=== PATIENT | female | born 1975 | race Caucasian/White ===

== ENCOUNTER 2016-04-26 09:48 | Emergency (ER) | payer BC, MEDICAID ==
[2016-04-26 11:24] VITALS: BP 120/79
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
== END 2016-04-26 12:15 | disposition home or self-care (01) ==
LOC: UCEAST 09:48
DX: J40 Bronchitis, not specified as acute or chronic (principal); R09.81 Nasal congestion; Z88.5 Allergy status to narcotic agent; Z88.6 Allergy status to analgesic agent; Z88.2 Allergy status to sulfonamides; Z96.652 Presence of left artificial knee joint; Z90.49 Acquired absence of other specified parts of digestive tract; Z72.0 Tobacco use
CPT/HCPCS: 99211; G0463

== ENCOUNTER 2017-04-05 17:10 | Emergency (ER) | payer BC, MEDICAID ==
--- OUTSIDE RECORDS SUMMARY | 2017-04-05 17:33 | XMS REPORT ---
:1975 External Reference #:[id number] Author Organization [facility] Address [address] [address] Phone [phone] Care Team Providers Name Role Phone Bessie Garrett MD Primary Care Physician Unavailable Payers Type Date Identification Numbers Payment Provider Subscriber Commercial Policy Number: [id number] JULIO Justin Del Rosario PayID: [id number] [address] [address] A[place]UR[place] Allen [address] Medigap Part B Effective: 2015 Policy Number: [id number] Medicaid Brenna Del Rosario Group Name: 1 1 [address] PayID: [id number] [place] [address] Medigap Part B Expires: 2016 Policy Number: Willem Del Rosario [id number] PayID: [id number] [address] [address] AMAURY Molina [address] Medigap Part B Effective: 2013 Policy Number: JULIO Justin Del Rosario [id number] Expires: 2016 PayID: [id number] [address] [address] A[place]UR[place] Allen [address] Medigap Part B Effective: Policy Number: Willem Del Rosario 2005 [id number] JR Expires: 2012 Group Name: Expires [address] [address] PayID: [id number] AMAURY Molina [id number] Problems Date Description Provider Status Onset: 11/11/2010 Anxiety state Cori Kaur N.PDottie Active Onset: 11/11/2010 Depressive disorder Cori Kaur N.Rizwan Active Onset: 11/11/2010 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 Active Onset: 02/25/2016 Knee pain Guille Jimenez M.D. Active Onset: 02/25/2016 Arthroplasty of knee Guille Jimenez M.D. Active Onset: 02/25/2016 Arthralgia of the pelvic region and Guille Jimenez M.D. Active thigh Family History Date Family Member(s) Problem(s) Comments General Heart Disease General Cancer Father due to brain hemorrhage () - age 49 Mother Hypertension Breast Cancer age 72 First Brother Alive And Well age 52 Second Brother Hypertension age 45 First Sister Hypertension Leiden Factor V, Degenerative Disc Disease age 49 Social History Type Date Description Comments Marital Status Occupation Stylist ETOH Use Rarely consumes alcohol Smoking Patient is a former smoker As a teen smoked casually Exercise Type/Frequency Exercises sporadically Currently unable to due to chronic knee pain Allergies, Adverse Reactions, Alerts Date Description Reaction Status Severity Comments 11/27/2009 Latex Urticaria, TOUCH ONLY active Moderate 11/27/2009 Compazine LOCK JAW active Moderate 11/27/2009 Codeine Nausea and Vomiting active Severe 11/27/2009 Sulfa SWELLING active Severe 11/27/2009 Darvocet Urticaria active Severe 11/27/2009 Demerol SEIZURE active Severe 11/28/2009 Reglan ANXIOUS active Moderate 01/30/2016 Ibuprofen active bleeding ulcers. Medications Medication Date Status Form Strength Qnty SIG Indications Ordering Provider Tramadol HCL 03/08 Active Tablets 50mg 60tab 1 - 2 R10.12 Bessie /2017 s tablets Cotton, every 6 M.D. hours as needed T.E.D. 03/08 Active Misc 1Pair for daily Bessie Anti-Embolism use Cotton, Stockings Thigh M.D. High Cyclobenzaprine 03/04 Active Tablets 10mg 30tab 1 tablet 3 M79.605 Bessie HCL s times Cotton, daily as M.D. needed Warfarin Sodium 03/04 Active Tablets 5mg 60tab take 2 I82.492 Bessie s tablets Cotton, tonight M.D. and and Tuesday, then 1 tablet daily Oxycodone HCL 03/04 Active Tablets 5mg 40tab 1 tabs by I82.492 Bessie /2017 s mouth Cotton, every 4 M.D. hours as needed Trazodone HCL 04/02 Active Tablets 100mg 60tab Take 2 s Tablets By Varn, N.P. Mouth At Bedtime Omeprazole 03/[address] 20mg 180ta 1 by mouth Z23 bs twice a Varn, N.P. day Topamax 03/25 Active Tablets 25mg 120ta 2 by mouth bs twice a Varn, N.P. day Gabapentin 01/29 Active Capsules 300mg 60cap 2 by mouth M25.562 s at bedtime Varn, N.P. Tylenol Active Capsules 325mg once a day Unknown / Zofran Active Tablets 4mg 1 tab by Unknown /0000 mouth every 6 hours as needed nausea Compression 03/08 Hx Misc 1Pair knee high [facility] - wear Cotton, - daily, M.D. 03/08 remove at night dx z86.718 Propranolol HCL 05/19 Hx Tablets 60mg 30tab 1 by mouth G43.909 s every day Varn, N.P. Trazodone HCL 03/19 Hx Tablets 50mg 30tab 1 tablet s at bedtime Varn, N.P. - as needed 04/02 Gabapentin 03/05 Hx Tablets 600mg 60tab Take 1 by s mouth Barbara, - twice a M.D. Neurontin 02/24 Hx Capsules 100mg 60cap additional s one by Barbara, - mouth M.D. 03/29 night at bedtime, may take second during the day No Active 01/29 Hx Unknown Medications - 01/29 Celebrex 07/03 Hx Capsules 200mg 60cap 1 by mouth G89.4 s up to Varn, N.P. - twice 01/29 daily /2015 Tramadol HCL 01/09 Hx Tablets 50mg 40tab 1 - 2 R10.12 s tablets Varn, N.P. - every 6 04/03 hours needed Alprazolam 12/30 Hx Tablets 0.25mg 30tab one by s mouth up Varn, N.P. - to twice 04/03 daily, needed for anxiety Promethazine HCL 09/30 Hx Tablets 25mg 30tab One po q 6 577.0 s hrs pn Varn, N.P. - nausea 04/03 Tramadol HCL 09/30 Hx Tablets 50mg 40tab 1 - 2 577.0 s tablets Varn, N.P. - every 6 08/12 hours needed Hydrocodone-Acet 09/18 Hx Tablets 5-325mg 30tab 1-2 tabs 789.06 Marcellus aminophen s by mouth David TRAVELING SALES REPRESENTATIVE - q4 hours 09/19 as needed pain limit 6 tabs per day Wellbutrin SR 08/14 Hx 150mg 30uni one daily ts by mouth Isamar [employer]VELING SALES REPRESENTATIVE - 08/14 Wellbutrin XL 08/14 Hx Tablets ER 150mg 30tab 1 by mouth 24HR s every day Varn, N.P. - 10/31 Concerta 07/22 Hx Tablets ER 54mg 30tab 1 by mouth s every day Varn, N.P. - 10/31 Tramadol HCL 07/14 Hx Tablets 50mg 40tab 2 tablets Arnol E. s every 6 Irene, - hours as M.D. 08/14 needed Famciclovir 07/14 Hx Tablets 500mg 1 by mouth three a - day 08/29 Alprazolam 06/28 Hx Tablets 0.5mg 30tab one by Cori s mouth up Varn, N.P. - to twice a 12/30 day needed anxiety Methylphenidate 06/28 Hx Tablets 10mg 30tab one by Cori HCL s mouth Varn, N.P. - every 11/01 Ultracet 06/11 Hx Tablets 37.5-325m 30tab one by g s mouth Barbara, - every 6 M.D. 08/14 hours needed for pain Triamcinolone 06/10 Hx Cream 0.1% 30gm apply 782.1 Cori Acetonide twice a Varn, N.P. - day until 09/18 Diflucan 03/15 Hx Tablets 150mg 3tabs take 1 616.10 Basil tablet PRISCA Penn - every 72 06/10 hrs for doses Nortriptyline 02/26 Hx Capsules 75mg 60cap 2 tabs by Cori s mouth Varn, N.P. - every 06/26 night at bedtime Percocet 02/26 Hx Tablets 5-325mg 48tab 1 by mouth s daily as Barbara, - needed M.D. 06/15 pain Nortriptyline 02/08 Hx Capsules 25mg 40cap two tabs s po qhs, Barbara, - increase M.D. 02/26 to 3 tabs /2013 on 02/18, then 4 tabs on 02/22. Cyclobenzaprine 02/06 Hx Tablets 10mg 30tab one by s mouth Barbara, - every 8 M.D. 07/16 hours needed Percocet 01/31 Hx Tablets 10-325mg 21tab 1 by mouth s bid Barbara, - prn,take M.D. 02/26 with additiona esl tylenol tab if inadequate pain relief. After 7 days, decrease to one qd Percocet 01/30 Hx Tablets 10-650mg 112ta one tab po bs q6H prn Barbara, - M.D. 01/31 Morphine Sulfate 01/25 Hx Tablets ER 30mg 21tab 1 tab by Guille ER s mouth Barbara, - twice a M.D. 02/08 day for pain x 7 days, then one tab po daily x 7 days Oxycodone HCL 01/21 Hx Capsules 5mg 16cap 1-2 tabs s [id number] as Barbara, - needed for M.D. 01/30 break through pain Coumadin 01/15 Hx Tablets 2.5mg 60tab take as s directed Barbara, - at 5pm M.D. 02/08 Colace 01/15 Hx Capsules 100mg 60cap one s capsule Barbara, - two times M.D. 03/14 a day needed constipati on Cipro 01/12 Hx Tablets 500mg 10tab 1 table by Kostas s mouth Maurer, - twice a M.D. Mupirocin 01/08 Hx Ointment 2% 22gm apply once 719.46 daily to Vincent, N.P. - rash 06/10 Seasonique 11/22 Hx Tablets 0.15-0.03 91tab take 1 &0.01 s tablet by Vincent N.P. - mg mouth once 08/29 a Oxycodone HCL 09/06 Hx Capsules 5mg 24cap 1-2 tab by s mouth Barbara, - every 6 M.D. 09/12 hours needed pain Oxycodone HCL 08/29 Hx Capsules 5mg 98cap one to two s tabs by Barbara, - mouth four M.D. 12/18 times day as needed severe pain Percocet 08/23 Hx Tablets 5-325mg 46tab 1-2 tabs s by mouth Barbara, - q4-6 hours M.D. 01/30 as needed for pain. Augmentin 07/23 Hx Tablets 500-125mg 14tab take 1 786.2 s tablet by Livier, - mouth M.D. 08/28 every hours Cleocin 07/20 Hx Cream 2% 1unit 1 616.10 s applicator Jerica, - intravagin M.D., [facility] 07/30 ally at bedtime for 7 nights Azithromycin 07/18 Hx Tablets 250mg 6tabs two tabs 786.2 day one, Jerica, - one daily M.D., FACP 07/23 till Flovent HFA 07/16 Hx Aerosol 44mcg/Act 1unit 2 puffs 786.2 s twice Jerica, - daily for M.D., FACP 08/15 Benzonatate 07/16 Hx Capsules 200mg 40cap take 1 786.2 s capsule by Jerica, - mouth M.D., FACP 07/30 times a day Cleocin 06/15 Hx Cream 2% 1unit 1 616.10 s applicator Varn, N.P. - intravagin 07/16 ally at bedtime for 7 nights Metronidazole 05/23 Hx Gel 0.75% QS insert 1 Vaginal applicator Livier, - ful M.D. 07/16 vaginally daily for 5 days at bedtime for vaginosis caused by bacteria Diflucan 05/22 Hx Tablets 150mg 3tabs take 1 616.10 tablet Livier, - every 72 M.D. 07/16 hrs for doses Cyclobenzaprine 04/08 Hx Tablets 10mg 90tab Take One s Tablet By Livier, - Mouth M.D. 05/22 Times Daily as Needed Tramadol HCL 03/09 Hx Tablets 50mg 10tab Take 03/22 338.4 s tablet Varn, N.P. - every 8hrs 04/09 prn pain Tramadol HCL 03/06 Hx Tablets 50mg 8tabs Take 03/22 525.9 tablet Livier, - every 8hrs M.D. 03/09 prn pain Morphine Sulfate 02/07 Hx Tablets 15mg 60tab Take 1 s tablet Livier, - twice M.D. 05/22 daily Trazodone HCL 01/15 Hx Tablets 100mg 60tab one to two s by mouth Varn, N.P. - at bedtime 06/26 as needed sleep Clonidine HCL 01/15 Hx Tablets 0.1mg 60tab Take 1 292.0 s tablet Livier, - twice M.D. 03/02 Citalopram 01/15 Hx Tablets 10mg 60tab take 1 300.02 Nancy Hydrobromide s tablet Livier, - daily for M.D. 05/22 7 days then increase to 2 tablets daily Morphine Sulfate 12/28 Hx Caps ER 30mg 21cap Take 1 Guille ER 24HR s capsule by Barbara, - mouth two M.D. 01/25 times a day for 7 days. Then take 1 capsule by mouth daily for 7 days. Morphine Sulfate 12/27 Hx Caps ER 10mg 22cap Take 1 24HR s tablet Livier, - daily with M.D. 12/28 tablet for total of 30mg per day Morphine Sulfate 12/25 Hx Tablets 30mg 30tab 1 po daily s Livier, - M.D. 12/26 Flovent HFA 12/18 Hx Aerosol 44mcg/Act 10.60 inhale 1 0gm puff by Livier, - mouth M.D. 03/06 daily for asthma Azithromycin 12/14 Hx Tablets 250mg 6tabs two tabs day one, Varn, N.P. - one daily 12/18 till Proair HFA 12/14 Hx Aerosol 108(90Bas 3unit 1 to 2 e) s inhalation Varn, N.P. - mcg/Act s every 4 12/28 hours needed Benzonatate 12/14 Hx Capsules 100mg 30cap one by s mouth Varn, N.P. - three 12/28 times daily as needed for cough Tramadol HCL 12/08 Hx Tablets 50mg 90tab Take 1 s tablet Livier, - every 8hrs M.D. 01/15 prn Flexeril 12/04 Hx Tablets 10mg 90tab 1 po tid 719.46 s prn Livier, - M.D. 05/22 Morphine Sulfate 11/17 Hx Caps ER 20mg 30cap Take 1 24HR s tablet Livier, - once daily M.D. 01/15 Butrans 11/13 Hx Patches 10mcg/HR 4unit Apply 1 338.4 Weekly s patch Livier, - every 7 M.D. Baclofen 11/13 Hx Tablets 10mg 30tab take 03/22 719.46 s to 1 Livier, - tablet up M.D. 12/04 to times daily for muscle spasm Percocet 10/25 Hx Tablets 5-325mg 6tabs take 1 719.46 tablet Livier, - every M.D. 11/17 6-8hrs with 7.5mg tablet for pain Percocet 10/25 Hx Tablets 7.5-325mg 20tab take 1 s tablet bid Livier, - prn pain M.D. 12/08 Percocet 09/04 Hx Tablets 7.5-325mg 56tab Take 1 719.46 s tablet Varn, N.P. - every 6hrs 10/25 for pain Percocet 09/04 Hx Tablets 5-325mg 14tab Take 1 719.46 s tablet Livier, - once daily M.D. 09/18 with 7.5mg tablet for pain Percocet 08/23 Hx Tablets 10-650mg 14tab take 1 s tablet Livier, - once daily M.D. 10/02 as needed for pain relief Percocet 07/31 Hx Tablets 5-325mg 42tab Take 1 s tablet tid Livier, - with 7.5mg M.D. 08/23 tablet for pain Meloxicam 07/21 Hx Tablets 7.5mg 60tab Take One s Tablet By Livier, - Mouth M.D. 01/15 Twice Daily For 5 Days Then Twice Daily Asneeded Keflex 07/03 Hx Capsules 500mg 28cap 1 po qid x s 7 days Julio Cesar Jimenez M.D. 09/04 Percocet 06/14 Hx Tablets 7.5-325mg 42tab Take 1 s tablet Livier, - three time M.D. 08/23 daily with 5mg tablet for pain Percocet 06/12 Hx Tablets 5-325mg 40tab 1-2 po Guille s q4-6h prn Julio Cesar Jimenez pain M.D. 06/14 Ciprofloxacin 06/02 Hx Tablets 250mg 20tab one po bid Rebecca HCL Julio Cesar Hinojosa.DDottie 09/04 Phenazopyridine 06/02 Hx Tablets 100mg 6tabs 1 po bid Rebecca HCL Julio Cesar Peterson M.D. 01/15 Nitrofurantoin 04/26 Hx Capsules 100mg 14cap one po bid 599.0 Cori Monohydrate s for 7 days Varn, N.P. - 05/03 Phenazopyridine 04/26 Hx Tablets 100mg 9tabs 1 tablet 599.0 HCL po tid prn Varn, N.P. - 06/02 Flexeril 03/17 Hx Tablets 10mg 90tab 1 po tid 719.46 s prn Livier - M.DDottie 11/13 Flexeril 03/02 Hx Tablets 5mg 90tab 1 tablet 719.46 s three Varn, N.P. - times a 03/17 day needed Tramadol HCL 01/26 Hx Tablets 50mg 240ta 2 tablets bs May take q Livier, - 6h prn M.D. 11/13 pain Percocet 01/20 Hx Tablets 5-325mg 120ta take 1-2 bs tabs po Varn, N.P. - tid prn 06/02 pain Oxycodone HCL 01/10 Hx Tablets 10mg 40tab 1 po q 5pm 719.46 s & [facility] Barbara, - tue-tue, 1 M.D. 02/02 po q 6h sat-sun Vicodin HP 12/22 Hx Tablets 10-660mg 40tab 1 tabs po s qhs as Barbara, - needed for M.D. 02/02 pain Tue to Tue, may take po q6 Sat/Sun, start one week before surgery instead of the Percocet Azithromycin 12/16 Hx Tablets 250mg 6tabs two tabs day one, Varn, N.P. - one daily 12/26 till Benzonatate 12/16 Hx Capsules 200mg 30cap one by s mouth Varn, N.P. - three 12/26 times daily as needed for cough Lidoderm 12/08 Hx Patches 5% 30uni apply to ts affected Varn, N.P. - area for 09/04 12 hrs, remove for 12 hrs and repeat prn Aldara 12/06 Hx Cream 5% 12pac apply thin kets film to Varn, N.P. - affected 01/05 area times weekly for 4 weeks Voltaren Gel 5 10/31 Hx Gel 1% 5Tube apply 4 Obinna Pack (5 X 100 /2011 s grams Young, Gram Tubes Per - directly M.D. Month) 03/06 to area 4 times daily Promethazine HCL 10/31 Hx Tablets 25mg 60tab one po s every 12 Varn, N.P. - hours 05/22 Aldara 10/24 Hx Cream 5% 12pac apply thin 078.11 kets film to Varn, N.P. - affected 11/23 area times weekly for 4 weeks Percocet 10/24 Hx Tablets 10-650mg 40tab 1 po at 5 719.46 s pm and Barbara, - repeat at M.D. 01/10 bedtime Tuesday - Tuesday 1 po q 6 hours prn on tuesday and tuesday Percocet 08/22 Hx Tablets 5-325mg 120ta 2 po at 5 715.16 Obinna bs pm and july Usman, - repeat at M.D. 10/24 bed prn pain Tramadol HCL 07/19 Hx Tablets 50mg 120ta 2 Tablets bs three Varn, N.P. - times 05/24 Xanax 07/12 Hx Tablets 0.25mg 4tabs one by mouth Jerica, - prior to M.D., [facility] 08/22 travel Azithromycin 07/01 Hx Tablets 500mg 2tabs Tgake 2 tablets po Jerica, - M.D., [facility] 08/05 Cleocin 06/30 Hx Cream 2% 1unit 1 616.10 Bessie /2012 s applicator Cotton, - intravagin M.D. 07/07 all for 7 nights Oxycodone/Acetam 06/21 Hx Tablets 10-325mg 30tab take 1 Nancy inophen s tablet q Livier, - as needed M.D. 08/22 for pain control Oxycodone/Acetam 05/23 Hx Tablets 5-325mg 90tab 1-2 tab by Obinna inophen s mouth Usman, - every 4-6 M.D. 06/21 hours needed for pain Gabapentin 05/23 Hx Tablets 600mg 90tab 1 po tid s Varn, N.P. - 09/04 Percocet 05/11 Hx Tablets 5-325mg 20tab 1 po q4-6h s prn pain Usman, - M.D. 06/21 Promethazine HCL 05/04 Hx Tablets 12.5mg 30tab 1-2 tabs s by mouth Varn, N.P. - every 6 10/31 hours needed for nausea Celebrex 05/04 Hx Capsules 200mg 60cap 1 capsule s twice a Varn, N.P. - day as 01/15 needed Hydrocodone/Acet 04/26 Hx Tablets 5-325mg 45tab 1-2 po qid amino s prn Usman, - M.D. 06/21 Ciprofloxacin 04/08 Hx Tablets 250mg 6tabs one po bid Genesis HCL for 3 days Julio Cesar Pizano M.D., FACP 04/11 Clindamycin 04/06 Hx Cream 2% 1tube one 616.10 Bessie Phosphate applicator Cotton, - intravagin M.D. 04/13 ally hs for 7 nights Metronidazole 03/05 Hx Gel 0.75% 70gm Apply bid Bessie Vaginal intravagin Cotton, - ally x 5 M.D. Azithromycin 12/17 Hx Tablets 250mg 6tabs two tabs 461.9 Genesis day one, Jerica, - one daily M.D., FACP 12/27 till Fluticasone 12/17 Hx Suspension 50mcg/Act 1Mont 1 spray 461.9 Genesis Propionate h each Jerica, - nostril M.D., FACP 12/31 daily as needed Fluconazole 12/17 Hx Tablets 150mg 2tabs one by 461.9 mouth july Jerica, - repeat in M.D., [facility] 06/21 3 days needed Xanax 12/17 Hx Tablets 0.25mg 20tab one by 300.00 s mouth up Jerica, - to three M.D., FACP 06/21 daily as needed for anxiety Buspirone HCL 12/01 Hx Tablets 10mg 60tab 1 po bid 300.00 s Julio Cesar Pizano M.D., [facility] 12/17 Ranitidine HCL 12/01 Hx Tablets 150mg 60tab take one 787.02 s tablet by Jerica, - mouth M.D., [facility] 06/21 twice a day Xanax 10/29 Hx Tablets 0.25mg 15tab one by s mouth up Jerica, - to three M.D., [facility] 06/21 daily as needed for anxiety Metronidazole 10/21 Hx Gel 0.75% 180gm apply at 706.1 bedtime to Gerry, - affected M.D. 04/23 Macrobid 09/15 Hx Capsules 100mg 14cap 1 po bid s for 7 days Julio Cesar Pizano M.D., [facility] 09/22 Neurontin 07/28 Hx Tablets 600mg 7tabs 1 po qd Julio Cesar Pizano M.D., [facility] 10/24 Metadate CD 07/23 Hx Capsules ER 10mg 150ca 3 tablets ps at 8:00 Gerry, - am, 2 M.D. 11/17 tablets 2 pm Doxepin HCL 03/11 Hx Capsules 50mg 1 capsule at bedtime Gerry - M.DDottie 03/25 Tramadol HCL 03/11 Hx Tablets 50mg 90tab 1 to 2 Bessie /2010 s tablets [place], - every 4 - M.D. 06/21 6 hours needed for pain Wellbutrin XL 03/11 Hx Tablets ER 150mg 90tab 1 tablet 24HR s every [place], - morning M.D. 10/24 Lotrisone 02/24 Hx Cream 1-0.05% 15gm apply externally [place], - bid-tid M.D. 03/10 Zovia 1/35E 02/24 Hx Tablets 1-35mg-mc 1Mo 1 Tablet g Daily Gerry, - M.DDottie 11/17 Ortho Tri-Cyclen 01/05 Hx Tablets 0.18/0.21 1Mo 1 po qd 5/0.25 [place], - mg-2 M.D. 02/24 Benzaclin With 01/05 Hx Gel 1-5% 50gm Apply Twice Gerry, - Daily M.D. 04/15 Methylin ER 11/19 Hx Tablets ER 10mg 150ta 3 tablets bs at 8 am Gerry, - M.DDottie 07/23 tablets at 2 pm Lybrel Hx Patch 90-20mcg 1 pill daily Gerry - M.DDottie 01/05 Celebrex Hx Capsules 200mg 90cap 1 capsule s twice a Gerry, - day as M.D. 12/[address] Hx C[address]ules [address] 40mg 1 capsule daily Gerry - M.DDottie 11/28 Doxepin HCL Hx Capsules 100mg 2 tablets at bedtime Gerry - M.DDottie 01/05 Wellbutrin XL Hx TB24 300mg 30uni Take One ts Tablet By Gerry, - Mouth One M.D. 03/11 Time Trazodone HCL Hx Tablets 50mg 60tab 1 or 2 Cori /0000 s tablets at Varn, N.P. - bedtime as 01/15 Lybrel Hx Tablets 90-20mcg 1 tablet daily Gerry - M.DDottie 01/05 Remeron Hx Tablets 15mg 90tab 1 po hs Unknown / s - 08/05 Seroquel Hx Tablets 25mg 90tab 1 tablet Unknown /0000 s in morning - and at 08/05 bedtime /2011 Lamictal 00 Hx Tablets 100mg 180ta Take 200mg Nancy /0000 bs once daily Livier - M.DDottie 03/12 Gabapentin Hx Tablets 600mg 60tab Take 2 Nancy /0000 s tablets Livier, - QHS M.D. 05/22 Gabapentin Hx Capsules 300mg 120ca Take Unknown /0000 ps 1200mg at night Adderall Hx Tablets 10mg 60tab 2 po qam Unknown /0000 s and 3 po - qpm 11/22 Citalopram Hx Tablets 20mg 1 po qd 300.02 Unknown Hydrobromide /0000 - 01/08 Vyvanse Hx Capsules 70mg 1 capsule Unknown /0000 by mouth - daily 03/12 Xanax Hx Tablets 1 po bid Varn, /0000 prn Cori - TRAVELING SALES REPRESENTATIVE 08/29 Gabapentin Hx Tablets 600mg 120ta take 1 Guille / bs tablet by Barbara, - mouth in M.D. 06/26 morning, take 2 tabs by mouth at bedtime Oxycontin 00/ Hx Tab ER 12H 10mg by mouth Unknown /0000 Abuse-Det every 12 - hours 10/10 Oxycodone HCL Hx Capsules 5mg 20cap 1 tablet Cori / s every 6 Varn, N.P. - hours as 10/02 pain Oxycodone 00 Hx 5/325 mg 1-2 q 8 Unknown /Acetaminophen /0000 hours prn - 01/29 Ferrous Sulfate Hx Tablets 325(65Fe) 1 by mouth Unknown /0000 mg every day - 01/29 Famotidine Hx Tablets 40mg 1 by mouth Unknown /0000 twice a - day 01/29 Celebrex Hx Capsules 200mg 1 by mouth Unknown /0000 every day - 01/10 Neurontin Hx Tablets 600mg take one Unknown /0000 tablet by - mouth in 04/02 morning and afternoon. Medications Administered in Office Medication Date Status Form Strength Qnty SIG Indications Ordering Provider PPD Administered Injection Cori Owens Varn, N.P. PPD Administered Injection Cori 017 Vincent N.Rizwan PPD Administered Injection Nurse Visit 015 A Depomedrol Administered Injection Obinna 80MG 012 Swathi Mary Immunizations CPT Code Status Date Vaccine Reaction Lot # [id number] Given 01/10/2017 Influenza Virus Vaccine, No immediate [id number] Quadrivalent, Split, reaction...jh Preservative Free Q2039 Given 01/20/2016 Flu Vaccine NOS [id number] Given 01/10/2014 Flu Vaccine Split Virus [id number] Preservative Free For Indiv 3Yr Older 15705 Given 11/22/2013 Pneumococcal Conjugate [id number] Vaccine 13 Valent For Intramuscular Use 09474 Given 01/30/2013 Flu Vaccine Split Virus [id number] Preservative Free For Indiv 3Yr Older Q2038 Given 01/03/2012 Fluzone Vaccine [id number] Given 08/23/2011 Tdap - [id number] Tetanus/Diptheria/Acellula r Pertussis 12041 Given 01/13/2011 Influenza Virus 3Yrs & [id number] Over 71450 Given 11/26/2008 Influenza Virus 3Yrs & Over Vital Signs Date Vital Result Comment 03/04/2017 Weight 129.25 lb Heart Rate 80 /min BP Systolic 110 mmHg BP Diastolic 70 mmHg Body Temperature 98.8 F O2 % BldC Oximetry 99 % 02/15/2017 Weight 127.00 lb Heart Rate 72 /min BP Systolic 120 mmHg BP Diastolic 80 mmHg Respiratory Rate 16 /min Body Temperature 99.1 F 01/25/2017 Weight 127.50 lb Heart Rate 68 /min BP Systolic 104 mmHg BP Diastolic 60 mmHg Body Temperature 98.5 F O2 % BldC Oximetry 98 % 01/10/2017 Weight 129.75 lb Heart Rate 77 /min BP Systolic 104 mmHg BP Diastolic 66 mmHg Body Temperature 98.8 F O2 % BldC Oximetry 98 % 05/19/2016 Height 64 inches 5'4" Weight 158.00 lb Heart Rate 74 /min BP Systolic 100 mmHg BP Diastolic 60 mmHg O2 % BldC Oximetry 98 % BMI (Body Mass Index) 27.1 kg/m2 03/29/2016 Height 64 inches 5'4" Weight 158.00 lb Heart Rate 81 /min BP Systolic 110 mmHg BP Diastolic 90 mmHg Body Temperature 98.6 F O2 % BldC Oximetry 99 % BMI (Body Mass Index) 27.1 kg/m2 02/25/2016 Height 64 inches 5'4" Weight 148.00 lb Heart Rate 76 /min Respiratory Rate 17 /min Pain Level 5 BMI (Body Mass Index) 25.4 kg/m2 01/30/2016 Weight 148.25 lb Heart Rate 69 /min BP Systolic Sitting 127 mmHg BP Diastolic Sitting 89 mmHg O2 % BldC Oximetry 100 % 07/04/2015 Weight 136.25 lb Heart Rate 99 /min BP Systolic Sitting 117 mmHg BP Diastolic Sitting 75 mmHg Body Temperature 99.4 F O2 % BldC Oximetry 98 % 06/27/2015 Weight 135.00 lb Heart Rate 110 /min BP Systolic Sitting 123 mmHg BP Diastolic Sitting 69 mmHg 04/03/2015 Weight 136.00 lb Heart Rate 107 /min BP Systolic Sitting 128 mmHg BP Diastolic Sitting 72 mmHg Body Temperature 97.4 F O2 % BldC Oximetry 99 % 01/09/2015 Weight 141.00 lb Heart Rate 97 /min BP Systolic Sitting 130 mmHg BP Diastolic Sitting 88 mmHg Body Temperature 98.6 F Pain Level 6 O2 % BldC Oximetry 99 % 10/04/2014 Weight 139.00 lb Heart Rate 96 /min BP Systolic Sitting 103 mmHg BP Diastolic Sitting 70 mmHg Body Temperature 99.3 F 09/30/2014 Weight 132.00 lb Heart Rate 90 /min BP Systolic Sitting 121 mmHg BP Diastolic Sitting 75 mmHg Body Temperature 98.5 F Pain Level 6 09/18/2014 Height 64 inches 5'4" Weight 134.75 lb Heart Rate 117 /min BP Systolic Sitting 128 mmHg BP Diastolic Sitting 84 mmHg Body Temperature 98.3 F Pain Level 7 O2 % BldC Oximetry 98 % BMI (Body Mass Index) 23.1 kg/m2 08/29/2014 Height 64 inches 5'4" Weight 141.00 lb Heart Rate 96 /min BP Systolic 118 mmHg BP Diastolic 86 mmHg Body Temperature 97.5 F BMI (Body Mass Index) 24.2 kg/m2 08/14/2014 Weight 136.00 lb Heart Rate 87 /min BP Systolic Sitting 124 mmHg BP Diastolic Sitting 75 mmHg Body Temperature 98.2 F 07/16/2014 Weight 139.75 lb Heart Rate 87 /min BP Systolic Sitting 122 mmHg BP Diastolic Sitting 76 mmHg Body Temperature 98.3 F O2 % BldC Oximetry 98 % 06/11/2014 Height 64 inches 5'4" Heart Rate 98 /min BP Systolic 112 mmHg BP Diastolic 72 mmHg 06/10/2014 Weight 135.00 lb Heart Rate 95 /min BP Systolic Sitting 124 mmHg BP Diastolic Sitting 78 mmHg Body Temperature 97.4 F 04/02/2014 Height 64 inches 5'4" Heart Rate 104 /min BP Systolic 124 mmHg BP Diastolic 83 mmHg 03/22/2014 Height 64 inches 5'4" Weight 128.00 lb Pain Level 7 BMI (Body Mass Index) 22.0 kg/m2 03/15/2014 Height 64 inches 5'4" Weight 132.75 lb Heart Rate 103 /min BP Systolic Sitting 102 mmHg BP Diastolic Sitting 70 mmHg Body Temperature 98.9 F BMI (Body Mass Index) 22.8 kg/m2 03/12/2014 Height 64 inches 5'4" Weight 125.00 lb Pain Level 7 BMI (Body Mass Index) 21.5 kg/m2 02/26/2014 Height 64 inches 5'4" Weight 125.00 lb Body Temperature 98.2 F BMI (Body Mass Index) 21.5 kg/m2 02/13/2014 Height 64 inches 5'4" Heart Rate 109 /min BP Systolic 106 mmHg BP Diastolic 65 mmHg 02/01/2014 Height 64 inches 5'4" Heart Rate 100 /min BP Systolic 98 mmHg BP Diastolic 70 mmHg 01/30/2014 Height 64 inches 5'4" Heart Rate 103 /min BP Systolic 98 mmHg BP Diastolic 64 mmHg 01/08/2014 Height 64 inches 5'4" Weight 131.25 lb Heart Rate 88 /min BP Systolic Sitting 110 mmHg BP Diastolic Sitting 68 mmHg Body Temperature 98.9 F BMI (Body Mass Index) 22.5 kg/m2 01/02/2014 Height 64 inches 5'4" Heart Rate 83 /min BP Systolic 126 mmHg BP Diastolic 87 mmHg 11/28/2013 Height 64 inches 5'4" Heart Rate 100 /min BP Systolic 131 mmHg BP Diastolic 79 mmHg 11/22/2013 Height 64 inches 5'4" Weight 136.00 lb Heart Rate 68 /min BP Systolic Sitting 110 mmHg BP Diastolic Sitting 70 mmHg Body Temperature 97.8 F BMI (Body Mass Index) 23.3 kg/m2 11/14/2013 Height 64 inches 5'4" Heart Rate 91 /min BP Systolic 121 mmHg BP Diastolic 89 mmHg 10/24/2013 Height 64 inches 5'4" Weight 140.00 lb Pain Level 6 BMI (Body Mass Index) 24.0 kg/m2 10/10/2013 Height 64 inches 5'4" Weight 140.00 lb Pain Level 6 BMI (Body Mass Index) 24.0 kg/m2 09/26/2013 Height 64 inches 5'4" Heart Rate 89 /min BP Systolic 122 mmHg BP Diastolic 88 mmHg 09/12/2013 Height 64 inches 5'4" Weight 140.00 lb Heart Rate 102 /min BP Systolic 124 mmHg BP Diastolic 81 mmHg BMI (Body Mass Index) 24.0 kg/m2 09/06/2013 Height 64 inches 5'4" Weight 140.00 lb Body Temperature 98.4 F BMI (Body Mass Index) 24.0 kg/m2 08/29/2013 Height 64 inches 5'4" Heart Rate 98 /min BP Systolic 115 mmHg BP Diastolic 79 mmHg 08/01/2013 Height 64 inches 5'4" Heart Rate 85 /min BP Systolic 115 mmHg BP Diastolic 72 mmHg 07/23/2013 Height 64 inches 5'4" Weight 143.00 lb Heart Rate 102 /min BP Systolic Sitting 112 mmHg BP Diastolic Sitting 78 mmHg Body Temperature 99.1 F O2 % BldC Oximetry 99 % BMI (Body Mass Index) 24.5 kg/m2 07/16/2013 Height 64 inches 5'4" Weight 144.00 lb Heart Rate 94 /min BP Systolic Sitting 118 mmHg BP Diastolic Sitting 86 mmHg Respiratory Rate 15 /min Body Temperature 100.2 F O2 % BldC Oximetry 99 % BMI (Body Mass Index) 24.7 kg/m2 07/13/2013 Height 64 inches 5'4" Heart Rate 77 /min BP Systolic 123 mmHg BP Diastolic 76 mmHg 06/15/2013 Weight 146.50 lb Heart Rate 92 /min BP Systolic 112 mmHg BP Diastolic 72 mmHg Respiratory Rate 16 /min Body Temperature 98.4 F 05/22/2013 Weight 142.00 lb Heart Rate 78 /min BP Systolic Sitting 122 mmHg BP Diastolic Sitting 70 mmHg Respiratory Rate 15 /min Body Temperature 98.4 F 04/09/2013 Weight 148.50 lb Heart Rate 80 /min BP Systolic 122 mmHg BP Diastolic 86 mmHg Body Temperature 99.1 F 03/09/2013 Weight 155.25 lb Heart Rate 80 /min BP Systolic 126 mmHg BP Diastolic 86 mmHg Body Temperature 98.7 F 03/06/2013 Weight 160.00 lb Heart Rate 68 /min BP Systolic 128 mmHg BP Diastolic 88 mmHg 01/30/2013 Weight 150.25 lb Heart Rate 80 /min BP Systolic Sitting 120 mmHg BP Diastolic Sitting 64 mmHg 01/15/2013 Weight 153.50 lb Heart Rate 78 /min BP Systolic 104 mmHg BP Diastolic 78 mmHg 12/18/2012 Weight 151.00 lb Heart Rate 96 /min BP Systolic Sitting 124 mmHg BP Diastolic Sitting 80 mmHg 12/14/2012 Weight 153.00 lb Heart Rate 100 /min BP Systolic Sitting 118 mmHg BP Diastolic Sitting 74 mmHg Body Temperature 96.2 F O2 % BldC Oximetry 99 % 12/04/2012 Weight 151.75 lb Heart Rate 86 /min BP Systolic Sitting 108 mmHg BP Diastolic Sitting 72 mmHg 11/17/2012 Weight 151.00 lb Heart Rate 78 /min BP Systolic Sitting 124 mmHg BP Diastolic Sitting 80 mmHg 11/16/2012 Weight 152.50 lb Heart Rate 80 /min BP Systolic Sitting 132 mmHg BP Diastolic Sitting 90 mmHg 11/13/2012 Weight 152.00 lb Heart Rate 70 /min BP Systolic Sitting 120 mmHg BP Diastolic Sitting 80 mmHg Body Temperature 97.6 F 11/06/2012 Weight 154.00 lb Heart Rate 72 /min BP Systolic Sitting 124 mmHg BP Diastolic Sitting 76 mmHg 10/02/2012 Weight 159.00 lb Heart Rate 70 /min BP Systolic Sitting 118 mmHg BP Diastolic Sitting 70 mmHg 09/04/2012 Weight 158.00 lb Heart Rate 72 /min BP Systolic Sitting 120 mmHg BP Diastolic Sitting 84 mmHg 08/11/2012 Weight 165.00 lb Heart Rate 70 /min BP Systolic Sitting 106 mmHg BP Diastolic Sitting 80 mmHg 06/02/2012 Height 64 inches 5'4" Weight 162.00 lb Heart Rate 76 /min BP Systolic Sitting 110 mmHg BP Diastolic Sitting 70 mmHg Body Temperature 97.6 F BMI (Body Mass Index) 27.8 kg/m2 04/26/2012 Height 64 inches 5'4" Weight 151.00 lb Heart Rate 97.5 /min BP Systolic Sitting 122 mmHg BP Diastolic Sitting 70 mmHg BMI (Body Mass Index) 25.9 kg/m2 03/02/2012 Height 64 inches 5'4" Weight 152.50 lb Heart Rate 76 /min BP Systolic Sitting 100 mmHg BP Diastolic Sitting 62 mmHg BMI (Body Mass Index) 26.2 kg/m2 02/03/2012 Height 64 inches 5'4" Weight 147.00 lb Heart Rate 72 /min BP Systolic Sitting 112 mmHg BP Diastolic Sitting 66 mmHg BMI (Body Mass Index) 25.2 kg/m2 01/03/2012 Height 64 inches 5'4" Weight 141.00 lb Heart Rate 86 /min BP Systolic Sitting 104 mmHg BP Diastolic Sitting 70 mmHg BMI (Body Mass Index) 24.2 kg/m2 12/17/2011 Height 64 inches 5'4" Heart Rate 92 /min BP Systolic Sitting 104 mmHg BP Diastolic Sitting 60 mmHg Body Temperature 98.7 F 11/18/2011 Height 64 inches 5'4" Weight 131.50 lb Heart Rate 68 /min BP Systolic Sitting 104 mmHg BP Diastolic Sitting 70 mmHg BMI (Body Mass Index) 22.6 kg/m2 10/25/2011 Height 64 inches 5'4" Weight 126.00 lb Heart Rate 78 /min BP Systolic Sitting 126 mmHg BP Diastolic Sitting 74 mmHg BMI (Body Mass Index) 21.6 kg/m2 08/23/2011 Height 64 inches 5'4" Weight 127.00 lb Heart Rate 80 /min BP Systolic Sitting 102 mmHg BP Diastolic Sitting 56 mmHg BMI (Body Mass Index) 21.8 kg/m2 08/06/2011 Height 64 inches 5'4" Weight 126.00 lb Heart Rate 76 /min BP Systolic Sitting 128 mmHg BP Diastolic Sitting 74 mmHg BMI (Body Mass Index) 21.6 kg/m2 07/01/2011 Height 64 inches 5'4" Weight 132.00 lb Heart Rate 68 /min BP Systolic Sitting 108 mmHg BP Diastolic Sitting 70 mmHg Body Temperature 98.7 F BMI (Body Mass Index) 22.7 kg/m2 06/22/2011 Height 64 inches 5'4" Weight 127.00 lb Heart Rate 88 /min BP Systolic Sitting 110 mmHg BP Diastolic Sitting 72 mmHg BMI (Body Mass Index) 21.8 kg/m2 04/06/2011 Height 64 inches 5'4" Weight 123.00 lb Heart Rate 88 /min BP Systolic Sitting 118 mmHg BP Diastolic Sitting 74 mmHg Body Temperature 98.6 F BMI (Body Mass Index) 21.1 kg/m2 03/04/2011 Height 64 inches 5'4" Weight 121.00 lb Heart Rate 76 /min BP Systolic Sitting 108 mmHg BP Diastolic Sitting 76 mmHg Body Temperature 99.2 F BMI (Body Mass Index) 20.8 kg/m2 02/09/2011 Height 64 inches 5'4" Weight 125.00 lb Heart Rate 70 /min BP Systolic Sitting 112 mmHg BP Diastolic Sitting 68 mmHg BMI (Body Mass Index) 21.5 kg/m2 01/13/2011 Height 64 inches 5'4" Weight 118.00 lb Heart Rate 74 /min BP Systolic Sitting 112 mmHg BP Diastolic Sitting 68 mmHg BMI (Body Mass Index) 20.3 kg/m2 12/17/2010 Height 64 inches 5'4" Weight 119.00 lb Heart Rate 64 /min BP Systolic Sitting 118 mmHg L BP Diastolic Sitting 68 mmHg L BMI (Body Mass Index) 20.4 kg/m2 12/17/2010 Height 64 inches 5'4" 12/01/2010 Height 64 inches 5'4" Weight 123.00 lb Heart Rate 72 /min BP Systolic Sitting 110 mmHg l BP Diastolic Sitting 74 mmHg l BMI (Body Mass Index) 21.1 kg/m2 11/11/2010 Height 64 inches 5'4" Weight 121.00 lb Heart Rate 70 /min BP Systolic Sitting 98 mmHg BP Diastolic Sitting 62 mmHg BMI (Body Mass Index) 20.8 kg/m2 10/21/2010 Height 64 inches 5'4" Weight 128.00 lb Heart Rate 60 /min BP Systolic Sitting 100 mmHg BP Diastolic Sitting 62 mmHg BMI (Body Mass Index) 22.0 kg/m2 07/28/2010 Height 64 inches 5'4" Weight 131.00 lb Heart Rate 70 /min BP Systolic Sitting 108 mmHg BP Diastolic Sitting 70 mmHg BMI (Body Mass Index) 22.5 kg/m2 05/13/2010 Height 64 inches 5'4" Weight 142.00 lb Heart Rate 60 /min BP Systolic 110 mmHg BP Diastolic 70 mmHg BMI (Body Mass Index) 24.4 kg/m2 04/15/2010 Weight 144.00 lb Heart Rate 68 /min BP Systolic 118 mmHg BP Diastolic 60 mmHg 03/11/2010 Weight 144.00 lb Heart Rate 98 /min BP Systolic 120 mmHg BP Diastolic 84 mmHg 02/24/2010 Weight 145.25 lb Heart Rate 80 /min BP Systolic 112 mmHg BP Diastolic 78 mmHg 01/05/2010 Weight 143.00 lb Heart Rate 82 /min BP Systolic 120 mmHg BP Diastolic 88 mmHg 11/28/2009 Weight 116.00 lb Heart Rate 68 /min Results Test Date Test Result H/L Range Note Protime W/ Inr 03/24/2017 Prothrombin Time 29.4 Inr 2.4 Protime W/ Inr 03/22/2017 Prothrombin Time 96.0 Inr 8.0 Protime W/ Inr 03/11/2017 Prothrombin Time 41.2 Inr 3.4 Protime W/ Inr 03/08/2017 Inr 2.7 Laboratory test finding 03/05/2017 Protein S Activity 96 % 50 - 160 1 Lupus Anticoagulant AB 03/05/2017 Lac DRVVT Mix Ratio 1.1 ratio 0.0 - 1.1 2 Lup Hexthrombin Time (Bovine) 23 sec 15 - 23 3 Dil Vignesh Viper Kahlil Confirm 0.9 ratio 0.0 - 1.1 4 Special Coagulation Interp Performed 5 Prothrombin Time(Lac) 12.7 sec 6 Lac Inr 1.2 Lac Aptt 33 sec 26 - 36 Lac DRVVT Screen Ratio 1.2 ratio 0.0 - 1.1 Lupus Anticoagulant Interpreta See Comment 7 Lupus Anticoagulant Review By Daryl Barrientos M.D. 8 Laboratory test 03/05/2017 Protein C Activity 54 % 70 - 150 9 finding Xray 03/04/2017 VL Lower Ext Veins <pending> Left Laboratory test 03/04/2017 Partial Thrombo Time 26.3 seconds 26.0-36.3 finding PTT Inr/Protime 03/04/2017 Inr 0.91 0.77-1.02 10 Comp Metabolic Panel 03/04/2017 Sodium 140 mmol/L 133-145 Potassium 3.5 mmol/L 3.5-5.0 Co2 Carbon Dioxide 23 mmol/L 22-32 Glucose 102 mg/dL High 70-100 Blood Urea Nitrogen 11 mg/dL 6-24 Creatinine 0.71 mg/dL 0.51-0.95 BUN/Creatinine Ratio 15.5 8-20 Calcium 8.7 mg/dL 8.6-10.3 Total Protein 6.6 g/dL 6.4-8.9 Albumin 4.0 g/dL 3.2-5.2 Globulin 2.6 g/dL 2-4 Albumin/Globulin Ratio 1.5 1-3 Total Bilirubin 0.30 mg/dL 0.2-1.0 Alkaline Phosphatase 72 U/L 34-104 Alt 8 U/L 7-52 Ast 16 U/L 13-39 Egfr Non- 91.2 >60 Egfr 117.3 >60 11 Chloride 112 mmol/L High 101-111 Anion Gap 5 mmol/L 2-11 Factor 5 Leiden Mutation 03/04/2017 Factor V Leiden Mutation Negative Negative Factor V Leiden Interpretation See Comment 12 Factor V Leiden Reviewed By Ena Barrientos M.D. 13 CBC Auto Diff 03/04/2017 White Blood Count 12.5 10^3/uL High 3.5-10.8 Red Blood Count 4.56 10^6/uL 4.0-5.4 Hemoglobin 13.6 g/dL 12.0-16.0 Hematocrit 41 % 35-47 Mean Corpuscular Volume 91 fL 80-97 Mean Corpuscular Hemoglobin 30 pg 27-31 Mean Corpuscular HGB Conc 33 g/dL 31-36 Red Cell Distribution Width 15 % 10.5-15 Platelet Count 252 10^3/uL 150-450 Mean Platelet Volume 8 um3 7.4-10.4 Abs Neutrophils 8.1 10^3/uL High 1.5-7.7 Abs Lymphocytes 3.4 10^3/uL 1.0-4.8 Abs Monocytes 0.6 10^3/uL 0-0.8 Abs Eosinophils 0.3 10^3/uL 0-0.6 Abs Basophils 0.1 10^3/uL 0-0.2 Abs Nucleated RBC 0 10^3/uL Granulocyte % 64.8 % 38-83 Lymphocyte % 26.8 % 25-47 Monocyte % 5.0 % 1-9 Eosinophil % 2.2 % 0-6 Basophil % 1.2 % 0-2 Nucleated Red Blood Cells % 0 Laboratory test finding 02/17/2017 Surgical Pathology SEE RESULT BELOW 14, 15 Lipid Profile 01/24/2017 Triglycerides 49 mg/dL 16 (Trig/Chol/HDL) Cholesterol 186 mg/dL 17 HDL Cholesterol 85.7 mg/dL 18 LDL Cholesterol 91 mg/dL 19 Comp Metabolic Panel 01/24/2017 Sodium 138 mmol/L 133-145 Potassium 4.4 mmol/L 3.5-5.0 Chloride 109 mmol/L 101-111 Co2 Carbon Dioxide 23 mmol/L 22-32 Anion Gap 6 mmol/L 2-11 Glucose 84 mg/dL 70-100 Blood Urea Nitrogen 12 mg/dL 6-24 Creatinine 0.79 mg/dL 0.51-0.95 BUN/Creatinine Ratio 15.2 8-20 Calcium 9.2 mg/dL 8.6-10.3 Total Protein 6.9 g/dL 6.4-8.9 Albumin 4.1 g/dL 3.2-5.2 Globulin 2.8 g/dL 2-4 Albumin/Globulin Ratio 1.5 1-3 Total Bilirubin 0.50 mg/dL 0.2-1.0 Alkaline Phosphatase 73 U/L 34-104 Alt 7 U/L 7-52 Ast 15 U/L 13-39 Egfr Non- 80.6 >60 Egfr 103.7 >60 20 CBC Auto Diff 01/24/2017 White Blood Count 7.5 10^3/uL 3.5-10.8 Red Blood Count 4.92 10^6/uL 4.0-5.4 Hemoglobin 14.1 g/dL 12.0-16.0 Hematocrit 43 % 35-47 Mean Corpuscular Volume 87 fL 80-97 Mean Corpuscular Hemoglobin 29 pg 27-31 Mean Corpuscular HGB Conc 33 g/dL 31-36 Red Cell Distribution Width 18 % High 10.5-15 Platelet Count 342 10^3/uL 150-450 Mean Platelet Volume 8 um3 7.4-10.4 Abs Neutrophils 4.3 10^3/uL 1.5-7.7 Abs Lymphocytes 2.3 10^3/uL 1.0-4.8 Abs Monocytes 0.4 10^3/uL 0-0.8 Abs Eosinophils 0.4 10^3/uL 0-0.6 Abs Basophils 0.1 10^3/uL 0-0.2 Abs Nucleated RBC 0 10^3/uL Granulocyte % 57.6 % 38-83 Lymphocyte % 30.4 % 25-47 Monocyte % 5.5 % 1-9 Eosinophil % 4.8 % 0-6 Basophil % 1.7 % 0-2 Nucleated Red Blood Cells % 0.1 Laboratory test finding 01/24/2017 TSH (Thyroid Stim Horm) 0.77 mcIU/mL 0.34-5.60 Ferritin 20.4 ng/mL 11-307 Laboratory test finding 07/14/2016 Clotest SEE RESULT BELOW 21 Laboratory test finding 01/30/2016 Amylase 21 U/L Low 29-103 Lipase 10 U/L Low 11.0-82.0 Comp Metabolic Panel 01/30/2016 Sodium 137 mmol/L 133-145 Potassium 4.4 mmol/L 3.5-5.0 Chloride 107 mmol/L 101-111 Co2 Carbon Dioxide 24 mmol/L 22-32 Anion Gap 6 mmol/L 2-11 Glucose 92 mg/dL 70-100 Blood Urea Nitrogen 11 mg/dL 6-24 Creatinine 0.61 mg/dL 0.51-0.95 BUN/Creatinine Ratio 18.0 8-20 Calcium 9.6 mg/dL 8.6-10.3 Total Protein 6.7 g/dL 6.4-8.9 Albumin 4.1 g/dL 3.2-5.2 Globulin 2.6 g/dL 2-4 Albumin/Globulin Ratio 1.6 1-3 Total Bilirubin 0.30 mg/dL 0.2-1.0 Alkaline Phosphatase 87 U/L 34-104 Alt 8 U/L 7-52 Ast 13 U/L 13-39 Egfr Non- 109.2 >60 Egfr 140.4 >60 22 Comp Metabolic Panel 10/21/2015 Sodium 134 mmol/L 133-145 Potassium 3.9 mmol/L 3.5-5.0 Chloride 105 mmol/L 101-111 Co2 Carbon Dioxide 20 mmol/L Low 22-32 Anion Gap 9 mmol/L 2-11 Glucose 95 mg/dL 70-100 Blood Urea Nitrogen 9 mg/dL 6-24 Creatinine 0.56 mg/dL 0.51-0.95 BUN/Creatinine Ratio 16.1 8-20 Calcium 8.6 mg/dL 8.6-10.3 Total Protein 6.1 g/dL Low 6.4-8.9 Albumin 3.1 g/dL Low 3.2-5.2 Globulin 3.0 g/dL 2-4 Albumin/Globulin Ratio 1.0 1-3 Total Bilirubin 0.30 mg/dL 0.2-1.0 Alkaline Phosphatase 104 U/L 34-104 Alt 15 U/L 7-52 Ast 16 U/L 13-39 Egfr Non- 121.2 >60 Egfr 155.8 >60 23 Laboratory test finding 10/21/2015 Amylase 31 U/L 29-103 Lipase 19 U/L 11.0-82.0 CBC Auto Diff 10/21/2015 White Blood Count 15.9 10^3/uL High 3.5-10.8 Red Blood Count 3.48 10^6/uL Low 4.0-5.4 Hemoglobin 10.8 g/dL Low 12.0-16.0 Hematocrit 32 % Low 35-47 Mean Corpuscular Volume 92 fL 80-97 Mean Corpuscular Hemoglobin 31 pg 27-31 Mean Corpuscular HGB Conc 34 g/dL 31-36 Red Cell Distribution Width 14 % 10.5-15 Platelet Count 280 10^3/uL 150-450 Mean Platelet Volume 10 um3 7.4-10.4 Abs Neutrophils 12.5 10^3/uL High 1.5-7.7 Abs Lymphocytes 2.4 10^3/uL 1.0-4.8 Abs Monocytes 0.8 10^3/uL 0-0.8 Abs Eosinophils 0.1 10^3/uL 0-0.6 Abs Basophils 0.1 10^3/uL 0-0.2 Abs Nucleated RBC 0.01 10^3/uL Granulocyte % 78.3 % 38-83 Lymphocyte % 15.2 % Low 25-47 Monocyte % 5.2 % 1-9 Eosinophil % 0.8 % 0-6 Basophil % 0.5 % 0-2 Nucleated Red Blood Cells % 0 Urinalysis Profile 10/21/2015 Urine Color Yellow Urine Appearance Clear Urine Specific [place] 1.013 1.010-1.030 Urine pH 6.0 5-9 Urine Urobilinogen Negative Negative Urine Ketones Negative Negative Urine Protein Negative Negative Urine Leukocytes Negative Negative Urine Blood Negative Negative Urine Nitrite Negative Negative Urine Bilirubin Negative Negative Urine Glucose Negative Negative Urinalysis Profile 10/13/2015 Urine Color Yellow Urine Appearance Clear Urine Specific [place] 1.011 1.010-1.030 Urine pH 6.0 5-9 Urine Urobilinogen Negative Negative Urine Ketones Negative Negative Urine Protein Negative Negative Urine Leukocytes Negative Negative Urine Blood Negative Negative Urine Nitrite Negative Negative Urine Bilirubin Negative Negative Urine Glucose Negative Negative Urinalysis Profile 09/24/2015 Urine Color Yellow Urine Appearance Cloudy Urine Specific [place] 1.016 1.010-1.030 Urine pH 6.0 5-9 Urine Urobilinogen Negative Negative Urine Ketones Negative Negative Urine Protein Negative Negative Urine Leukocytes Negative Negative Urine Blood Negative Negative Urine Nitrite Negative Negative Urine Bilirubin Negative Negative Urine Glucose Negative Negative Urine Drug SCR ED 09/24/2015 Amphetamine Ur Screen None Detected None Detect & [facility] Barbiturates Urine Screen None Detected None Detect Benzodiazepine Urine Screen None Detected None Detect Urine Cannabinoids Screen None Detected None Detect Urine Cocaine Screen None Detected None Detect Urine Opiates Screen None Detected None Detect Urine Phencyclidine Screen None Detected None Detect 24 CBC Auto Diff 09/24/2015 White Blood Count 14.5 10^3/uL High 3.5-10.8 Red Blood Count 3.47 10^6/uL Low 4.0-5.4 Hemoglobin 10.4 g/dL Low 12.0-16.0 Hematocrit 32 % Low 35-47 Mean Corpuscular Volume 91 fL 80-97 Mean Corpuscular Hemoglobin 30 pg 27-31 Mean Corpuscular HGB Conc 33 g/dL 31-36 Red Cell Distribution Width 14 % 10.5-15 Platelet Count 274 10^3/uL 150-450 Mean Platelet Volume 10 um3 7.4-10.4 Abs Neutrophils 11.8 10^3/uL High 1.5-7.7 Abs Lymphocytes 1.9 10^3/uL 1.0-4.8 Abs Monocytes 0.5 10^3/uL 0-0.8 Abs Eosinophils 0.1 10^3/uL 0-0.6 Abs Basophils 0.1 10^3/uL 0-0.2 Abs Nucleated RBC 0.01 10^3/uL Granulocyte % 81.4 % 38-83 Lymphocyte % 13.5 % Low 25-47 Monocyte % 3.7 % 1-9 Eosinophil % 0.5 % 0-6 Basophil % 0.9 % 0-2 Nucleated Red Blood Cells % 0.1 Laboratory test finding 04/21/2015 Lipase 18 U/L 11.0-82.0 Comp Metabolic Panel 04/21/2015 Sodium 134 mmol/L 133-145 Potassium 3.8 mmol/L 3.5-5.0 Chloride 102 mmol/L 101-111 Co2 Carbon Dioxide 24 mmol/L 22-32 Anion Gap 8 mmol/L 2-11 Glucose 101 mg/dL High 70-100 Blood Urea Nitrogen 9 mg/dL 6-24 Creatinine 0.55 mg/dL 0.51-0.95 BUN/Creatinine Ratio 16.4 8-20 Calcium 9.0 mg/dL 8.6-10.3 Total Protein 6.4 g/dL 6.4-8.9 Albumin 4.0 g/dL 3.2-5.2 Globulin 2.4 g/dL 2-4 Albumin/Globulin Ratio 1.7 1-3 Total Bilirubin 0.30 mg/dL 0.2-1.0 Alkaline Phosphatase 55 U/L 34-104 Alt 7 U/L 7-52 Ast 12 U/L Low 13-39 Egfr Non- 123.7 >60 Egfr 159.1 >60 25 CBC Auto Diff 04/21/2015 White Blood Count 14.3 10^3/uL High 3.5-10.8 Red Blood Count 4.23 10^6/uL 4.0-5.4 Hemoglobin 12.5 g/dL 12.0-16.0 Hematocrit 39 % 35-47 Mean Corpuscular Volume 93 fL 80-97 Mean Corpuscular Hemoglobin 30 pg 27-31 Mean Corpuscular HGB Conc 32 g/dL 31-36 Red Cell Distribution Width 15 % 10.5-15 Platelet Count 348 10^3/uL 150-450 Mean Platelet Volume 8 um3 7.4-10.4 Abs Neutrophils 11.3 10^3/uL High 1.5-7.7 Abs Lymphocytes 1.7 10^3/uL 1.0-4.8 Abs Monocytes 1.1 10^3/uL High 0-0.8 Abs Eosinophils 0.1 10^3/uL 0-0.6 Abs Basophils 0.1 10^3/uL 0-0.2 Abs Nucleated RBC 0.01 10^3/uL Granulocyte % 79.1 % 38-83 Lymphocyte % 12.0 % Low 25-47 Monocyte % 7.6 % 1-9 Eosinophil % 0.7 % 0-6 Basophil % 0.6 % 0-2 Nucleated Red Blood Cells % 0 Laboratory test finding 04/18/2015 HCG 568496.00 mIU/mL 26 Type & Screen 04/18/2015 Patient Blood Type A Positive Antibody Screen NEGATIVE Comp Metabolic Panel 04/18/2015 Sodium 133 mmol/L 133-145 Potassium 3.4 mmol/L Low 3.5-5.0 Chloride 103 mmol/L 101-111 Co2 Carbon Dioxide 22 mmol/L 22-32 Anion Gap 8 mmol/L 2-11 Glucose 108 mg/dL High 70-100 Blood Urea Nitrogen 6 mg/dL 6-24 Creatinine 0.56 mg/dL 0.51-0.95 BUN/Creatinine Ratio 10.7 8-20 Calcium 8.3 mg/dL Low 8.6-10.3 Total Protein 6.5 g/dL 6.4-8.9 Albumin 4.2 g/dL 3.2-5.2 Globulin 2.3 g/dL 2-4 Albumin/Globulin Ratio 1.8 1-3 Total Bilirubin 0.30 mg/dL 0.2-1.0 Alkaline Phosphatase 63 U/L 34-104 Alt 8 U/L 7-52 Ast 14 U/L 13-39 Egfr Non- 121.2 >60 Egfr 155.8 >60 27 CBC Auto Diff 04/18/2015 White Blood Count 16.9 10^3/uL High 3.5-10.8 Red Blood Count 3.86 10^6/uL Low 4.0-5.4 Hemoglobin 11.7 g/dL Low 12.0-16.0 Hematocrit 36 % 35-47 Mean Corpuscular Volume 92 fL 80-97 Mean Corpuscular Hemoglobin 30 pg 27-31 Mean Corpuscular HGB Conc 33 g/dL 31-36 Red Cell Distribution Width 15 % 10.5-15 Platelet Count 341 10^3/uL 150-450 Mean Platelet Volume 8 um3 7.4-10.4 Abs Neutrophils 13.1 10^3/uL High 1.5-7.7 Abs Lymphocytes 2.7 10^3/uL 1.0-4.8 Abs Monocytes 1.0 10^3/uL High 0-0.8 Abs Eosinophils 0 10^3/uL 0-0.6 Abs Basophils 0.1 10^3/uL 0-0.2 Abs Nucleated RBC 0.01 10^3/uL Granulocyte % 77.5 % 38-83 Lymphocyte % 15.9 % Low 25-47 Monocyte % 5.8 % 1-9 Eosinophil % 0.3 % 0-6 Basophil % 0.5 % 0-2 Nucleated Red Blood Cells % 0 Laboratory test finding 04/03/2015 Test Urine positive Drug Abuse 20 Urine 01/09/2015 Urine Amphetamine Negative ng/mL 28 Urine Barbiturates Negative ng/mL 29 Urine Benzodiazepines Presumptive Posi <SEE NOTE> ng/mL 30 Urine Cocaine Negative ng/mL 31 Urine Methadone Negative ng/mL 32 Urine Opiates Negative ng/mL 33 Urine Phencyclidine Negative ng/mL Cutoff: 25 Urine Tetrahydrocannabinol Presumptive Posi <SEE NOTE> ng/mL Cutoff: 20 34 Urine Oxycodone Negative ng/mL 35 Benzodiazepine Confirm Urine 01/09/2015 Urine Lorazepam GC/MS Negative ng/ mL 36 Urine Nordiazepam GC/MS Negative ng/mL 37 Urine Oxazepam GC/MS Negative ng/mL 38 Urine Temazepam GC/MS Negative ng/mL 39 Ur Oh Ethyl Flurazepam GC/MS Negative ng/mL 40 Ur 7 NH Clonazepam GC/MS Negative ng/mL 41 Ur 7 NH Flunitrazepam GC/MS Negative ng/mL Cutoff: 50 Ur Alpha Oh Alprazolam GC/MS 360 ng/mL 42 Ur Alpha Oh Triazolam GC/MS Negative ng/mL 43 Ur Benzodiazepine Interp Positive. 44 THC Confirmation Urine 01/09/2015 Urine Carboxy THC Confirm 43 ng/mL 45 Urine THC Interpretation Positive. 46 Comp Metabolic Panel 01/09/2015 Sodium 140 mmol/L 133-145 Potassium 3.8 mmol/L 3.5-5.0 Chloride 105 mmol/L 101-111 Co2 Carbon Dioxide 29 mmol/L 22-32 Anion Gap 6 mmol/L 2-11 Glucose 91 mg/dL 70-100 Blood Urea Nitrogen 7 mg/dL 6-24 Creatinine 0.65 mg/dL 0.51-0.95 BUN/Creatinine Ratio 10.8 8-20 Calcium 9.2 mg/dL 8.6-10.3 Total Protein 6.5 g/dL 6.4-8.9 Albumin 4.0 g/dL 3.2-5.2 Globulin 2.5 g/dL 2-4 Albumin/Globulin Ratio 1.6 1-3 Total Bilirubin 0.30 mg/dL 0.2-1.0 Alkaline Phosphatase 88 U/L 34-104 Alt 9 U/L 7-52 Ast 14 U/L 13-39 Egfr Non- 102.0 >60 Egfr 131.2 >60 47 Laboratory test finding 01/09/2015 Amylase 35 U/L 29-103 Lipase 28 U/L 11.0-82.0 Drug Abuse 20 Urine 10/23/2014 Urine Amphetamine Negative ng/mL 48 Urine Barbiturates Negative ng/mL 49 Urine Benzodiazepines Negative ng/mL 50 Urine Cocaine Negative ng/mL 51 Urine Methadone Negative ng/mL 52 Urine Opiates Negative ng/mL 53 Urine Phencyclidine Negative ng/mL Cutoff: 25 Urine Tetrahydrocannabinol Negative ng/mL Cutoff: 20 54 Urine Oxycodone Negative ng/mL 55 CBC Auto Diff 10/23/2014 White Blood Count 6.4 10^3/uL 4.8-10.8 Red Blood Count 4.67 10^6/uL 4.0-5.4 Hemoglobin 13.6 g/dL 12.0-16.0 Hematocrit 43 % 35-47 Mean Corpuscular Volume 92 fL 80-97 Mean Corpuscular Hemoglobin 29 pg 27-31 Mean Corpuscular HGB Conc 32 g/dL 31-36 Red Cell Distribution Width 14 % 10.5-15 Platelet Count 275 10^3/uL 150-450 Mean Platelet Volume 8 um3 7.4-10.4 Abs Neutrophils 3.9 10^3/uL 1.5-7.7 Abs Lymphocytes 1.9 10^3/uL 1.0-4.8 Abs Monocytes 0.4 10^3/uL 0-0.8 Abs Eosinophils 0.1 10^3/uL 0-0.6 Abs Basophils 0.1 10^3/uL 0-0.2 Abs Nucleated RBC 0.01 10^3/uL Granulocyte % 60.8 % 38-83 Lymphocyte % 29.8 % 25-47 Monocyte % 6.3 % 1-9 Eosinophil % 2.0 % 0-6 Basophil % 1.1 % 0-2 Nucleated Red Blood Cells % 0.1 Liver Function Panel 10/23/2014 Total Protein 6.1 g/dL Low 6.4-8.9 Albumin 3.9 g/dL 3.2-5.2 Globulin 2.2 g/dL 2-4 Albumin/Globulin Ratio 1.8 1-3 Total Bilirubin 0.30 mg/dL 0.2-1.0 Direct Bilirubin 0.10 mg/dL 0.03-0.18 Indirect Bilirubin 0.2 mg/dL Low 0.3-1.0 Alkaline Phosphatase 115 U/L High 34-104 Alt 15 U/L 7-52 Ast 24 U/L 13-39 Laboratory test finding 10/23/2014 Amylase 22 U/L Low 29-103 Lipase 30 U/L 11.0-82.0 C Reactive Protein < 1.00 mg/L < 5.00 56 Laboratory test finding 10/04/2014 Lipase 127 U/L High 11.0-82.0 Pathologist Review (SEE NOTE) 57 Comp Metabolic Panel 10/04/2014 Sodium 137 mmol/L 133-145 Potassium 4.6 mmol/L 3.5-5.0 Chloride 103 mmol/L 101-111 Co2 Carbon Dioxide 29 mmol/L 22-32 Anion Gap 5 mmol/L 2-11 Glucose 85 mg/dL 70-100 Blood Urea Nitrogen 6 mg/dL 6-24 Creatinine 0.74 mg/dL 0.51-0.95 BUN/Creatinine Ratio 8.1 8-20 Calcium 9.1 mg/dL 8.6-10.3 Total Protein 5.5 g/dL Low 6.4-8.9 Albumin 3.3 g/dL 3.2-5.2 Globulin 2.2 g/dL 2-4 Albumin/Globulin Ratio 1.5 1-3 Total Bilirubin 0.20 mg/dL 0.2-1.0 Alkaline Phosphatase 124 U/L High 34-104 Alt 18 U/L 7-52 Ast 37 U/L 13-39 Egfr Non- 88.3 >60 Egfr 113.6 >60 58 CBC Auto Diff 10/04/2014 White Blood Count 11.8 10^3/uL High 4.8-10.8 Red Blood Count 3.57 10^6/uL Low 4.0-5.4 Hemoglobin 10.6 g/dL Low 12.0-16.0 Hematocrit 33 % Low 35-47 Mean Corpuscular Volume 93 fL 80-97 Mean Corpuscular Hemoglobin 30 pg 27-31 Mean Corpuscular HGB Conc 32 g/dL 31-36 Red Cell Distribution Width 13 % 10.5-15 Platelet Count 1021 10^3/uL High 150-450 Mean Platelet Volume 7 um3 Low 7.4-10.4 Abs Neutrophils 7.1 10^3/uL 1.5-7.7 Abs Lymphocytes 3.1 10^3/uL 1.0-4.8 Abs Monocytes 0.9 10^3/uL High 0-0.8 Abs Eosinophils 0.6 10^3/uL 0-0.6 Abs Basophils 0.2 10^3/uL 0-0.2 Abs Nucleated RBC 0 10^3/uL Granulocyte % 59.6 % 38-83 Lymphocyte % 26.6 % 25-47 Monocyte % 7.5 % 1-9 Eosinophil % 4.8 % 0-6 Basophil % 1.5 % 0-2 Nucleated Red Blood Cells % 0 Comp Metabolic Panel 09/30/2014 Sodium 134 mmol/L 133-145 Potassium 4.5 mmol/L 3.5-5.0 Chloride 98 mmol/L Low 101-111 Co2 Carbon Dioxide 26 mmol/L 22-32 Anion Gap 10 mmol/L 2-11 Glucose 97 mg/dL 70-100 Blood Urea Nitrogen 8 mg/dL 6-24 Creatinine 0.61 mg/dL 0.51-0.95 BUN/Creatinine Ratio 13.1 8-20 Calcium 9.7 mg/dL 8.6-10.3 Total Protein 7.5 g/dL 6.4-8.9 Albumin 4.2 g/dL 3.2-5.2 Globulin 3.3 g/dL 2-4 Albumin/Globulin Ratio 1.3 1-3 Total Bilirubin 0.40 mg/dL 0.2-1.0 Alkaline Phosphatase 150 U/L High 34-104 Alt 16 U/L 7-52 Ast 23 U/L 13-39 Egfr Non- 110.4 >60 Egfr 141.9 >60 59 Laboratory test finding 09/30/2014 Lipase 158 U/L High 11.0-82.0 CBC Auto Diff 09/30/2014 White Blood Count 16.5 10^3/uL High 4.8-10.8 Red Blood Count 3.93 10^6/uL Low 4.0-5.4 Hemoglobin 11.6 g/dL Low 12.0-16.0 Hematocrit 36 % 35-47 Mean Corpuscular Volume 91 fL 80-97 Mean Corpuscular Hemoglobin 30 pg 27-31 Mean Corpuscular HGB Conc 32 g/dL 31-36 Red Cell Distribution Width 13 % 10.5-15 Platelet Count 840 10^3/uL High 150-450 Mean Platelet Volume 8 um3 7.4-10.4 Abs Neutrophils 14.5 10^3/uL High 1.5-7.7 Abs Lymphocytes 1.5 10^3/uL 1.0-4.8 Abs Monocytes 0.5 10^3/uL 0-0.8 Abs Eosinophils 0 10^3/uL 0-0.6 Abs Basophils 0.1 10^3/uL 0-0.2 Abs Nucleated RBC 0.01 10^3/uL Granulocyte % 87.7 % High 38-83 Lymphocyte % 8.8 % Low 25-47 Monocyte % 2.8 % 1-9 Eosinophil % 0.1 % 0-6 Basophil % 0.6 % 0-2 Nucleated Red Blood Cells % 0.1 Arterial Blood Gas 09/19/2014 PH Arterial 7.29 Low 7.35-7.45 Pco2 Arterial 45 mmHg 35-45 Po2 Arterial 77 mmHg Low 80-100 O2 Saturation Arterial 95.3 % 95-98 Base Excess Arterial -5.1 Low -2.0-2.0 60 Hco3 Arterial 20.8 mmol/L 19-31 Laboratory test finding 09/19/2014 Serum Negative Negative Hepatitis Acute Panel 09/19/2014 Hepatitis B Surface Nonreactive Nonreactive Antigen Hepatitis B Core IgM Nonreactive Nonreactive Hepatitis A AB IgM Nonreactive Nonreactive Hepatitis C Antibody Nonreactive Nonreactive Urinalysis Profile 09/18/2014 Urine Color [place] Urine Appearance Cloudy Urine Specific [place] 1.045 High 1.010-1.030 Urine pH 5.0 5-9 Urine Urobilinogen Negative Negative Urine Ketones Negative Negative Urine Protein 2+(100 mg/dL) Negative Urine Leukocytes Negative Negative Urine Blood 1+ Negative * * Negative 61 Urine Nitrite Positive Negative Urine Bilirubin 1+ Negative Urine Glucose Negative Negative Urine White Blood Cell 1+(6-10/hpf) Absent Urine Red Blood Cell 2+(6-10/hpf) Absent Urine Bacteria 3+ Absent Urine Squamous Epithelial Cell Present Absent Urine Hyaline Casts Present Absent Urine Calcium Oxalate Cryst Present Absent CBC Auto Diff 09/18/2014 White Blood Count 18.2 10^3/uL High 4.8-10.8 Red Blood Count 5.12 10^6/uL 4.0-5.4 Hemoglobin 15.5 g/dL 12.0-16.0 Hematocrit 47 % 35-47 Mean Corpuscular Volume 91 fL 80-97 Mean Corpuscular Hemoglobin 30 pg 27-31 Mean Corpuscular HGB Conc 33 g/dL 31-36 Red Cell Distribution Width 13 % 10.5-15 Platelet Count 275 10^3/uL 150-450 Mean Platelet Volume 8 um3 7.4-10.4 Abs Neutrophils 15.3 10^3/uL High 1.5-7.7 Abs Lymphocytes 1.8 10^3/uL 1.0-4.8 Abs Monocytes 0.9 10^3/uL High 0-0.8 Abs Eosinophils 0 10^3/uL 0-0.6 Abs Basophils 0.1 10^3/uL 0-0.2 Abs Nucleated RBC 0.01 10^3/uL Granulocyte % 84.3 % High 38-83 Lymphocyte % 10.0 % Low 25-47 Monocyte % 5.1 % 1-9 Eosinophil % 0.1 % 0-6 Basophil % 0.5 % 0-2 Nucleated Red Blood Cells % 0 Laboratory test finding 09/18/2014 Lactic Acid 1.3 mmol/L 0.5-2.2 Comp Metabolic Panel 09/18/2014 Sodium 134 mmol/L 133-145 Potassium 4.0 mmol/L 3.5-5.0 Chloride 103 mmol/L 101-111 Co2 Carbon Dioxide 22 mmol/L 22-32 Anion Gap 9 mmol/L 2-11 Glucose 130 mg/dL High 70-100 Blood Urea Nitrogen 9 mg/dL 6-24 Creatinine 0.71 mg/dL 0.51-0.95 BUN/Creatinine Ratio 12.7 8-20 Calcium 9.8 mg/dL 8.6-10.3 Total Protein 6.3 g/dL Low 6.4-8.9 Albumin 3.8 g/dL 3.2-5.2 Globulin 2.5 g/dL 2-4 Albumin/Globulin Ratio 1.5 1-3 Total Bilirubin 0.70 mg/dL 0.2-1.0 Alkaline Phosphatase 253 U/L High 34-104 Alt 75 U/L High 7-52 Ast 96 U/L High 13-39 Egfr Non- 92.6 >60 Egfr 119.1 >60 62 Laboratory test finding 09/18/2014 C Reactive Protein 13.82 mg/L High &lt ; 5.00 63 Lipase 1169 U/L High 11.0-82.0 Urine Culture And Sensitivities SEE RESULT BELOW 64 Laboratory test finding 09/18/2014 Lipase 446 U/L High 11.0-82.0 Amylase 108 U/L High 29-103 Liver Function Panel 09/18/2014 Total Protein 7.3 g/dL 6.4-8.9 Albumin 4.9 g/dL 3.2-5.2 Globulin 2.4 g/dL 2-4 Albumin/Globulin Ratio 2.0 1-3 Total Bilirubin 0.50 mg/dL 0.2-1.0 Direct Bilirubin 0.10 mg/dL 0.03-0.18 Indirect Bilirubin 0.4 mg/dL 0.3-1.0 Alkaline Phosphatase 315 U/L High 34-104 Alt 124 U/L High 7-52 Ast 323 U/L High 13-39 Laboratory test finding 09/18/2014 Alcohol 48 mg/dL High <10 Acetaminophen 18 g/mL 65 Erythrocyte Sed Rate 7 mm/Hr 0-14 Urine Culture And Sensitivities 07/16/2014 Urine Culture (SEE NOTE) 66 Ua Routine 07/16/2014 Ua Specific [place] 1.005 Ua PH 5 Ua Color yellow Ua Appera clear Ua WBC trace Ua Protein neg Ua Glucose neg Ua Ketones neg Ua Bilirubin neg Ua Urobilinogen normal Ua Nitrite neg Ua Occult Blood trace Laboratory test finding 04/20/2014 Amylase 43 U/L 29-103 Lipase 49 U/L 11.0-82.0 Alcohol 175 mg/dL High <10 C Reactive Protein 7.26 mg/L High < 5.00 67 Comp Metabolic Panel 04/20/2014 Sodium 134 mmol/L 133-145 Potassium TNP mmol/L 3.5-5.0 Chloride 101 mmol/L 101-111 Co2 Carbon Dioxide 23 mmol/L 22-32 Anion Gap TNP mmol/L 2-11 Glucose 78 mg/dL 70-100 Blood Urea Nitrogen 13 mg/dL 6-24 Creatinine 0.77 mg/dL 0.51-0.95 BUN/Creatinine Ratio 16.9 8-20 Calcium 9.6 mg/dL 8.6-10.3 Total Protein 7.8 g/dL 6.4-8.9 Albumin 4.7 g/dL 3.2-5.2 Globulin 3.1 g/dL 2-4 Albumin/Globulin Ratio 1.5 1-3 Total Bilirubin 0.30 mg/dL 0.2-1.0 Alkaline Phosphatase 79 U/L 34-104 Alt 27 U/L 7-52 Ast TNP U/L 13-39 Egfr Non- 84.4 >60 Egfr 108.5 >60 68 CBC Auto Diff 04/20/2014 White Blood Count 11.2 10^3/uL High 4.8-10.8 Red Blood Count 4.63 10^6/uL 4.0-5.4 Hemoglobin 13.7 g/dL 12.0-16.0 Hematocrit 41 % 35-47 Mean Corpuscular Volume 88 fL 80-97 Mean Corpuscular Hemoglobin 30 pg 27-31 Mean Corpuscular HGB Conc 34 g/dL 31-36 Red Cell Distribution Width 14 % 10.5-15 Platelet Count 430 10^3/uL 150-450 Mean Platelet Volume 7 um3 Low 7.4-10.4 Abs Neutrophils 6.7 10^3/uL 1.5-7.7 Abs Lymphocytes 3.7 10^3/uL 1.0-4.8 Abs Monocytes 0.6 10^3/uL 0-0.8 Abs Eosinophils 0.1 10^3/uL 0-0.6 Abs Basophils 0.1 10^3/uL 0-0.2 Abs Nucleated RBC 0 10^3/uL Granulocyte % 59.9 % 38-83 Lymphocyte % 33.1 % 25-47 Monocyte % 4.9 % 1-9 Eosinophil % 1.3 % 0-6 Basophil % 0.8 % 0-2 Nucleated Red Blood Cells % 0 Urine Culture And Sensitivities 04/20/2014 Urine Culture (SEE NOTE) 69 Laboratory test finding 04/20/2014 Urine Negative Negative 70 Urinalysis Profile 04/20/2014 Urine Color Yellow Urine Appearance Cloudy Urine Specific [place] 1.009 Low 1.010-1.030 Urine pH 5.0 5-9 Urine Urobilinogen Negative Negative Urine Ketones Negative Negative Urine Protein Negative Negative Urine Leukocytes Trace Negative Urine Blood 1+ Negative Urine Nitrite Positive Negative Urine Bilirubin Negative Negative Urine Glucose Negative Negative Urine White Blood Cell 1+(6-10/hpf) Absent Urine Red Blood Cell Trace(0-2/hpf) Absent Urine Bacteria Absent Absent Urine Squamous Epithelial Cell Present Absent Urine Drug SCR ED 04/20/2014 Amphetamine Ur Screen None Detected None Detect & Pain [facility] Barbiturates Urine Screen None Detected None Detect Benzodiazepine Urine Screen None Detected None Detect Urine Cannabinoids Screen None Detected None Detect Urine Cocaine Screen None Detected None Detect Urine Opiates Screen None Detected None Detect Urine Phencyclidine Screen None Detected None Detect 71 GC/Chlamydia Amplified Rna 03/15/2014 Chlamydia trachomatis Rna Negative Negative Neisseria gonorrhoeae (GC) Rna Negative Negative 72 Laboratory test finding 03/15/2014 Trichomonas vaginalis Rna Negative Negative 73 Gardnerella/Yeast: Vaginal Dna (SEE NOTE) 74 Laboratory test finding 02/01/2014 Inr 1.55 High 0.85-1.06 Urine Culture And 01/10/2014 Urine Culture (SEE NOTE) 75, 76 Sensitivities Laboratory test finding 01/10/2014 Urine Negative Negative 75 , 77 Urinalysis Profile 01/10/2014 Urine Color Yellow 75 Urine Appearance Cloudy 75 Urine Specific [place] 1.020 1.010-1.030 75 Urine pH 5.0 5-9 75 Urine Urobilinogen Negative Negative 75 Urine Ketones Negative Negative 75 Urine Protein Negative Negative 75 Urine Leukocytes Negative Negative 75 Urine Blood Negative Negative 75 * * Negative 75, 78 Urine Nitrite Positive Negative 75 Urine Bilirubin Negative Negative 75 Urine Glucose Negative Negative 75 Urine White Blood Cell Trace Absent 75 Urine Red Blood Cell Trace Absent 75 Urine Bacteria 1+ Absent 75 Urine Squamous Epithelial Cell Present Absent 75 Type & Screen 01/10/2014 Patient Blood Type A Positive 75 Antibody Screen NEGATIVE 75 Basic Metabolic Panel 01/10/2014 Sodium 134 mmol/L 133-145 75 Potassium 3.9 mmol/L 3.7-5.6 75 Chloride 104 mmol/L 101-111 75 Co2 Carbon Dioxide 22 mmol/L 22-32 75 Anion Gap 8 mmol/L 2-11 75 Glucose 84 mg/dL 70-100 75 Blood Urea Nitrogen 10 mg/dL 6-24 75 Creatinine 0.69 mg/dL 0.51-0.95 75 BUN/Creatinine Ratio 14.5 8-20 75 Calcium 9.0 mg/dL 8.6-10.3 75 Egfr Non- 95.7 >60 75 Egfr 123.1 >60 75, 79 Laboratory test 01/10/2014 Inr 0.97 0.85-1.06 75, 80 finding CBC Auto Diff 01/10/2014 White Blood Count 11.3 10^3/uL High 4.8-10.8 Red Blood Count 4.02 10^6/uL 4.0-5.4 Hemoglobin 12.6 g/dL 12.0-16.0 Hematocrit 38 % 35-47 Mean Corpuscular Volume 94 fL 80-97 Mean Corpuscular Hemoglobin 31 pg 27-31 Mean Corpuscular HGB Conc 33 g/dL 31-36 Red Cell Distribution Width 12 % 10.5-15 Platelet Count 368 10^3/uL 150-450 Mean Platelet Volume 8 um3 7.4-10.4 Abs Neutrophils 8.6 10^3/uL High 1.5-7.7 Abs Lymphocytes 2.2 10^3/uL 1.0-4.8 Abs Monocytes 0.3 10^3/uL 0-0.8 Abs Eosinophils 0 10^3/uL 0-0.6 Abs Basophils 0.1 10^3/uL 0-0.2 Abs Nucleated RBC 0 10^3/uL Granulocyte % 76.1 % 38-83 Lymphocyte % 19.8 % Low 25-47 Monocyte % 3.1 % 1-9 Eosinophil % 0.2 % 0-6 Basophil % 0.8 % 0-2 Nucleated Red Blood Cells % 0 Laboratory test finding 01/08/2014 Activated Partial 27.2 seconds 24.0- 36.1 Thrombo Time CBC Auto Diff 01/08/2014 White Blood Count 11.5 10^3/uL High 4.8-10.8 Red Blood Count 4.09 10^6/uL 4.0-5.4 Hemoglobin 12.9 g/dL 12.0-16.0 Hematocrit 39 % 35-47 Mean Corpuscular Volume 94 fL 80-97 Mean Corpuscular Hemoglobin 32 pg High 27-31 Mean Corpuscular HGB Conc 34 g/dL 31-36 Red Cell Distribution Width 13 % 10.5-15 Platelet Count 383 10^3/uL 150-450 Mean Platelet Volume 8 um3 7.4-10.4 Abs Neutrophils 9.4 10^3/uL High 1.5-7.7 Abs Lymphocytes 1.5 10^3/uL 1.0-4.8 Abs Monocytes 0.4 10^3/uL 0-0.8 Abs Eosinophils 0.1 10^3/uL 0-0.6 Abs Basophils 0.1 10^3/uL 0-0.2 Abs Nucleated RBC 0 10^3/uL Granulocyte % 82.1 % 38-83 Lymphocyte % 13.3 % Low 25-47 Monocyte % 3.4 % 1-9 Eosinophil % 0.7 % 0-6 Basophil % 0.5 % 0-2 Nucleated Red Blood Cells % 0 Comp Metabolic Panel 01/08/2014 Sodium 136 mmol/L 133-145 Potassium 3.9 mmol/L 3.7-5.6 Chloride 105 mmol/L 101-111 Co2 Carbon Dioxide 24 mmol/L 22-32 Anion Gap 7 mmol/L 2-11 Glucose 112 mg/dL High 70-100 Blood Urea Nitrogen 8 mg/dL 6-24 Creatinine 0.58 mg/dL 0.51-0.95 BUN/Creatinine Ratio 13.8 8-20 Calcium 9.3 mg/dL 8.6-10.3 Total Protein 6.7 g/dL 6.4-8.9 Albumin 4.5 g/dL 3.2-5.2 Globulin 2.2 g/dL 2-4 Albumin/Globulin Ratio 2.0 1-3 Total Bilirubin 0.40 mg/dL 0.2-1.0 Alkaline Phosphatase 46 U/L 34-104 Alt 13 U/L 7-52 Ast 19 U/L 13-39 Egfr Non- 117.0 >60 Egfr 150.4 >60 81 Inr/Protime 01/08/2014 Inr 0.91 0.85-1.06 HPV High Risk 11/22/2013 Human Papillomavirus Source See Comment 82 HPV High Risk Type 16, PCR Negative Negative HPV High Risk Type 18, PCR Negative Negative HPV Other Risk types Negative Negative 83 Laboratory test 11/22/2013 Cytology RUN DATE: finding <SEE NOTE> Laboratory test 11/21/2013 TSH (Thyroid 0.95 IU/mL 0.34-5.60 85, 86 finding Stimulating Horm) Comp Metabolic 11/21/2013 Sodium 135 mmol/L 133-145 85 Panel Potassium 4.0 mmol/L 3.7-5.6 85 Chloride 103 mmol/L 101-111 85 Co2 Carbon Dioxide 27 mmol/L 22-32 85 Anion Gap 5 mmol/L 2-11 85 Glucose 91 mg/dL 70-100 85 Blood Urea Nitrogen 8 mg/dL 6-24 85 Creatinine 0.62 mg/dL 0.51-0.95 85 BUN/Creatinine Ratio 12.9 8-20 85 Calcium 8.9 mg/dL 8.6-10.3 85 Total Protein 6.3 g/dL Low 6.4-8.9 85 Albumin 4.1 g/dL 3.2-5.2 85 Globulin 2.2 g/dL 2-4 85 Albumin/Globulin Ratio 1.9 1-3 85 Total Bilirubin 0.30 mg/dL 0.2-1.0 85 Alkaline Phosphatase 84 U/L 34-104 85 Alt 16 U/L 7-52 85 Ast 18 U/L 13-39 85 Egfr Non- 108.3 >60 85 Egfr 139.3 >60 85, 87 Lipid Profile (Trig/Chol/HDL) 11/21/2013 Triglycerides 55 mg/dL 85, 88 Cholesterol 196 mg/dL 85, 89 HDL Cholesterol 116.0 mg/dL 85, 90 LDL Cholesterol 69 mg/dL 85, 91 Laboratory test finding 08/16/2013 Urine Negative Negative 92 Ua Routine 07/16/2013 Ua Specific [place] 1.005 Ua PH 7.5 Ua Color yellow Ua Appera cloudy Ua WBC negative Ua Protein negative Ua Glucose negative Ua Ketones negative Ua Bilirubin negative Ua Urobilinogen normal Ua Nitrite negative Ua Occult Blood trace Laboratory test finding 07/16/2013 Genital Culture (SEE NOTE) 93 Ua Routine 06/15/2013 Ua Specific [place] 1.010 Ua PH 5 Ua Color yellow Ua Appera cloudy Ua WBC sm Ua Protein neg Ua Glucose neg Ua Ketones neg Ua Bilirubin sm Ua Urobilinogen neg Ua Nitrite neg Ua Occult Blood nht Urine Culture And 06/15/2013 Urine Culture (SEE NOTE) 94 Sensitivities Laboratory test finding 05/22/2013 Affirm Vaginal Dna Probe (SEE NOTE) 95 Ua Routine 05/22/2013 Ua Specific [place] 1.005 Ua PH 8.5 Ua Color yellow Ua Appera cloudy Ua WBC neg Ua Protein neg Ua Glucose neg Ua Ketones neg Ua Bilirubin neg Ua Urobilinogen neg Ua Nitrite neg Ua Occult Blood non hemo trace Ua Routine 04/09/2013 Ua Specific [place] 1.010 Ua PH 6.5 Ua Color yellow Ua Appera cloudy Ua WBC negative Ua Protein 30 Ua Glucose negative Ua Ketones large 80 Ua Bilirubin large Ua Urobilinogen negative Ua Nitrite negative Ua Occult Blood nht Laboratory test finding 01/30/2013 Test Urine neg Laboratory test finding 11/10/2012 CSF Glucose 59 mg/dL 50-75 96 CSF Total Protein 21.0 mg/dL 15-45 97 CSF Culture & 11/10/2012 CSF Culture Gram (SEE NOTE) 98 Sensitivity Stain Body Fluid Cell Count 11/10/2012 Body Fluid Source Cerebral Spinal Body Fluid Appearance Clear Body Fluid Color Colorless Body Fluid Volume 1 mL Body Fluid WBC 0 Body Fluid RBC 0 Body Fluid Polys 0 Body Fluid Total Cells Counted 0 Fluid Reviewed By (SEE NOTE) 99 CBC Auto Diff 11/10/2012 White Blood Count 7.2 10^3/uL 4.8-10.8 Red Blood Count 4.57 10^6/uL 4.0-5.4 Hemoglobin 13.5 g/dL 12.0-16.0 Hematocrit 42 % 35-47 Mean Corpuscular Volume 91 fL 80-97 Mean Corpuscular Hemoglobin 30 pg 27-31 Mean Corpuscular HGB Conc 32 g/dL 31-36 Red Cell Distribution Width 14 % 10.5-15 Platelet Count 399 10^3/uL 150-450 Mean Platelet Volume 8 um3 7.4-10.4 Abs Neutrophils 4.4 10^3/uL 1.5-7.7 Abs Lymphocytes 2.3 10^3/uL 1.0-4.8 Abs Monocytes 0.3 10^3/uL 0-0.8 Abs Eosinophils 0 10^3/uL 0-0.6 Abs Basophils 0.1 10^3/uL 0-0.2 Abs Nucleated RBC 0 10^3/uL Granulocyte % 61.5 % 38-83 Lymphocyte % 32.3 % 25-47 Monocyte % 4.6 % 1-9 Eosinophil % 0.5 % 0-6 Basophil % 1.1 % 0-2 Nucleated Red Blood Cells % 0 Laboratory test finding 06/05/2012 Urine Negative Negative 100 Urine Culture And 06/02/2012 Urine Culture (SEE NOTE) 101 Sensitivities Ua Routine 06/02/2012 Ua Specific [place] 1.000 Ua PH 5 Ua Color yellow Ua Appera clear Ua WBC trace Ua Protein negative Ua Glucose negative Ua Ketones negative Ua Bilirubin negative Ua Urobilinogen negative Ua Nitrite positive Ua Occult Blood negative Urine Culture And Sensitivities 04/26/2012 Urine Culture (SEE NOTE) 102 Ua Routine 04/26/2012 Ua Specific [place] 1.025 Ua PH 8 Ua Color yellow Ua Appera cloudy Ua WBC neg Ua Protein neg Ua Glucose neg Ua Ketones neg Ua Bilirubin neg Ua Urobilinogen neg Ua Nitrite neg Ua Occult Blood non hemo trace Vad 12/17/2011 Vad Final Nonreactive Nonreactive 103 Laboratory test 08/24/2011 Cytology 104 finding <SEE NOTE> GC/Chlamydia 08/24/2011 M 105 Aptima <SEE NOTE> Laboratory test 08/07/2011 Stool For Blood POSITIVE Negative finding CBC No Diff 08/06/2011 White Blood 13.0 CUMM High 4.8-10.8 Count Red Cell Count 4.79 CUMM 4.2-5.4 Hemoglobin 14.7 g/dL 12.0-16.0 Hematocrit 44 % 35-47 Mean Corpuscular Volume 92 um3 79-97 Mean Corpuscular Hemoglob 31 pg 27-31 Mean Corpuscular HGB Cone 33 g/dL 32-36 Redcell Distribution WDTH 12 % 10.5-15 Platelet Count 324 CUMM 150-450 Mean Platelet Volume 8.7 um3 7.4-10.4 Comp Metabolic Panel 08/06/2011 Sodium 137 mmol/L 135-145 Potassium 4.4 mmol/L 3.5-5.0 Chloride 101 mmol/L 101-111 Co2 (Carbon Dioxide) 27.0 mmol/L 22-32 Anion Gap 9.0 mmol/L 2-11 106 Glucose 83 mg/dL 70-100 BUN 11 mg/dL 6-24 Creatinine 0.7 mg/dL 0.50-1.40 One Over Creatinine 1.42 BUN/Creatinine Ratio 15.7 8-20 Calcium 8.7 mg/dL 8.1-9.9 Total Protein 6.8 GM/DL 6.2-8.1 Albumin 3.8 GM/DL 3.6-5.4 Globulin 3.0 GM/DL 2-4 Albumin/Globulin Ratio 1.3 1-3 Bilirubin Total 0.5 mg/dL 0.4-1.5 107 Alkaline Phosphatase 105 U/L 30-110 Alt (SGPT) 53 U/L 14-54 Ast (Sgot) 107 U/L High 12-42 eGFR Non- 95.8 > 60 eGFR 123.2 > 60 108 Laboratory test finding 08/06/2011 Amylase 188 U/L High 20-120 109 Lipase 129 U/L High 22-51 C Reactive Protein 3.1 mg/dL High Less Than 0.5 Manual Differential 08/06/2011 Polysegmented Neutrophil 86 % High 38-83 Band Neutrophil 5 % 0-8 Lymphocyte 7 % Low 25-47 Monocyte 1 % 0-13 Eosinophil 1 % 0-6 RBC Morphology NORMAL Urinalysis W/Microscopic 08/06/2011 Ua Color YELLOW Yellow Appearance-Urine CLEAR Clear Specific [place]-Ur 1.017 1.010-1.030 Esterase-Urine NEGATIVE Negative Nitrite NEGATIVE Negative [id number] NEGATIVE Negative Protein-Urine NEGATIVE Negative PH-Urine 7.0 5-9 Blood-Urine TRACE Negative Ketones-Urine 2+ Negative Bilirubin-Ur NEGATIVE Negative Glucose-Urine NEGATIVE Negative WBC-Urine 0-2 0-5 RBC-Urine 5-10 0-2 Epith Cells-Ur MODERATE None Bacteria-Urine 2+ None GC/Chlamydia Aptima 07/01/2011 M <SEE 110 NOTE> (HCG) 05/05/2011 Specific [place] 1.020 1.010-1. Urine 030 Urine NEGATIVE Negative 111 Urine Culture & 04/06/2011 M <SEE 112 Sensitivi NOTE> GC/Chlamydia Aptima 04/06/2011 M <SEE 113 NOTE> Drug Abuse 20 Urine 04/06/2011 Urine Ampetamines SEE BELOW ng/mL () 114 Urine Alcohol Negative mg/dL Cutoff: 30 Urine Barbiturates Negative ng/mL () 115 Urine Opiates Negative ng/mL () 116 Urine Phencyclidine Negative ng/mL Cutoff: 25 117 GC/Chlamydia Aptima 03/04/2011 M 118 <SEE NOTE> Laboratory test 03/04/2011 Wet Prep 119 finding <SEE NOTE> Benzodiazepine 02/09/2011 Benzodiazepine Screen Presumptive Posi () 120 Confirm,Urine <SEE NOTE> Lorazepam By GC/MS Negative ng/mL () 121 Nordiazepam By GC/MS Negative ng/mL () 122 Oxazepam By GC/MS Negative ng/mL () 123 Temazepam By GC/MS Negative ng/mL () 124 Mq-Efgjn-Yhzsqhavqk By GC/MS Negative ng/mL () 125 5-OM-Ddodkqarkh By GC/MS Negative ng/mL () 126 4-JK-Nxvaxilpsnerl By GC/MS Negative ng/mL Cutoff: 50 Alpha Oh-Alprazolam By GC/MS 532 ng/mL () 127 Alpha Oh-Triazolam By GC/MS Negative ng/mL () 128 Benzodiazepines Interpretation Positive. () 129 Drug Abuse 20 Urine 02/09/2011 Urine Ampetamines Negative ng/mL () 130 Urine Barbiturates Negative ng/mL () 131 Urine Benzodiazepines Presumptive Posi <SEE NOTE> ng/mL () 132 Urine Cocaine Negative ng/mL () 133 Urine Methadone Negative ng/mL () 134 Urine Opiates Negative ng/mL () 135 Urine Phencyclidine Negative ng/mL Cutoff: 25 Urine Propoxyphene Negative ng/mL () 136 Urine Tetrahydrocannabinol Negative ng/mL Cutoff: 20 137 Laboratory test finding 12/17/2010 TSH 0.95 MIU/ML 0.34-5.60 Comp Metabolic Panel 12/17/2010 Sodium 139 mmol/L 135-145 Potassium 4.0 mmol/L 3.5-5.0 Chloride 104 mmol/L 101-111 Co2 (Carbon Dioxide) 23.0 mmol/L 22-32 Anion Gap 12.0 mmol/L High 2-11 138 Glucose 74 mg/dL 70-100 BUN 7 mg/dL 6-24 Creatinine 0.8 mg/dL 0.50-1.40 One Over Creatinine 1.25 BUN/Creatinine Ratio 8.8 8-20 Calcium 9.7 mg/dL 8.1-9.9 Total Protein 6.6 GM/DL 6.2-8.1 Albumin 4.4 GM/DL 3.6-5.4 Globulin 2.2 GM/DL 2-4 Albumin/Globulin Ratio 2.0 1-3 Bilirubin Total 0.7 mg/dL 0.4-1.5 139 Alkaline Phosphatase 53 U/L 30-110 Alt (SGPT) 27 U/L 14-54 Ast (Sgot) 26 U/L 12-42 eGFR Non- 82.1 > 60 eGFR 105.6 > 60 140 CBC With Manual Diff 12/17/2010 White Blood Count 10.5 CUMM 4.8-10.8 Red Cell Count 4.59 CUMM 4.2-5.4 Hemoglobin 13.9 g/dL 12.0-16.0 Hematocrit 41 % 35-47 Mean Corpuscular Volume 89 um3 79-97 Mean Corpuscular Hemoglob 30 pg 27-31 Mean Corpuscular HGB Cone 34 g/dL 32-36 Redcell Distribution WDTH 13 % 10.5-15 Platelet Count 277 CUMM 150-450 Mean Platelet Volume 9.4 um3 7.4-10.4 Polysegmented Neutrophil 64 % 38-83 Lymphocyte 31 % 25-47 Monocyte 2 % 0-13 Eosinophil 1 % 0-6 Basophil 2 % 0-2 Absolute Neutrophil Count 6.7 Anisocytosis SLIGHT Poikilocytosis SLIGHT Laboratory test finding 10/21/2010 TSH 0.66 MIU/ML 0.34-5.60 CBC W/Manual Diff 10/21/2010 White Blood Count 9.1 CUMM 4.8-10.8 Red Cell Count 4.03 CUMM Low 4.2-5.4 Hemoglobin 12.2 g/dL 12.0-16.0 Hematocrit 36 % 35-47 Mean Corpuscular Volume 88 um3 79-97 Mean Corpuscular Hemoglob 30 pg 27-31 Mean Corpuscular HGB Cone 34 g/dL 32-36 Redcell Distribution WDTH 14 % 10.5-15 Platelet Count 268 CUMM 150-450 Mean Platelet Volume 9.9 um3 7.4-10.4 Polysegmented Neutrophil 70 % 38-83 Lymphocyte 24 % Low 25-47 Monocyte 4 % 0-13 Eosinophil 2 % 0-6 Absolute Neutrophil Count 6.3 RBC Morphology NORMAL Urine Culture & Sensitivi 09/15/2010 Urine Culture Sensitivi NG 141 1 Anticoagulants (for example oral direct thrombin inhibitors like dabigatran, anti-Xa inhibitors like rivaroxaban, apixaban or edoxaban), heparin levels greater than 1 U/mL, inhibitors of the APTT test system (for example lupus anticoagulant), inhibitors of bovine factor V (for example antibodies that may arise in patients treated with certain bovine topical thrombin preparations) may produce a falsely normal or elevated protein S activity result. Suggest clinical correlation and if indicated consider repeat assay of protein S activity and/or antigen in the absence of anticoagulation therapy. ADDITIONAL INFORMATION This test has been modified from the refrigeration operator's instructions. Its performance characteristics were determined by [facility] in a manner consistent with CLIA requirements. This test has not been cleared or approved by the [place] Food and Drug Administration. Test Performed by: [facility] - [address] [id number] Test Performed by: [facility] - [address] [id number] 3 ADDITIONAL INFORMATION This test has been modified from the refrigeration operator's instructions. Its performance characteristics were determined by [facility] in a manner consistent with CLIA requirements. This test has not been cleared or approved by the [place] Food and Drug Administration. Test Performed by: [facility] - [address] [id number] 4 Test Performed by: [facility] [address] 5 Test Performed by: [facility] [address] 6 REFERENCE VALUE 10.3 - 12.8 7 IMPRESSION: 1) No evidence of a lupus anticoagulant. 2) Borderline prolonged dilute Vignesh viper venom time (DRVVT) screen ratio of doubtful significance. 3) If clinically indicated, for additional antiphospholipid antibody evaluation, consider serologic testing for anticardiolipin and/or anti-beta 2 glycoprotein I antibodies, IgG and IgM isotypes. COMMENTS: Mixing study of the borderline prolonged dilute Vignesh viper venom time (DRVVT screen and mix ratios) demonstrates no evidence of inhibition, and along with the normal DRVVT confirm ratio, provides no evidence of a lupus anticoagulant. The mildly abnormal DRVVT screen ratio is of doubtful significance. Normal activated partial thromboplastin time provides no evidence of a lupus anticoagulant. 8 Test Performed by: [facility] - [address] [address] 9 Note: Decreased protein C activity could reflect acquired conditions (e.g., liver disease, vitamin K deficiency, oral anticoagulation, excess heparin in specimen, etc.) or a congenital deficiency state. Suggest clinical correlation. ADDITIONAL INFORMATION This test has been modified from the refrigeration operator's instructions. Its performance characteristics were determined by [facility] in a manner consistent with CLIA requirements. This test has not been cleared or approved by the U.S. Food and Drug Administration. Test Performed by: [facility] - [facility] [address] [place] [address] 10 Please note the change in INR reference range effective 17. 11 Because ethnic data is not always readily available, this report includes an eGFR for both -Americans and non- Americans. The National Kidney Disease Education Program (NKDEP) does not endorse the use of the MDRD equation for patients that are not between the ages of 18 and 70, are , have extremes of body size, muscle mass, or nutritional status, or are non- or non-. According to the National Kidney Foundation, irrespective of diagnosis, the stage of the disease is based on the level of kidney function: Stage Description GFR(mL/min/1.73 m(2)) 1 Kidney damage with normal or decreased GFR 90 2 Kidney damage with mild decrease in GFR 60-89 3 Moderate decrease in GFR 30-59 4 Severe decrease in GFR 15-29 5 Kidney failure <15 (or dialysis) 12 This individual DOES NOT have the factor V Leiden (R506Q) mutation. Although the factor V Leiden mutation is absent, the individual may have other genetic and environmental risk factors for thrombosis. Consider genetic consultation and counseling of potentially affected family members regarding laboratory testing. ADDITIONAL INFORMATION This test is a direct mutation analysis using PCR amplification, signal generation and release by cleavage of sequence specific alleles ([employer], [employer], [place], [place]). This test has been modified from the refrigeration operator's instructions. Its performance characteristics were determined by [facility] in a manner consistent with CLIA requirements. This test has not been cleared or approved by the U.S. Food and Drug Administration. 13 Test Performed by: [facility] [address] [place] [address] 14 [id number] SEE RESULT BELOW Name: BRENNA DEL ROSARIO : [address]: Araceli De León MD Acct: [id number] Unit: [id number] AGE: 41 Location: [facility] Re02/17/17 SEX: F Status: REG REF SPEC: [id number] YAZMIN: 02/17/17-[address] [facility] [address]: Jun Duckworth MD REQ: [id number] RECD: 02/17/17-9 STATUS: JULIO MONTE DR: Araceli De León MD _ ORDERED: LEVEL 4 COMMENTS: [id number] FINAL DIAGNOSIS Breast, right, 4:00, 6 cm from nipple, core biopsy: -- Fibroadenoma. -- No evidence of invasive or in situ carcinoma. COMMENT: Clinical and radiologic correlation is recommended. CLINICAL HISTORY Probable fibroadenoma; rule out carcinoma PRE-OPERATIVE DIAGNOSIS Right breast mass at 4:00, 6 cm from nipple, 0.9 x 0.6 x 1.1 cm GROSS DESCRIPTION The specimen is received in formalin labeled, Right Breast Core Biopsies, and consists of a 2.0 x 0.6 x 0.2 cm aggregate of muniz-pink to yellow irregular to cylindrical fibrofatty soft tissue fragments which is submitted entirely in one cassette. Signed (signature on file) Shara Zhang MD 04/06 1033 END OF REPORT * ML=Testing performed at Main Lab DEPARTMENT OF PATHOLOGY, [address] [place] [address] Jac Goodwin M.D. Director [facility] # [id number] 16 Desirable: <150 Borderline High: 150-199 High: 200-499 Very High: >500 17 Desirable: <200 Borderline High: 200-239 High: >239 18 Low: <40 Desirable: 40-60 High: >60 19 Desirable: <100 Near Optimal: 100-129 Borderline High: 130-159 High: 160-189 Very High: >189 20 Because ethnic data is not always readily available, this report includes an eGFR for both -Americans and non- Americans. The National Kidney Disease Education Program (NKDEP) does not endorse the use of the MDRD equation for patients that are not between the ages of 18 and 70, are , have extremes of body size, muscle mass, or nutritional status, or are non- or non-. According to the National Kidney Foundation, irrespective of diagnosis, the stage of the disease is based on the level of kidney function: Stage Description GFR(mL/min/1.73 m(2)) 1 Kidney damage with normal or decreased GFR 90 2 Kidney damage with mild decrease in GFR 60-89 3 Moderate decrease in GFR 30-59 4 Severe decrease in GFR 15-29 5 Kidney failure <15 (or dialysis) 21 SEE RESULT BELOW Name: BRENNA DEL ROSARIO : [address]: Jerome Harris MD Acct: [id number] Unit: [id number] AGE: 40 Location: ENDO Re07/14/16 SEX: F Status: DEP REF SPEC: [id number] YAZMIN: 07/14/16-[address]: Jerome Harris MD REQ: [id number] RECD: 07/14/16 STATUS: COMP DIANEHR DR: Cori Kaur TRAVELING SALES REPRESENTATIVE _ SOURCE: GAS ANTRUM SPDESC: ORDERED: Clotest Procedure Result Reported Site Clotest Final 07/15/16- 814 ML Clotest Negative * ML - MAIN LAB ([facility]) . END OF REPORT * ML=Testing performed at Main Lab DEPARTMENT OF PATHOLOGY, [address] [place] [address] Jac Goodwin M.D. Director [facility] # [id number] 22 Because ethnic data is not always readily available, this report includes an eGFR for both -Americans and non- Americans. The National Kidney Disease Education Program (NKDEP) does not endorse the use of the MDRD equation for patients that are not between the ages of 18 and 70, are , have extremes of body size, muscle mass, or nutritional status, or are non- or non-. According to the National Kidney Foundation, irrespective of diagnosis, the stage of the disease is based on the level of kidney function: Stage Description GFR(mL/min/1.73 m(2)) 1 Kidney damage with normal or decreased GFR 90 2 Kidney damage with mild decrease in GFR 60-89 3 Moderate decrease in GFR 30-59 4 Severe decrease in GFR 15-29 5 Kidney failure <15 (or dialysis) 23 Because ethnic data is not always readily available, this report includes an eGFR for both -Americans and non- Americans. The National Kidney Disease Education Program (NKDEP) does not endorse the use of the MDRD equation for patients that are not between the ages of 18 and 70, are , have extremes of body size, muscle mass, or nutritional status, or are non- or non-. According to the National Kidney Foundation, irrespective of diagnosis, the stage of the disease is based on the level of kidney function: Stage Description GFR(mL/min/1.73 m(2)) 1 Kidney damage with normal or decreased GFR 90 2 Kidney damage with mild decrease in GFR 60-89 3 Moderate decrease in GFR 30-59 4 Severe decrease in GFR 15-29 5 Kidney failure <15 (or dialysis) 24 The urine specimen was tested at the listed cutoffs: Drug class test level (ng/mL) Amphetamines 500 Barbiturates 200 Benzodiazepine metabolites 200 Cocaine metabolites 150 Cannabinoids 50 Opiates 300 Pcp 25 Specimen was received without chain of custody. Results should be used for medical purposes only. 25 Because ethnic data is not always readily available, this report includes an eGFR for both -Americans and non- Americans. The National Kidney Disease Education Program (NKDEP) does not endorse the use of the MDRD equation for patients that are not between the ages of 18 and 70, are , have extremes of body size, muscle mass, or nutritional status, or are non- or non-. According to the National Kidney Foundation, irrespective of diagnosis, the stage of the disease is based on the level of kidney function: Stage Description GFR(mL/min/1.73 m(2)) 1 Kidney damage with normal or decreased GFR 90 2 Kidney damage with mild decrease in GFR 60-89 3 Moderate decrease in GFR 30-59 4 Severe decrease in GFR 15-29 5 Kidney failure <15 (or dialysis) 26 <5.0 Negative 5.0 - 25.0 Indeterminate (Repeat testing recommended after 72 hours) >25.0 Positive Perimenopausal women can display HCG levels of up to 20 mIU/mL 27 Because ethnic data is not always readily available, this report includes an eGFR for both -Americans and non- Americans. The National Kidney Disease Education Program (NKDEP) does not endorse the use of the MDRD equation for patients that are not between the ages of 18 and 70, are , have extremes of body size, muscle mass, or nutritional status, or are non- or non-. According to the National Kidney Foundation, irrespective of diagnosis, the stage of the disease is based on the level of kidney function: Stage Description GFR(mL/min/1.73 m(2)) 1 Kidney damage with normal or decreased GFR 90 2 Kidney damage with mild decrease in GFR 60-89 3 Moderate decrease in GFR 30-59 4 Severe decrease in GFR 15-29 5 Kidney failure <15 (or dialysis) 28 REFERENCE VALUE Cutoff: 500 29 REFERENCE VALUE Cutoff: 200 30 Presumptive Positive Drug confirmation to follow. Presumptive Positive means that the screening method is positive, but the test needs to be run by a confirmatory method before being finalized. REFERENCE VALUE Cutoff: 200 31 REFERENCE VALUE Cutoff: 150 32 REFERENCE VALUE Cutoff: 150 33 REFERENCE VALUE Cutoff: 300 34 Presumptive Positive Drug confirmation to follow. Presumptive Positive means that the screening method is positive, but the test needs to be run by a confirmatory method before being finalized. ADDITIONAL INFORMATION This report is intended for use in clinical monitoring or management of patients. It is not intended for use in employment-related testing. 35 REFERENCE VALUE Cutoff: 100 ADDITIONAL INFORMATION This report is intended for use in clinical monitoring or management of patients. It is not intended for use in employment-related testing. Test Performed by: [address] [address] Manager Pediatric: Sujit Sarah II, M.D., Ph.D. 36 REFERENCE VALUE Cutoff: 100 37 REFERENCE VALUE Cutoff: 100 38 REFERENCE VALUE Cutoff: 100 39 REFERENCE VALUE Cutoff: 100 40 REFERENCE VALUE Cutoff: 100 41 REFERENCE VALUE Cutoff: 100 42 REFERENCE VALUE Cutoff: 100 43 REFERENCE VALUE Cutoff: 100 44 ADDITIONAL INFORMATION This report is intended for use in clinical monitoring and management of patients. It is not intended for use in employment-related testing. Test Performed by: [facility] [address] Manager Pediatric: Sujit Sarah II, M.D., Ph.D. 45 REFERENCE VALUE Cutoff: 3.0 46 ADDITIONAL INFORMATION This report is intended for use in clinical monitoring and management of patients. It is not intended for use in employment-related testing. Test Performed by: [facility] [address] Manager Pediatric: Sujit Sarah II, M.D., Ph.D. 47 Because ethnic data is not always readily available, this report includes an eGFR for both -Americans and non- Americans. The National Kidney Disease Education Program (NKDEP) does not endorse the use of the MDRD equation for patients that are not between the ages of 18 and 70, are , have extremes of body size, muscle mass, or nutritional status, or are non- or non-. According to the National Kidney Foundation, irrespective of diagnosis, the stage of the disease is based on the level of kidney function: Stage Description GFR(mL/min/1.73 m(2)) 1 Kidney damage with normal or decreased GFR 90 2 Kidney damage with mild decrease in GFR 60-89 3 Moderate decrease in GFR 30-59 4 Severe decrease in GFR 15-29 5 Kidney failure <15 (or dialysis) 48 REFERENCE VALUE Cutoff: 500 49 REFERENCE VALUE Cutoff: 200 50 REFERENCE VALUE Cutoff: 200 51 REFERENCE VALUE Cutoff: 150 52 REFERENCE VALUE Cutoff: 150 53 REFERENCE VALUE Cutoff: 300 54 ADDITIONAL INFORMATION This report is intended for use in clinical monitoring or management of patients. It is not intended for use in employment-related testing. 55 REFERENCE VALUE Cutoff: 100 ADDITIONAL INFORMATION This report is intended for use in clinical monitoring or management of patients. It is not intended for use in employment-related testing. Test Performed by: [address] [address] Manager Pediatric: Sujit Sarah II, M.D., Ph.D. 56 Acute inflammation: >10.00 57 Slide reviewed. Thrombocytosis noted. Mild leukocytosis and normochromic normocytic anemia noted. Additional studies may be considered as indicated clinically. Reviewed by Dr. Goodwin 58 Because ethnic data is not always readily available, this report includes an eGFR for both -Americans and non- Americans. The National Kidney Disease Education Program (NKDEP) does not endorse the use of the MDRD equation for patients that are not between the ages of 18 and 70, are , have extremes of body size, muscle mass, or nutritional status, or are non- or non-. According to the National Kidney Foundation, irrespective of diagnosis, the stage of the disease is based on the level of kidney function: Stage Description GFR(mL/min/1.73 m(2)) 1 Kidney damage with normal or decreased GFR 90 2 Kidney damage with mild decrease in GFR 60-89 3 Moderate decrease in GFR 30-59 4 Severe decrease in GFR 15-29 5 Kidney failure <15 (or dialysis) 59 Because ethnic data is not always readily available, this report includes an eGFR for both -Americans and non- Americans. The National Kidney Disease Education Program (NKDEP) does not endorse the use of the MDRD equation for patients that are not between the ages of 18 and 70, are , have extremes of body size, muscle mass, or nutritional status, or are non- or non-. According to the National Kidney Foundation, irrespective of diagnosis, the stage of the disease is based on the level of kidney function: Stage Description GFR(mL/min/1.73 m(2)) 1 Kidney damage with normal or decreased GFR 90 2 Kidney damage with mild decrease in GFR 60-89 3 Moderate decrease in GFR 30-59 4 Severe decrease in GFR 15-29 5 Kidney failure <15 (or dialysis) 60 Reference ranges based on room air. 61 *Ascorbic acid is present which may interfere with detection of blood. 62 Because ethnic data is not always readily available, this report includes an eGFR for both -Americans and non- Americans. The National Kidney Disease Education Program (NKDEP) does not endorse the use of the MDRD equation for patients that are not between the ages of 18 and 70, are , have extremes of body size, muscle mass, or nutritional status, or are non- or non-. According to the National Kidney Foundation, irrespective of diagnosis, the stage of the disease is based on the level of kidney function: Stage Description GFR(mL/min/1.73 m(2)) 1 Kidney damage with normal or decreased GFR 90 2 Kidney damage with mild decrease in GFR 60-89 3 Moderate decrease in GFR 30-59 4 Severe decrease in GFR 15-29 5 Kidney failure <15 (or dialysis) 63 Acute inflammation: >10.00 64 SEE RESULT BELOW Name: BRENNA DEL ROSARIO : [address]: Blayne Gonzalez MD Acct: [id number] Unit: [id number] AGE: 38 Location: ICU [id number] Re09/19/14 SEX: F Status: ADM IN SPEC: [id number] YAZMIN: 09/18/[address] [facility] [address]: Audra PEÑA REQ: [id number] RECD: 09/19/14 STATUS: SHIVANI MONTE DR: MD Cori Nichols NP, MD _ SOURCE: URINE SPDESC: ORDERED: Urine Culture Procedure Result Verified Site Urine Culture Final 09/21/14- 0856 ML Organism 1 ESCHERICHIA COLI [place] Count >100,000 (Many) CFU/ML 1. ESCHERICHIA COLI M.I.C. RX --------- ------ Ampicillin >=32 R Cefazolin <=4 S Cefepime <=1 S Ceftriaxone <=1 S Ciprofloxacin 1 S Gentamicin <=1 S Levofloxacin 1 S Meropenem <=0.25 S Nitrofurantoin <=16 S Tetracycline >=16 R Pipercillin/Tazobactam <=4 S Trimethoprim/Sulfamethoxazole <=20 S Amoxicillin/Clavulanic Acid 4 S Aztreonam <=1 S Contact the Microbiology Department for any additional antibiotic reporting. * ML - [facility]) . END OF REPORT * ML=Testing performed at Main Lab DEPARTMENT OF PATHOLOGY, [address] [place] [address] Jac Goodwin M.D. Director [facility] # [id number] 65 Therapeutic concentration: <50 ug/mL Toxic concentration: >120 ug/mL 66 RUN DATE: 07/18/14 [facility] LAB LIVE PAGE 1 RUN TIME: [address] [place] [address] Specimen Inquiry Name: BRENNA DEL ROSARIO : [address]: Arnol Bonilla III, MD Acct: [id number] Unit: [id number] AGE: 38 Location: [facility] Re07/16/14 SEX: F Status: REG REF SPEC: [id number] YAZMIN: 07/16/14-[address]: Arnol Bonilla III, MD REQ: [id number] RECD: 07/16/14-9005 STATUS: COMP _ SOURCE: URINE SPDESC: ORDERED: Urine Culture QUERIES: Provider Requisition # [id number] Procedure Result Verified Site Urine Culture Final 07/18/14- 1157 ML Organism 1 NORMAL JLUIS [place] Count 1-10,000 (Few) CFU/ML * ML - MAIN LAB ([facility]) . END OF REPORT * ML=Testing performed at Main Lab DEPARTMENT OF PATHOLOGY, [facility] [employer] [place], [place] [address] Jac Goodwin M.D. Director [facility] # [id number] 67 Acute inflammation: >10.00 68 Because ethnic data is not always readily available, this report includes an eGFR for both -Americans and non- Americans. The National Kidney Disease Education Program (NKDEP) does not endorse the use of the MDRD equation for patients that are not between the ages of 18 and 70, are , have extremes of body size, muscle mass, or nutritional status, or are non- or non-. According to the National Kidney Foundation, irrespective of diagnosis, the stage of the disease is based on the level of kidney function: Stage Description GFR(mL/min/1.73 m(2)) 1 Kidney damage with normal or decreased GFR 90 2 Kidney damage with mild decrease in GFR 60-89 3 Moderate decrease in GFR 30-59 4 Severe decrease in GFR 15-29 5 Kidney failure <15 (or dialysis) 69 RUN DATE: 04/22/14 [facility] LAB LIVE PAGE 1 RUN TIME: 925 [facility] [employer] [place], [place] [address] Specimen Inquiry Name: BRENNA DEL ROSARIO : [address]: Roman Loyola MD Acct: [id number] Unit: [id number] AGE: 38 Location: ED Re04/19/14 SEX: F Status: DEP ER SPEC: [id number] YAZMIN: 04/20/[address] [facility] [address]: Roman David MD REQ: [id number] RECD: 04/20/14 STATUS: SHIVANI MONTE DR: [facility] MD Cori Nichols TRAVELING SALES REPRESENTATIVE _ SOURCE: URINE SPDESC: ORDERED: Urine Culture Procedure Result Verified Site Urine Culture Final 04/22/14- 925 ML Organism 1 ESCHERICHIA COLI [place] Count >100,000 (Many) CFU/ML 1. ESCHERICHIA COLI M.I.C. RX --------- ------ Ampicillin >=32 R Cefazolin <=4 S Cefepime <=1 S Ceftriaxone <=1 S Ciprofloxacin 1 S Gentamicin <=1 S Levofloxacin 1 S Meropenem <=0.25 S Nitrofurantoin <=16 S Tetracycline >=16 R Pipercillin/Tazobactam <=4 S Trimethoprim/Sulfamethoxazole <=20 S Amoxicillin/Clavulanic Acid 4 S Aztreonam <=1 S Contact the Microbiology Department for any additional antibiotic reporting. END OF REPORT * ML=Testing performed at Main Lab DEPARTMENT OF PATHOLOGY, [facility] [employer] [place] [id number] Jac Goodwin M.D. Director [facility] # [id number] 70 If is still suspected, please repeat test after 48 to 72 hours. This test detects intact HCG only and is indicated for the early detection of . 71 The urine specimen was tested at the listed cutoffs: Drug class test level (ng/mL) Amphetamines 500 Barbituates 200 Benzodiazepine metabolites 200 Cocaine metabolites 150 Cannabinoids 50 Opiates 300 Pcp 25 This is a screening procedure. Positive results are not confirmed. Specimen was received without chain of custody. Results should be used for medical purposes only. 72 Female urine specimens have been self-validated by [facility] and have been granted conditional assay approval by [facility]. 73 Endocervical Endocervical 74 RUN DATE: 03/16/14 [facility] LAB LIVE PAGE 1 RUN TIME: [address] [employer] [place], [place] [address] Specimen Inquiry Name: BRENNA DEL ROSARIO : [address]: Basil Penn NP Acct: [id number] Unit: [id number] AGE: 38 Location: [facility] Re03/15/14 SEX: F Status: REG REF SPEC: [id number] YAZMIN: 03/15/14-[address]: Basil Penn NP REQ: [id number] RECD: 03/15/14 STATUS: COMP _ SOURCE: VAGINAL SPDESC: ORDERED: [employer] DNA QUERIES: Medent Number [id number] Procedure Result Verified Site Gardnerella/Yeast: Vaginal DNA Final 03/16/14- 1303 ML Organism 1 Negative Gardnerella Organism 2 Negative Cheli The presence of G. vaginalis, although suggestive, is not diagnostic for bacterial vaginosis. Results should be interpreted in conjuction with other clinical and laboratory data available. Women with vaginal discharge should be evaluated for risk factors of cervicitis and pelvic inflammatory disease, toxic shock syndrome (S.aureus), and if present, evaluated for organisms not included in this assay such as N. gonorrhoeae, C. trachomatis, Mobiluncus, Mycoplasma and/or Prevotella. Mixed infections may occur. The performance of this test on patient specimens collected during or immediately after antimicrobial therapy is unknown. The presence or absence of Cheli species, or G. vaginalis cannot be used as a test for therapeutic success or failure. END OF REPORT * ML=Testing performed at Main Lab DEPARTMENT OF PATHOLOGY, [address] [place] [address] Jac Goodwin M.D. Director [facility] # [id number] 75 AA 01/14 76 RUN DATE: 01/12/14 [facility] LAB LIVE PAGE 1 RUN TIME: [address] [place] [address] Specimen Inquiry Name: BRENNA DEL ROSARIO : [address]: Guille Jimenez MD Acct: [id number] Unit: [id number] AGE: 38 Location: PAT Re01/10/14 SEX: F Status: REG REF SPEC: [id number] YAZMIN: 01/10/14-[address] [facility] [address]: Guille Jimenez MD REQ: [id number] RECD: 01/10/14 STATUS: SHIVANI MONTE DR: Bessie Garrett MD _ SOURCE: URINE SPDESC: ORDERED: Urine Culture COMMENTS: JEMMA 01/14 QUERIES: Urine Source: Random Procedure Result Verified Site Urine Culture Final 01/12/14- 0908 ML Organism 1 KLEBSIELLA PNEUMONIAE [place] Count >100,000 (Many) CFU/ML 1. KLEBSIELLA PNEUMONIAE M.I.C. RX --------- ------ Ampicillin R Cefazolin <=4 S Cefepime <=1 S Ceftriaxone <=1 S Ciprofloxacin <=0.25 S Gentamicin <=1 S Levofloxacin <=0.12 S Meropenem <=0.25 S Nitrofurantoin 32 S Tetracycline <=1 S Pipercillin/Tazobactam <=4 S Trimethoprim/Sulfamethoxazole <=20 S Amoxicillin/Clavulanic Acid <=2 S Aztreonam <=1 S Contact the Microbiology Department for any additional antibiotic reporting. END OF REPORT * ML=Testing performed at Main Lab DEPARTMENT OF PATHOLOGY, [address] [place] [address] Jac Goodwin M.D. Director [facility] # [id number] 77 If is still suspected, please repeat test after 48 to 72 hours. This test detects intact HCG only and is indicated for the early detection of . 78 *Ascorbic acid is present which may interfere with detection of blood. 79 Because ethnic data is not always readily available, this report includes an eGFR for both -Americans and non- Americans. The National Kidney Disease Education Program (NKDEP) does not endorse the use of the MDRD equation for patients that are not between the ages of 18 and 70, are , have extremes of body size, muscle mass, or nutritional status, or are non- or non-. According to the National Kidney Foundation, irrespective of diagnosis, the stage of the disease is based on the level of kidney function: Stage Description GFR(mL/min/1.73 m(2)) 1 Kidney damage with normal or decreased GFR 90 2 Kidney damage with mild decrease in GFR 60-89 3 Moderate decrease in GFR 30-59 4 Severe decrease in GFR 15-29 5 Kidney failure <15 (or dialysis) 80 AA 01/14 81 Because ethnic data is not always readily available, this report includes an eGFR for both -Americans and non- Americans. The National Kidney Disease Education Program (NKDEP) does not endorse the use of the MDRD equation for patients that are not between the ages of 18 and 70, are , have extremes of body size, muscle mass, or nutritional status, or are non- or non-. According to the National Kidney Foundation, irrespective of diagnosis, the stage of the disease is based on the level of kidney function: Stage Description GFR(mL/min/1.73 m(2)) 1 Kidney damage with normal or decreased GFR 90 2 Kidney damage with mild decrease in GFR 60-89 3 Moderate decrease in GFR 30-59 4 Severe decrease in GFR 15-29 5 Kidney failure <15 (or dialysis) 82 RESULT: Ectocervical/Endocervical 83 The following Other High Risk HPV types were not detected: 31, 33, 35, 39, 45, 51, 52, 56, 58, 59, 66, and 68 Test Performed by: [place] [address] Manager Pediatric: Peter Portillo III, M.D. 84 RUN DATE: 11/23/13 [facility] LAB LIVE PAGE 1 RUN TIME: [address] [place] [address] Specimen Inquiry Name: BRENNA DEL ROSARIO : [address]: Cori Kaur NP Acct: [id number] Unit: [id number] AGE: 38 Location: [facility] Re11/22/13 SEX: F Status: REG REF SPEC: [id number] YAZMIN: 11/22/13-[address] [facility] [address]: Cori Kaur NP REQ: [id number] RECD: 11/22/13-1613 STATUS: SOUT _ ORDERED: IMAGE ANALYSIS, HPV/Thin Prep FINAL DIAGNOSIS Negative for Intraepithelial lesion or Malignancy COMMENTS: Specimen sent to [facility] [employer] in [place], [place] on 11/23/13 by OSKAR at [facility]. Results will be reported separately. A. Ectocervical/Endocervical Specimen Adequacy: Satisfactory of evaluation Transformation zone component identified Patient Information: HPV: High risk HPV DNA testing regardless of pap results. Actual Specimen Date: 11/22/13 Last Menstrual Date: 11/18/13 ?: N Post Menopausal?: N Hysterectomy?: N Previous Abnormal Pap Smears?:N Signed (signature on file) JOSE Major (ASCP) 11/23 1152 This Pap test was evaluated with the assistance of the MeditechPrep Test Imaging System. Due to cytologic findings at the rec therapist microscope, comprehensive manual rescreening by a Resource Room Teacher may be required. The Pap Smear is a screening test designed to aid in the detection of premalignant and malignant conditions of the uterine cervix. It is not a diagnostic procedure and should not be used as the sole means of detecting cervical cancer. Both false- positive and false- negative reports do occur. Depending on your risk status, a Pap smear shoudl be obtained and evaluated every 1-3 years. END OF REPORT * ML=Testing performed at Main Lab DEPARTMENT OF PATHOLOGY, [address] [place] [address] Jac Goodwin M.D. Director [facility] # [id number] FASTING 86 FASTING 87 Because ethnic data is not always readily available, this report includes an eGFR for both -Americans and non- Americans. The National Kidney Disease Education Program (NKDEP) does not endorse the use of the MDRD equation for patients that are not between the ages of 18 and 70, are , have extremes of body size, muscle mass, or nutritional status, or are non- or non-. According to the National Kidney Foundation, irrespective of diagnosis, the stage of the disease is based on the level of kidney function: Stage Description GFR(mL/min/1.73 m(2)) 1 Kidney damage with normal or decreased GFR 90 2 Kidney damage with mild decrease in GFR 60-89 3 Moderate decrease in GFR 30-59 4 Severe decrease in GFR 15-29 5 Kidney failure <15 (or dialysis) 88 Desirable <150 Borderline high 150-199 High 200-499 Very High >500 89 Desirable <200 Borderline high 200-239 High >239 90 Low <40 Desirable: 40-60 High: >60 91 Desirable <100 Near Optimal 100-129 Borderline high 130-159 High 160-189 Very High >189 92 If is still suspected, please repeat test after 48 to 72 hours. This test detects intact HCG only and is indicated for the early detection of . 93 RUN DATE: 07/18/13 [facility] LAB LIVE PAGE 1 RUN TIME: 112[address] [place], [place] [address] Specimen Inquiry Name: BRENNA DEL ROSARIO : [address]: Genesis Pizano MD Acct: [id number] Unit: [id number] AGE: 37 Location: [facility]: 07/16/13 SEX: F Status: REG REF SPEC: [id number] YAZMIN: 07/16/13-[address] [facility] [address]: Genesis Pizano MD REQ: [id number] RECD: 07/16/13160 STATUS: COMP _ SOURCE: CERVIX SPDESC: ORDERED: Genital Culture QUERIES: Medent Number [id number] Procedure Result Verified Site Genital Culture Final 07/18/13- 1129 ML Organism 1 APOLLO VAGINALIS - PRESUMPTIVE Quantity 3+ Organism 2 NORMAL JLUIS Quantity 3+ END OF REPORT * ML=Testing performed at Main Lab DEPARTMENT OF PATHOLOGY, [facility] [employer] [place], [place] [address] Jac Goodwni M.D. Director [facility] Permit #[id number] 94 RUN DATE: 06/17/13 [facility] LAB LIVE PAGE 1 RUN TIME: [address] [place] [address] Specimen Inquiry Name: BRENNA DEL ROSARIO : [address]: Cori Kaur NP Acct: [id number] Unit: [id number] AGE: 37 Location: [facility] Re06/15/13 SEX: F Status: REG REF SPEC: [id number] YAZMIN: 06/15/13-[address] [facility] [address]: Cori Kaur NP REQ: [id number] RECD: 06/15/13-833 STATUS: COMP _ SOURCE: URINE SPDESC: ORDERED: Urine Culture QUERIES: Medent Number [id number] Procedure Result Verified Site Urine Culture Final 06/17/13- 927 ML Few Enterobacteriacae; possible contamination. END OF REPORT * ML=Testing performed at Main Lab DEPARTMENT OF PATHOLOGY, [facility] [employer] [place] [address] Jac Goodwin M.D. Director [facility] Permit #[id number] 95 RUN DATE: 05/23/13 [facility] LAB LIVE PAGE 1 RUN TIME: [address] [place] [address] Specimen Inquiry Name: BRENNA DEL ROSARIO : [address]: Nancy Maier MD Acct: [id number] Unit: [id number] AGE: 37 Location: [facility] Re05/22/13 SEX: F Status: REG REF SPEC: [id number] YAZMIN: 05/22/13-[address] [facility] [address]: Nancy Maier MD REQ: [id number] RECD: 05/22/13 STATUS: COMP _ SOURCE: VAGINAL SPDESC: ORDERED: Affirm QUERIES: Medent Number [id number] Procedure Result Verified Site Affirm Vaginal DNA Probe Final 05/23/13- 0909 ML Organism 1 Negative Trichomonas Organism 2 POSITIVE GARDNERELLA Organism 3 Negative Cheli The presence of G. vaginalis, although suggestive, is not diagnostic for bacterial vaginosis. Results should be interpreted in conjunction with other clinical and laboratory data available. Women with vaginal discharge should be evaluated for risk factors of cervicitis and pelvic inflammatory disease, toxic shock syndrome (S.aureus), and if present, evaluated for organisms not included in this assay such as N. gonorrhoeae, C. trachomatis, Mobiluncus, Mycoplasma and/or Prevotella. Mixed infections may occur. The performance of this test on patient specimens collected during or immediately after antimicrobial therapy is unknown. The presence or absence of Cheli species, G. vaginalis or T. vaginalis cannot be used as a test for therapeutic success or failure. END OF REPORT * ML=Testing performed at Main Lab DEPARTMENT OF PATHOLOGY, [facility] [employer] [place], [place] [address] Jac Goodwin M.D. Director [facility] Permit #[id number] 96 Tube 2 97 Tube 2 98 RUN DATE: 11/14/12 [facility] LAB LIVE PAGE 1 RUN TIME: 907 [facility] [employer] [place], [place] [address] Specimen Inquiry Name: BRENNA DEL ROSARIO : [address]: Jerome Adamson MD Acct: [id number] Unit: [id number] AGE: 37 Location: ED Re11/10/12 SEX: F Status: DEP ER SPEC: [id number] YAZMIN: 11/10/12-[address]: Jerome Adamson MD REQ: [id number] RECD: 11/10/12 STATUS: COMP [facility] DR: Cori Kaur TRAVELING SALES REPRESENTATIVE _ SOURCE: CSF SPDESC: ORDERED: CSF Cult/GS COMMENTS: Tube 3 Procedure Result Verified Site CSF Gram Stain Final 11/11/12- 07 ML No Polys Observed No Organisms Seen Preparation By Cytospin Smear CSF Culture Final 11/14/12- 907 ML No Growth Day 4 END OF REPORT * ML=Testing performed at Main Lab DEPARTMENT OF PATHOLOGY, [address] [place] [address] Jac Goodwin M.D. Director [place] [facility] Permit #[id number] 99 Slide and differential reviewed. No bacteria, blasts or other malignant cells seen. REVIEWED BY JAC GOODWIN MD 100 If is still suspected, please repeat test after 48 to 72 hours. This test detects intact HCG only and is indicated for the early detection of . 101 RUN DATE: 06/04/12 [facility] LAB LIVE PAGE 1 RUN TIME: [address] [place] [address] Specimen Inquiry Name: BRENNA DEL ROSARIO : [address]: Rebecca Peterson MD Acct: [id number] Unit: [id number] AGE: 36 Location: [facility] Re06/02/12 SEX: F Status: REG REF SPEC: [id number] YAZMIN: 06/02/12-[address]: Rebecca Peterson MD REQ: [id number] RECD: 06/02/12 STATUS: COMP _ SOURCE: URINE SPDESC: ORDERED: Urine Culture QUERIES: Medent Number [id number] Procedure Result Verified Site Urine Culture Final 06/04/12- 0809 ML Organism 1 ESCHERICHIA COLI [place] Count >100,000 (Many) CFU/ML 1. ESCHERICHIA COLI M.I.C. RX --------- ------ Ampicillin >=32 R Cefazolin <=4 S Cefepime <=1 S Ceftriaxone <=1 S Ciprofloxacin <=0.25 S Gentamicin <=1 S Imipenem <=0.25 S Levofloxacin <=0.12 S Meropenem <=0.25 S Nitrofurantoin 32 S Tetracycline <=1 S Pipercillin/Tazobactam 8 S Trimethoprim/Sulfamethoxazole <=20 S Amoxicillin/Clavulanic Acid >=32 R Aztreonam <=1 S Contact the Microbiology Department for any additional antibiotic reporting. END OF REPORT * ML=Testing performed at Main Lab DEPARTMENT OF PATHOLOGY, [address] [place] [address] Jac Goodwin M.D. Director [facility] Permit #[id number] 102 RUN DATE: 04/28/12 [facility] LAB LIVE PAGE 1 RUN TIME: [address] [place] [address] Specimen Inquiry Name: BRENNA DEL ROSARIO : [address]: Cori Kaur NP Acct: [id number] Unit: [id number] AGE: 36 Location: [facility] Re04/26/12 SEX: F Status: REG REF SPEC: [id number] YAZMIN: 04/26/12-[address]: Cori Kaur NP REQ: [id number] RECD: 04/26/12 STATUS: COMP _ SOURCE: URINE SPDESC: ORDERED: Urine Culture QUERIES: Medent Number [id number] Procedure Result Verified Site Urine Culture Final 04/28/12- 842 ML Organism 1 KLEBSIELLA PNEUMONIAE [place] Count 75-100,000 (Many) CFU/ML 1. KLEBSIELLA PNEUMONIAE M.I.C. RX --------- ------ Amikacin <=2 S Ampicillin >=32 R * Ampicillin/Sublactam >=32 R Cefazolin <=4 S Cefepime <=1 S Cefoxitin <=4 S Ceftazidime <=1 S Ceftriaxone <=1 S Ciprofloxacin <=0.25 S Gentamicin <=1 S Imipenem <=1 S Levofloxacin <=0.12 S Nitrofurantoin 128 R Piperacillin >=128 R Tigecycline 2 S Trimethoprim/Sulfamethoxazole <=20 S * These antibiotics are not available in the [facility] Formulary Contact the Microbiology Department for any additional antibiotic reporting. END OF REPORT * ML=Testing performed at Main Lab DEPARTMENT OF PATHOLOGY, [address] [place] [address] Jac Goodwin M.D. Director [facility] Permit #[id number] 103 It is recognized that currently available assays for the detection of antibodies to HIV-1 and/or HIV-2 may not detect all infected individuals. HIV antibodies may be undetectable in some stages of the infection and in some clinical conditions. The performance of this assay has not been established for populations of infants or children. Assayed by Chemiluminescence Microparticle Immunoassay on the [employer] Centaur CP. Values obtained with different methods or kits cannot be used interchangeably.The diagnostic specificity of the ADVIA Centaur 1/O/2 Enhanced assay in the low risk population was 99.90% (6029/6027) with a 95% confidence interval of 99.78 to 99.96%. 104 ----- RUN DATE: 08/24/11 [facility] NMI LIVE PAGE 1 RUN TIME: 1520 Specimen Inquiry RUN USER: INTERFACE -- Name: DEL ROSARIOBRENNA E Accabril#: [id number] Status: REG REF Re08/24/11 Age/Sex: 35/F Unit#: [id number] Location: [facility]. : [birth year] -- Specimen: [id number] [facility] Spec Date:08/24/[address]: Cori Kaur [facility] Spec Type: CYTOLOGY Received:08/24/11-1121 Copies to: SOURCE ECTOCERVICAL/ENDOCERVICAL Thin Prep with Reflex HPV Test PATIENT INFORMATION ACTUAL COLLECTION DATE: 08/24/11 ? No POST MENOPAUSAL? No HYSTERECTOMY? No PREVIOUS ABNORMAL PAP SMEARS No PATIENT HISTORY: Last menstrual period 3 wks ago ADEQUACY OF SPECIMEN Satisfactory for evaluation * Transformation zone component identified * DIAGNOSIS NEGATIVE FOR INTRAEPITHELIAL LESION OR MALIGNANCY * This Pap test was evaluated with the assistance of the ThinPrep Pap Test Imaging System. The Pap Smear is a screening test designed to aid in the detection of premalign ant and malignant conditions of the uterine cervix. It is not a diagnostic procedure a nd should not be used as the sole means of detecting cervical cancer. Both false- positiv e and false-negative reports do occur. Depending on your risk status, a Pap smear celso uld be obtained and evaluated every one to three years. Initial evaluation performed by Patty [facility] 08/24/11 Final Interpretation electronically signed by: Patty [facility]) 08/24/11 1519 -- -- DEPARTMENT OF PATHOLOGY, [address] [place] [address] [facility] Permit #[id number] Jac Goodwin M.D. Director Cecy Sherman M.D. [employer] Construction Manager Dir izquierdo -- 105 RUN DATE: 08/27/11 [facility] NMI LIVE PAGE 1 RUN TIME: 1416 Specimen Inquiry RUN USER: INTERFACE Name: DEL ROSARIOBRENNA Status: REG REF Re08/24/11 Age/Sex: 35/F Unit#: [id number] Location: [facility] : [birth year] SPEC #: [id number] YAZMIN: 08/24/11 STATUS: COMP REQ #: [id number] RECD: 08/24/11-[address]: Cori Steele SOURCE: THIN PREP ENTR: 08/24/11-[address]: FRANTZ: ORDERED: GC/CHL APTIMA QUERIES: MEDENT REQUISITION # [id number] ACT WKST: GCCHL 08/27/11 #1 Procedure Result Verified Site > CHLAMYDIA TRACHOMATIS RNA Final -1416 ML NEGATIVE FOR CHLAMYDIA TRACHOMATIS rRNA A negative result does not preclude the presence of a C.trachomatis or N.gonorrhoeae infection because results are dependent on adequate specimen collection, absence of inhibitors, and sufficient rRNA to be detected. Test results may be affected by improper specimen collection, improper specimen storage, technical error, or specimen mixup. Limitations of the Procedure: The Aptima Combo 2 Assay is not intended for the evaluation of suspected sexual abuse or for other medico-legal indications. For those patients for whom a false positive result may have adverse psychosocial impact, the CDC recommends retesting by a method using an alternate technology. Therapeutic failure or success cannot be determined with the Aptima Combo 2 Assay since nucleic acid may persist following appropriate antimicrobial therapy. Results from the APTIMA Combo 2 Assay should be interpreted in conjunction with other laboraotry and clinical data available to the clinician. Performance characteristics for detecting C. trachomatis and N. gonorrhoeae are derived from high prevalence populations. Positive results in low prevalence populations should be interpreted carefully with the understanding that the likelihood of a false positive may be higher than a true positive. DEPARTMENT OF PATHOLOGY, [address] [place] [address] [facility] Permit #[id number] Jac Goodwin M.D. Director Cecy Sherman M.D. Manager School RUN DATE: 08/27/11 [facility] NMI LIVE PAGE 2 RUN TIME: 1416 Specimen Inquiry RUN USER: INTERFACE Name: BRENNA DEL ROSARIO Accabril#: [id number] Status: REG REF Re08/24/11 Age/Sex: 35/F Unit#: [id number] Location: [facility] : [birth year] -- -- CONTINU ED Procedure Result Verified Site > GC (N. GONORRHOEAE) RNA Final -1416 ML NEGATIVE FOR NEISSERIA GONORRHOEAE rRNA A negative result does not preclude the presence of a C.trachomatis or N.gonorrhoeae infection because results are dependent on adequate specimen collection, absence of inhibitors, and sufficient rRNA to be detected. Test results may be affected by improper specimen collection, improper specimen storage, technical error, or specimen mixup. Limitations of the Procedure: The Aptima Combo 2 Assay is not intended for the evaluation of suspected sexual abuse or for other medico-legal indications. For those patients for whom a false positive result may have adverse psychosocial impact, the [facility] recommends retesting by a method using an alternate technology. Therapeutic failure or success cannot be determined with the Aptima Combo 2 Assay since nucleic acid may persist following appropriate antimicrobial therapy. Results from the APTIMA Combo 2 Assay should be interpreted in conjunction with other laboraotry and clinical data available to the clinician. Performance characteristics for detecting C. trachomatis and N. gonorrhoeae are derived from high prevalence populations. Positive results in low prevalence populations should be interpreted carefully with the understanding that the likelihood of a false positive may be higher than a true positive. [facility] Permit #[id number] [address] [place] [address] DEPARTMENT OF PATHOLOGY, [address] [place] [address] [facility] Permit #[id number] Jac Goodwin M.D. Director Cecy Sherman M.D. Manager School 106 Anion gap measurement may be of limited value in the presence of any alkalosis, especially in a combined acid base disorder. . 107 A metabolite of Naproxen, O-desmethylnaproxen, has been shown to interfere with the [place] method for measuring total bilirubin. Samples from patients who have taken Naproxen have shown spurious elevation in total bilirubin levels. 108 Because ethnic data is not always readily available, this report includes an eGFR for both -Americans and non- Americans. The National Kidney Disease Education Program (NKDEP) does not endorse the use of the MDRD equation for patients that are not between the ages of 18 and 70, are , have extremes of body size, muscle mass, or nutritional status, or are non- or non-. According to the National Kidney Foundation, irrespective of diagnosis, the stage of the disease is based on the level of kidney function: Stage Description GFR(mL/min/1.73 m(2)) 1 Kidney damage with normal or decreased GFR 90 2 Kidney damage with mild decrease in GFR 60-89 3 Moderate decrease in GFR 30-59 4 Severe decrease in GFR 15-29 5 Kidney failure <15 (or dialysis) 109 PLEASE NOTE NEW REFERENCE RANGE. 110 RUN DATE: 07/02/11 [facility] NMI LIVE PAGE 1 RUN TIME: 1327 Specimen Inquiry RUN USER: INTERFACE Name: BRENNA DEL ROSARIO Accabril#: [id number] Status: REG REF Re07/01/11 Age/Sex: 35/F Unit#: [id number] Location: [facility] : 77 SPEC #: [id number] YAZMIN: 07/01/11 STATUS: COMP REQ #: [id number] RECD: 07/01/[address] [facility] [address]: Vincent OSCARPCori SOURCE: ENDOCERVIX ENTR: 07/01/[address] ORDERED: GC/CHL APTIMA QUERIES: MEDENT REQUISITION # [id number] ACT WKST: GCCHL 07/02/11 #1 Procedure Result Verified Site > CHLAMYDIA TRACHOMATIS RNA Final -1327 ML POSITIVE FOR CHLAMYDIA TRACHOMATIS rRNA Limitations of the Procedure: The Aptima Combo 2 Assay is not intended for the evaluation of suspected sexual abuse or for other medico-legal indications. For those patients for whom a false positive result may have adverse psychosocial impact, the CDC recommends retesting by a method using an alternate technology. Therapeutic failure or success cannot be determined with the Aptima Combo 2 Assay since nucleic acid may persist following appropriate antimicrobial therapy. Results from the APTIMA Combo 2 Assay should be interpreted in conjunction with other laboratory and clinical data available to the clinician. Performance characteristics for detecting C. trachomatis and N. gonorrhoeae are derived from high prevalence populations. Positive results in low prevalence populations should be interpreted carefully with the understanding that the likelihood of a false positive may be higher than a true positive. > GC (N. GONORRHOEAE) RNA Final -1327 ML NEGATIVE FOR NEISSERIA GONORRHOEAE rRNA A negative result does not preclude the presence of a C.trachomatis or N.gonorrhoeae infection because results are dependent on adequate specimen collection, absence of inhibitors, and sufficient rRNA to be detected. Test DEPARTMENT OF PATHOLOGY, [address] [place] [address] [facility] Permit #[id number] Swathi Batlazar M.D. Manager School RUN DATE: 07/02/11 [facility] NMI LIVE PAGE 2 RUN TIME: 1327 Specimen Inquiry RUN USER: INTERFACE Name: BRENNA DEL ROSARIO Status: REG REF Re07/01/11 Age/Sex: 35/F Unit#: [id number] Location: [facility] : 77 -- -- CONTINU ED Procedure Result Verified Site GC (N. GONORRHOEAE) RNA Final (continued) 07/02/11- 1327 results may be affected by improper specimen collection, improper specimen storage, technical error, or specimen mixup. Limitations of the Procedure: The Aptima Combo 2 Assay is not intended for the evaluation of suspected sexual abuse or for other medico-legal indications. For those patients for whom a false positive result may have adverse psychosocial impact, the [facility] recommends retesting by a method using an alternate technology. Therapeutic failure or success cannot be determined with the Aptima Combo 2 Assay since nucleic acid may persist following appropriate antimicrobial therapy. Results from the APTIMA Combo 2 Assay should be interpreted in conjunction with other laboraotry and clinical data available to the clinician. Performance characteristics for detecting C. trachomatis and N. gonorrhoeae are derived from high prevalence populations. Positive results in low prevalence populations should be interpreted carefully with the understanding that the likelihood of a false positive may be higher than a true positive. [facility] Permit #[id number] [facility] [employer] [facility] [address] DEPARTMENT OF PATHOLOGY, [facility] [employer] [place], [place] [address] [facility] Permit #[id number] Jac Goodwin M.D. Director Cecy Sherman M.D. Manager School 111 If is still suspected, please repeat test after 48 to 72 hours. . This test detects intact HCG only and is indicated for the early detection of . 112 RUN DATE: 04/08/11 [facility] NMI LIVE PAGE 1 RUN TIME: 1022 Specimen Inquiry RUN USER: INTERFACE Name: BRENNA DEL ROSARIO Accabril#: [id number] Status: REG REF Re04/06/11 Age/Sex: 35/F Unit#: [id number] Location: [facility] : 77 SPEC #: [id number] YAZMIN: 04/06/11 STATUS: COMP REQ #: [id number] RECD: 04/06/11-[address]: Cori Steele SOURCE: URINE ENTR: 04/06/11-[address] [facility] [address]: [facility]: ORDERED: URINE C S QUERIES: MEDENT REQUISITION # [id number] SPECIMEN DESCRIPTION: URINE, CLEAN CATCH Procedure Result Verified Site > URINE CULTURE SENSITIVI Final -1022 ML Organism 1 ESCHERICHIA COLI [place] COUNT 25-50,000 ORGANISMS/ML (MODERATE) 1. ESCHERICHIA COLI RX M.I.C. ------ --------- AMIKACIN S <=2 LEVOFLOXACIN S <=0.12 AMPICILLIN S 8 CEFAZOLIN S <=4 CEFTRIAXONE S <=1 CIPROFLOXACIN S <=0.25 GENTAMICIN S <=1 TIGECYCLINE S <=0.5 CEFTAZIDIME S <=1 IMIPENEM S <=1 NITROFURANTOIN S <=16 TRIMETH-SULFA S <=20 *These antibiotics are not available in the [facility] Formulary. Contact the Microbiology Department for any additional antibiotic reporting. [facility] Permit #[id number] [address] [place] [address] DEPARTMENT OF PATHOLOGY, [address] [place] [address] [facility] Permit #[id number] Swathi Baltazar M.D. Manager School 113 RUN DATE: 04/09/11 [facility] NMI LIVE PAGE 1 RUN TIME: 9710 Specimen Inquiry RUN USER: INTERFACE Name: BRENNA DEL ROSARIO Status: REG REF Re04/06/11 Age/Sex: 35/F Unit#: [id number] Location: [facility] : 76 SPEC #: [id number] YAZMIN: 04/06/1149 STATUS: COMP REQ #: [id number] RECD: 04/06/11-[address] [facility] [address]: Cori Steele SOURCE: ENDOCERVIX ENTR: 04/06/11-[address]: FRANTZC: ORDERED: GC/CHL APTIMA QUERIES: MEDENT REQUISITION # [id number] ACT WKST: GCCHL 04/09/11 #1 Procedure Result Verified Site > CHLAMYDIA TRACHOMATIS RNA Final -1338 ML NEGATIVE FOR CHLAMYDIA TRACHOMATIS rRNA A negative result does not preclude the presence of a C.trachomatis or N.gonorrhoeae infection because results are dependent on adequate specimen collection, absence of inhibitors, and sufficient rRNA to be detected. Test results may be affected by improper specimen collection, improper specimen storage, technical error, or specimen mixup. Limitations of the Procedure: The Aptima Combo 2 Assay is not intended for the evaluation of suspected sexual abuse or for other medico-legal indications. For those patients for whom a false positive result may have adverse psychosocial impact, the CDC recommends retesting by a method using an alternate technology. Therapeutic failure or success cannot be determined with the Aptima Combo 2 Assay since nucleic acid may persist following appropriate antimicrobial therapy. Results from the APTIMA Combo 2 Assay should be interpreted in conjunction with other laboraotry and clinical data available to the clinician. Performance characteristics for detecting C. trachomatis and N. gonorrhoeae are derived from high prevalence populations. Positive results in low prevalence populations should be interpreted carefully with the understanding that the likelihood of a false positive may be higher than a true positive. DEPARTMENT OF PATHOLOGY, [address] [place] [address] [facility] Permit #[id number] Jac Goodwin M.D. Director Cecy Sherman M.D. Manager School RUN DATE: 04/09/11 [facility] NMI LIVE PAGE 2 RUN TIME: 1338 Specimen Inquiry RUN USER: INTERFACE Name: BRENNA DEL ROSARIO Accabril#: [id number] Status: REG REF Re04/06/11 Age/Sex: 35/F Unit#: [id number] Location: [facility] : 76 -- -- CONTINU ED Procedure Result Verified Site > GC (N. GONORRHOEAE) RNA Final -1338 ML NEGATIVE FOR NEISSERIA GONORRHOEAE rRNA A negative result does not preclude the presence of a C.trachomatis or N.gonorrhoeae infection because results are dependent on adequate specimen collection, absence of inhibitors, and sufficient rRNA to be detected. Test results may be affected by improper specimen collection, improper specimen storage, technical error, or specimen mixup. Limitations of the Procedure: The Aptima Combo 2 Assay is not intended for the evaluation of suspected sexual abuse or for other medico-legal indications. For those patients for whom a false positive result may have adverse psychosocial impact, the CDC recommends retesting by a method using an alternate technology. Therapeutic failure or success cannot be determined with the Aptima Combo 2 Assay since nucleic acid may persist following appropriate antimicrobial therapy. Results from the APTIMA Combo 2 Assay should be interpreted in conjunction with other laboraotry and clinical data available to the clinician. Performance characteristics for detecting C. trachomatis and N. gonorrhoeae are derived from high prevalence populations. Positive results in low prevalence populations should be interpreted carefully with the understanding that the likelihood of a false positive may be higher than a true positive. [facility] Permit #[id number] [address] [place] [address] DEPARTMENT OF PATHOLOGY, [address] [place] [address] [facility] Permit #[id number] Jac Goodwin M.D. Director Cecy Sherman M.D. Manager School [facility] Survey 10, U was cancelled on 04/12/2011 at 10:12; Quantity not sufficient. -- REFERENCE VALUE -- Cutoff: 500 This report is intended for use in clinical monitoring or management of patients. It is not intended for use in employment-related testing. 115 -- REFERENCE VALUE -- Cutoff: 200 -- REFERENCE VALUE -- Cutoff: 200 -- REFERENCE VALUE -- Cutoff: 300 -- REFERENCE VALUE -- Cutoff: 300 116 -- REFERENCE VALUE -- Cutoff: 300 117 -- REFERENCE VALUE -- Cutoff: 300 118 RUN DATE: 03/08/11 [facility] NMI LIVE PAGE 1 RUN TIME: 8776 Specimen Inquiry RUN USER: INTERFACE Name: BRENNA DEL ROSARIO Accabril#: [id number] Status: REG REF Re03/04/11 Age/Sex: 35/F Unit#: [id number] Location: [facility] : 76 SPEC #: [id number] YAZMIN: 03/04/11 STATUS: COMP REQ #: [id number] RECD: 03/04/[address] [facility] [address]: Bessie Garrett MD SOURCE: ENDOCERVIX ENTR: 03/04/[address] [facility] [address]: MARI: ORDERED: GC/CHL APTIMA QUERIES: MEDENT REQUISITION # [id number] ACT WKST: GCCHL 03/08/11 #1 Procedure Result Verified Site > CHLAMYDIA TRACHOMATIS RNA Final -1425 ML NEGATIVE FOR CHLAMYDIA TRACHOMATIS rRNA A negative result does not preclude the presence of a C.trachomatis or N.gonorrhoeae infection because results are dependent on adequate specimen collection, absence of inhibitors, and sufficient rRNA to be detected. Test results may be affected by improper specimen collection, improper specimen storage, technical error, or specimen mixup. Limitations of the Procedure: The Aptima Combo 2 Assay is not intended for the evaluation of suspected sexual abuse or for other medico-legal indications. For those patients for whom a false positive result may have adverse psychosocial impact, the CDC recommends retesting by a method using an alternate technology. Therapeutic failure or success cannot be determined with the Aptima Combo 2 Assay since nucleic acid may persist following appropriate antimicrobial therapy. Results from the APTIMA Combo 2 Assay should be interpreted in conjunction with other laboraotry and clinical data available to the clinician. Performance characteristics for detecting C. trachomatis and N. gonorrhoeae are derived from high prevalence populations. Positive results in low prevalence populations should be interpreted carefully with the understanding that the likelihood of a false positive may be higher than a true positive. DEPARTMENT OF PATHOLOGY, [address] [place] [address] [facility] Permit #[id number] Jac Goodwin M.D. Director Cecy Sherman M.D. Manager School RUN DATE: 03/08/11 [facility] NMI LIVE PAGE 2 RUN TIME: 1426 Specimen Inquiry RUN USER: INTERFACE Name: BRENNA DEL ROSARIO Accabril#: [id number] Status: REG REF Re03/04/11 Age/Sex: 35/F Unit#: [id number] Location: [facility] : 76 -- -- CONTINU ED Procedure Result Verified Site > GC (N. GONORRHOEAE) RNA Final -1425 ML NEGATIVE FOR NEISSERIA GONORRHOEAE rRNA A negative result does not preclude the presence of a C.trachomatis or N.gonorrhoeae infection because results are dependent on adequate specimen collection, absence of inhibitors, and sufficient rRNA to be detected. Test results may be affected by improper specimen collection, improper specimen storage, technical error, or specimen mixup. Limitations of the Procedure: The Aptima Combo 2 Assay is not intended for the evaluation of suspected sexual abuse or for other medico-legal indications. For those patients for whom a false positive result may have adverse psychosocial impact, the CDC recommends retesting by a method using an alternate technology. Therapeutic failure or success cannot be determined with the Aptima Combo 2 Assay since nucleic acid may persist following appropriate antimicrobial therapy. Results from the APTIMA Combo 2 Assay should be interpreted in conjunction with other laboraotry and clinical data available to the clinician. Performance characteristics for detecting C. trachomatis and N. gonorrhoeae are derived from high prevalence populations. Positive results in low prevalence populations should be interpreted carefully with the understanding that the likelihood of a false positive may be higher than a true positive. [facility] Permit #[id number] [address] [place] [address] DEPARTMENT OF PATHOLOGY, [address] [place] [address] [facility] Permit #[id number] Swathi Baltazar M.D. Manager School 119 RUN DATE: 03/05/11 [facility] NMI LIVE PAGE 1 RUN TIME: 924 Specimen Inquiry RUN USER: INTERFACE Name: BRENNA DEL ROSARIO Status: REG REF Re03/04/11 Age/Sex: 35/F Unit#: [id number] Location: [facility] : 76 SPEC #: [id number] YAZMIN: 03/04/11 STATUS: COMP REQ #: [id number] RECD: 03/04/[address] [facility] [address]: Bessie Garrett MD SOURCE: GENITAL ENTR: 03/04/[address]: MARI: VAGINAL ORDERED: WET PREP QUERIES: MEDENT REQUISITION # [id number] ACT WKST: WP 03/05/11 #1 Procedure Result Verified Site > WET PREP Final -09 ML WHITE BLOOD CELLS MANY (GREATER THAN 4/HPF) CLUE CELLS MODERATE (1 TO 4/HPF) YEAST ABSENT TRICHOMONAS VAGINALIS ABSENT SMEAR REVIEWED BY PORFIRIO at 0924 on 03/05/11. MOBILUNCUS SEEN ON SMEAR [facility] Permit #[id number] [address] [place] [address] DEPARTMENT OF PATHOLOGY, [address] [place] [address] [facility] Permit #[id number] Swathi Baltazar M.D. Manager School 120 Presumptive Positive 04/20/11 0927: UR BENZO SCRN previously reported as: TEST RESULT RETURNED FROM REFERENCE LABORATORY. HARDCOPY REPORT TO BE SENT TO PHYSICIAN(S) OFFICE. -- REFERENCE VALUE -- Cutoff: 200 121 -- REFERENCE VALUE -- Cutoff: 100 122 -- REFERENCE VALUE -- Cutoff: 100 123 -- REFERENCE VALUE -- Cutoff: 100 124 -- REFERENCE VALUE -- Cutoff: 100 125 -- REFERENCE VALUE -- Cutoff: 100 126 -- REFERENCE VALUE -- Cutoff: 100 127 -- REFERENCE VALUE -- Cutoff: 100 128 -- REFERENCE VALUE -- Cutoff: 100 129 04/20/11 0927: UR BENZO INTRP previously reported as: TEST RESULT RETURNED FROM REFERENCE LABORATORY. HARDCOPY REPORT TO BE SENT TO PHYSICIAN(S) OFFICE. This report is intended for use in clinical monitoring and management of patients. It is not intended for use in employment-related testing. Test Performed by: [facility] Dpt of Lab Med and Pathology [address] [place] [address] Manager Pediatric: Peter Portillo III, M.D. 130 -- REFERENCE VALUE -- Cutoff: 500 131 -- REFERENCE VALUE -- Cutoff: 200 132 Presumptive Positive Drug Confirmation ordered by reflex. Refer to confirmation results to follow for the definitive results. -- REFERENCE VALUE -- Cutoff: 200 133 -- REFERENCE VALUE -- Cutoff: 300 134 -- REFERENCE VALUE -- Cutoff: 300 135 -- REFERENCE VALUE -- Cutoff: 300 136 -- REFERENCE VALUE -- Cutoff: 300 137 This report is intended for use in clinical monitoring or management of patients. It is not intended for use in employment-related testing. Test Performed by: [facility] Dpt of Lab Med and Pathology [address] [place] [address] Manager Pediatric: Peter Portillo III, M.D. 138 Anion gap measurement may be of limited value in the presence of any alkalosis, especially in a combined acid base disorder. . 139 A metabolite of Naproxen, O-desmethylnaproxen, has been shown to interfere with the [place] method for measuring total bilirubin. Samples from patients who have taken Naproxen have shown spurious elevation in total bilirubin levels. 140 Because ethnic data is not always readily available, this report includes an eGFR for both -Americans and non- Americans. The National Kidney Disease Education Program (NKDEP) does not endorse the use of the MDRD equation for patients that are not between the ages of 18 and 70, are , have extremes of body size, muscle mass, or nutritional status, or are non- or non-. According to the National Kidney Foundation, irrespective of diagnosis, the stage of the disease is based on the level of kidney function: Stage Description GFR(mL/min/1.73 m(2)) 1 Kidney damage with normal or decreased GFR 90 2 Kidney damage with mild decrease in GFR 60-89 3 Moderate decrease in GFR 30-59 4 Severe decrease in GFR 15-29 5 Kidney failure <15 (or dialysis) 141 FINAL: NO GROWTH DAY 2 (<1,000 CFU/mL) Procedures Date CPT Code Description Status 02/17/2017 Mammogram Completed 02/01/2017 Mammogram Completed 03/12/2014 83817 Xray Knee 3 Views Completed 02/26/2014 13281 Xray Knee 3 Views Completed 01/30/2014 92842 Xray Knee 3 Views Completed 01/14/2014 53305 TKR Total Knee Replacement Completed 01/14/2014 28253 TKR Total Knee Replacement Completed 01/08/2014 65101 EKG Tracing & Interpretation Completed 10/24/2013 08587 Xray Knee 3 Views Completed 10/24/2013 76285 Rad Exam; Knee, Ap&L Completed 09/12/2013 14602 Rad Exam; Knee, Ap&L Completed 08/16/2013 94239 Arthroscopy,Knee,Diagnostic, W Or W/O Synovial BX Completed 08/16/2013 81384 Arthroscopy Knee Osteochondral Allograft Completed 08/16/2013 18805 Arthroscopy Knee Osteochondral Allograft Completed 07/13/2013 88166 Xray Knee 3 Views Completed 06/07/2012 46554 Osteochondral Knee Autograft Open Completed 06/07/2012 96862 Reconstruction Of Disloc Patella W/Extensor Realignment Completed And/Or Mu 01/17/2012 55443 Arthroscopy, Knee,Surgical;Debridement/Shaving Completed Articular Cartldg 12/23/2011 64190 Xray Knee 3 Views Completed 12/23/2011 76254 Rad Exam; Knee, Ap&L Completed 10/05/2011 34333 Inject/Drain Joint/Bursa Major Completed 05/05/2011 65256 Arthroscopy,Knee,Meniscectomy Medial Or Lateral Completed 05/05/2011 03511 Arthroscopy,Knee,Meniscectomy Medial Or Lateral Completed 06/19/2010 17763 Arthroscopy, Knee,Surgical;Debridement/Shaving Completed Articular Cartldg 06/19/2010 25364 Arthroscopy, Knee,Surgical;Debridement/Shaving Completed Articular Cartldg 04/22/2010 Mammogram Completed 12/04/2008 Colonoscopy Completed Encounters Type Date Location Provider CPT E/M Dx Office Visit 03/04/2017 [facility] Internal Bessie [place], 28703 I82.492 9:40a Medicine - Joe Echevarria M79.605 Office Visit 02/15/2017 1:00p [facility] [place] [address] N64.4 [facility] R92.8 Office Visit 01/25/2017 10:20a [facility] Internal Medicine Cori Kaur, N.P. 54761 N64.4 - [place] R19.7 Office Visit 01/10/2017 10:00a [facility] Internal Medicine Cori Kaur, N.P. 50243 N64.4 - [place] L65.9 Z23 Office Visit 05/19/2016 9:00a [facility] Internal Medicine Cori Kaur, N.P. 21261 G47.00 - [place] G43.909 Office Visit 03/29/2016 10:00a [facility] Internal [facility] Cori Kaur, N.P. 07355 K21.9 - [place] M25.562 Office Visit 02/25/2016 10:45a [facility] Guille Jimenez, 59180 M25.562 Of Alistair Echevarria Z96.652 M25.552 Office Visit 01/30/2016 10:00a [facility] Internal Medicine Cori Kaur, N.P. 79378 M25.562 - [place] O90.89 R10.12 Z98.890 Z98.51 Office Visit 07/04/2015 2:00p [facility] Internal Medicine Cori Kaur, N.P. 85049 G89.4 - [place] Z3A.18 Office Visit 06/27/2015 2:40p [facility] Internal Medicine Cori Kaur, N.P. 22555 M25.562 - [place] Office Visit 04/03/2015 9:40a [facility] Internal Medicine Cori Kaur, N.P. 57825 Z32.01 - [place] Office Visit 01/09/2015 11:40a [facility] Internal Medicine Cori Kaur, N.P. 21739 R10.12 - [place] Z79.891 Office Visit 10/04/2014 11:40a [facility] Internal Medicine - Cori Kaur, N.P. 29337 577.0 [place] Office Visit 09/30/2014 1:20p [facility] Internal Medicine - Cori Kaur, N.P. 97635 577.0 [place] Office Visit 09/26/2014 8:59a [facility], Stephanie De León N.P. 85961 577.0 Hospitalists 571.1 296.20 300.00 Office Visit 09/25/2014 8:58a [facility], Stephanie De León N.P. 34421 577.0 Hospitalists 571.1 296.20 300.00 Office Visit 09/24/2014 8:58a [facility],[place] [address] 577.0 Hospitalists 571.1 296.20 300.00 Office Visit 09/23/2014 8:57a [facility] [address] 577.0 Hospitalists 571.1 296.20 300.00 Office Visit 09/22/2014 8:57a [facility] Angi Willis, PRISCA 05058 577.0 Hospitalists 571.1 296.20 300.00 Office Visit 09/21/2014 8:56a [facility], Angi Willis, PRISCA 70134 577.0 Hospitalists 571.1 296.20 300.00 Office Visit 09/20/2014 8:55a [facility] Ginger Lambert N.P. 14286 577.0 Hospitalists 571.1 296.20 300.00 Office Visit 09/19/2014 8:55a [facility] [place], [address] 577.0 Assoc,pc Hospitalists Swathi 296.20 300.00 Office Visit 09/18/2014 9:30a [facility] [place] [address] 789.06 - [place] Office Visit 08/29/2014 10:00a [facility] Internal Medicine Cori Kaur N.P. 89969 709.09 - [place] 995.29 Office Visit 08/14/2014 11:00a [facility] [place] [address] 709.8 [place] 709.09 Office Visit 07/16/2014 10:00a [facility] Internal Medicine Arnol Bonilla, 52918 053.9 - Joe Echevarria 788.1 Office Visit 06/11/2014 3:00p [facility] Ace, 96012 719.46 C.M.A. ANP-C Office Visit 06/10/2014 10:00a [facility] Internal Medicine Cori Kaur, N.P. 59689 311 - [place] 314.00 782.1 Office Visit 03/15/2014 2:30p [facility] [place] [address] 616.10 - [place] Office Visit 01/08/2014 1:00p [facility] Internal Medicine Cori Kaur, N.P. 01420 V72.84 - [place] 719.46 311 Office Visit 01/02/2014 8:45a [facility] Jimenez, 37102 715.16 C.M.A. MLois. Office Visit 11/28/2013 1:00p [facility], 57090 715.16 C.M.A. M.D. Office Visit 11/22/2013 10:00a [facility] Internal Medicine Cori Kaur, N.P. 25091 V70.0 - [place] V72.31 300.02 314.00 719.46 279.09 v03.82 V03.1 Office Visit 08/01/2013 1:15p [facility] Jimenez, 64464 733.43 C.M.A. M.Jewels. Office Visit 07/23/2013 11:00a [facility] Internal Medicine Nancy Maier M.D. 32350 786.2 - [place] Office Visit 07/16/2013 9:20a [facility] Internal Medicine Genesis Pizano M.D., 97272 788.1 - [place] FACP 786.2 616.10 Office Visit 07/13/2013 9:00a [facility] Jim[facility], 15627 717.7 C.M.ADottie Echevarria Office Visit 06/15/2013 1:00p [facility] Internal Medicine Cori Karu, N.P. 96821 616.10 - [place] 788.41 Office Visit 05/22/2013 11:00a [facility] Internal Medicine - Nancy Maier M.D. 13923 616.10 [place] Office Visit 04/09/2013 12:00p [facility] Internal Medicine - Nancy Maier M.D. 57598 788.1 [place] 616.10 338.4 Office Visit 03/09/2013 4:20p [facility] Internal Medicine Cori Kaur, N.P. 69169 338.4 - [place] Office Visit 03/06/2013 9:40a [facility] Internal Medicine Nancy Maier M.D. 09722 525.9 - [place] 300.02 Office Visit 01/30/2013 9:20a [facility] Internal Medicine - Nancy Maier M.D. 06353 338.4 [place] 292.0 300.02 626.0 V04.81 Office Visit 01/15/2013 9:20a [facility] Internal Medicine - Nancy Maier M.D. 84029 338.4 [place] 780.52 292.0 300.02 Office Visit 12/18/2012 12:40p [facility] Internal Medicine - Nancy Maier M.D. 27661 338.4 [place] 466.0 Office Visit 12/14/2012 9:20a [facility] Internal Medicine Cori Kaur, N.P. 42686 466.0 - [place] Office Visit 12/04/2012 10:20a [facility] Internal Medicine Nancy Maier M.D. 17379 338.4 - [place] 719.46 Office Visit 11/17/2012 1:40p [facility] Internal Medicine - Nancy Maier M.D. 03039 338.4 [place] 723.1 782.0 Office Visit 11/16/2012 4:00p [facility] Internal Medicine - Genesis Pizano M.D., 32921 782.0 [place] FACP Office Visit 11/13/2012 1:40p [facility] Internal Medicine - Nancy Maier M.D. 19761 723.1 [place] 338.4 Office Visit 11/06/2012 3:40p [facility] Internal Medicine Nancy Maier M.D. 22445 719.46 - [place] Office Visit 10/02/2012 11:20a [facility] Internal Medicine Nancy Maier M.D. 29800 719.46 - [place] Office Visit 09/11/2012 10:30a [facility] Ralph Partida 53957 717.7 Of Srikanth Real Office Visit 09/04/2012 12:40p [facility] Internal Medicine Nancy Maier M.D. 65605 719.46 - [place] Office Visit 08/11/2012 11:20a [facility] Internal Medicine Nancy Maier M.D. 25997 719.46 - [place] 078.11 Office Visit 06/02/2012 10:40a [facility] Internal Medicine Rebecca Peterson M.D. 60652 788.1 - [place] Office Visit 05/25/2012 11:30a [facility] Jimenez, 61978 719.46 Alistair Echevarria 715.96 717.7 Office Visit 04/26/2012 10:00a [facility] Internal Medicine Cori Kaur, N.P. 10956 599.0 - [place] Office Visit 04/19/2012 9:30a [facility] Jimenez M.D. 26570 717.7 C.MDottieADottie 719.46 Office Visit 03/02/2012 8:40a [facility] Internal Medicine Cori Kaur, N.P. 54470 719.46 - [place] Office Visit 02/03/2012 8:40a [facility] Internal Medicine Cori Kaur, N.P. 81619 719.46 - [place] Office Visit 01/03/2012 10:00a [facility] Internal Medicine Cori Kaur N.P. 82715 V04.81 - [place] 078.11 Office Visit 12/23/2011 9:00a [facility] Gu[facility] Jimenez M.D. 96233 717.7 C.M.A. Office Visit 12/17/2011 11:40a [facility] Internal Medicine Cori Kaur N.P. 96875 466.0 - [place] 078.11 Office Visit 11/30/2011 1:30p [facility] Obinna Mary M.D. 68028 716.96 Of C.M.A. Office Visit 11/18/2011 9:00a [facility] Internal Medicine Cori Kaur N.P. 82627 078.11 - [place] Office Visit 11/01/2011 9:30a [facility] Ralph Partida 07504 716.96 Of C.M.ADottie Osborne R.P.A.-Genesis Office Visit 10/25/2011 10:40a [facility] Internal Medicine Cori Kaur N.P. 44873 719.46 - [place] 078.11 Office Visit 10/05/2011 8:45a [facility] [place] Mary M.D. 63807 715.16 C.M.A. 716.96 Office Visit 08/23/2011 3:00p [facility] Internal Medicine Cori Kaur N.P. 34521 V70.0 - [place] V72.31 314.00 715.16 V06.1 Office Visit 08/06/2011 3:40p [facility] Internal Medicine - Nancy Maier M.D. 14016 719.46 [place] 716.96 836.1 Office Visit 07/01/2011 8:40a [facility] Internal Medicine Cori Kaur N.P. 78117 616.10 - [place] Office Visit 06/22/2011 3:40p [facility] Internal Medicine Nancy Maier M.D. 99416 719.46 - [place] Office Visit 04/26/2011 10:45a [facility] [place] Mary M.D. 57105 716.96 C.M.A. Office Visit 04/06/2011 8:40a [facility] Internal Medicine Cori Varn, N.P. 53591 616.10 - [place] 304.93 Office Visit 03/04/2011 1:00p DO Not Use Bessie Garrett, 47346 616.11 [facility] M.D. Office Visit 02/09/2011 10:00a DO Not Use Cori Varn, 14735 300.00 [facility] N.P. Office Visit 01/13/2011 10:40a DO Not Use Cori Varn, 75752 310.2 [facility] N.P. 719.46 V04.81 Office Visit 12/17/2010 10:40a DO Not Use [facility] Cori Varn, 58224 461.9 N.P. 307.81 300.00 783.21 Office Visit 12/01/2010 1:40p DO Not Use Cori Varn, 19215 300.00 [facility] N.P. 787.02 626.0 Office Visit 11/11/2010 9:40a DO Not Use Cori Varn, 21581 300.00 [facility] N.P. Office Visit 10/21/2010 11:20a DO Not Use Cori Varn, 04972 626.4 [facility] N.P. 706.1 Office Visit 10/14/2010 10:30a [facility] [place] Mary M.D. 39384 717.7 C.M.A. Office Visit 07/28/2010 1:00p DO Not Use Cori Varn, N.P. 47942 314.00 [facility] Office Visit 05/27/2010 1:30p DO Not Use [facility] M.D. [address] [facility] Office Visit 05/13/2010 10:00a DO Not Use Cori Varn, N.P. 48532 V70.0 [facility] V72.31 311 314.00 Office Visit 04/15/2010 11:15a DO Not Use [facility] Cori Varn, N.P. 74997 311 780.52 333.1 611.71 Office Visit 03/11/2010 1:15p DO Not Use [facility] Cori Varn, N.P. 74936 311 780.52 333.1 Office Visit 02/24/2010 4:15p DO Not Use Cori Varn, [id number] 616.10 [facility] N.[facility] 626.9 Office Visit 01/05/2010 9:15a DO Not Use [facility] [employer] Cori Varn, 12175 333.1 N.P. 706.1 Office Visit 11/28/2009 2:15p DO Not Use Cori Varn, 53661 314.00 [facility] N[facility] 311 Office Visit 06/09/2009 9:30a DO Not Use [facility] [employer] Cori Varn, 52437 848.8 N.P. Office Visit 04/22/2009 9:30a DO Not Use [facility] [employer] Cori Varn, 76430 706.1 N.P. 314.00 Office Visit 02/17/2009 10:45a DO Not Use [facility] [employer] Cori Varn, 07057 465.9 N.P. Office Visit 01/14/2009 2:45p DO Not Use [facility] [employer] Cori Varn, [id number] 311 N.P. Office Visit 12/18/2008 3:00p DO Not Use [facility] [employer] Cori Varn, 65491 784.0 N.P. 728.85 Office Visit 11/26/2008 10:00a DO Not Use [facility] [employer] Cori Varn, 75628 280.9 N.P. 724.2 780.79 V04.81 Office Visit 11/12/2008 10:00a DO Not Use Cori Varn, 49485 V72.31 [facility] [employer] N.P. 724.2 285.9 311 Plan of Care Future Appointment(s):04/28/2017 10:00 am - Cori Varn, N.P. at [facility] - Dagwrlcea55/30/2018 11:00 am - Araceli De León MD at [facility]03/04/2017 - Bessie Garrett M.D.I82.492 Acute embolism and thrombosis of deep vein of l low extremNew Medication:Warfarin Sodium 5 mgOxycodone HCL 5 mgComments:You have a clot in the veins in the left calf and the kneeWe are starting on warfarin - take this in the eveningYou will need to come in for blood test on Tuesday morningYou will have a test called INRWe will be making adjustments to the dose, frequently at first Take oxycodone for pain for the next weekFollow up:INR check on [id number] Pain in left legNew Medication:Cyclobenzaprine HCL 10 mg
[2017-04-05 20:27] LABS: Urine Appearance Cloudy; Urine Blood Negative (Negative); Urine Color Amber; Urine Ketones Negative (Negative); Urine Protein Negative (Negative); Urine Specific Gravity 1.019 (1.010-1.030); Urine Urobilinogen Negative (Negative)
[2017-04-05 20:47] LABS: ABS Basophils 0.1 10^3/ul (0-0.2); ABS Eosinophils 0.1 10^3/ul (0-0.6); ABS Lymphocytes 3.7 10^3/ul (1.0-4.8); ABS Monocytes 0.6 10^3/ul (0-0.8); ABS Neutrophils 6.5 10^3/ul (1.5-7.7); ABS Nucleated RBC 0 10^3/ul; Eosinophil % 1.3 % (0-6); Hematocrit 45 % (35-47); Hemoglobin 14.9 g/dl (12.0-16.0); Lymphocyte % 33.4 % (25-47); Mean Corpuscular HGB Conc 33 g/dl (31-36); Mean Corpuscular Hemoglobin 30 pg (27-31); Mean Corpuscular Volume 90 fL (80-97); Mean Platelet Volume 8 um3 (7.4-10.4); Nucleated Red Blood Cells % 0.1; Platelet Count 409 10^3/ul (150-450); Red Blood Count 4.98 10^6/ul (4.0-5.4); Red Cell Distribution Width 15 % (10.5-15)
[2017-04-05 21:07] LABS: INR 1.52 (0.77-1.02)
[2017-04-05] MEDS ORDERED: Al Hydrox/Mg Hydrox/Simet LIQ* 30 ML UDC PO ONE (22:42)
[2017-04-05] MEDS ORDERED: Lidocaine 2% VISCOUS* 15 ML UDC PO ONE (22:42)
[2017-04-05] MEDS ORDERED: Ondansetron ODT TAB* 4 MG PO ONE (22:42)
[2017-04-05] MEDS ORDERED: HYDROcodone/ACETAMIN 5-325 MG* 1 TAB PO ONE (22:42)
[2017-04-05] MEDS ORDERED: Metoclopramide IV* 5 MG/ML 2 ML VIAL IV SLOW PU ONE (23:32)
[2017-04-05] MEDS ORDERED: Morphine INJ* 4 MG/ML 1 ML CARPUJECT IV ONE (23:32)
[2017-04-05] MEDS ORDERED: diPHENhydraMINE PO* 25 MG ONE (23:39)
[2017-04-05] MEDS ORDERED: diPHENhydraMINE IV* 50 MG/ML 1 ml VIAL (BENADRYL) IV ONE (23:39)
[2017-04-06] MEDS ORDERED: Morphine INJ* 4 MG/ML 1 ML CARPUJECT IV ONE ×2 (01:03→03:21)
[2017-04-06] MEDS ORDERED: Iohexol 300* (CONTRAST) 10 ML SDV IV ONE (02:12)
[2017-04-06] MEDS ORDERED: Magnesium CITRATE* 300 ML BTL PO ONE (03:35)
[2017-04-06] MEDS ORDERED: Bisacodyl SUPP* 10 MG SUPP PR ONE (03:36)
[2017-04-06 04:18] VITALS: BP 123/69
--- NOTE | 2017-04-06 08:31 | RAD ---
CLINICAL HISTORY: Epigastric pain, nausea COMPARISON: September 19, 2014 TECHNIQUE: Multiple contiguous axial CT scans were obtained of the abdomen and pelvis after the administration of intravenous contrast. Coronal and sagittal multiplanar reformations are submitted for review. Oral contrast was administered. Delayed images were obtained through the abdomen and pelvis. FINDINGS: LUNG BASES: The lung bases are clear. LIVER: Again noted is a partially calcified cystic lesion of the right lobe of liver, stable calcified lesion of the right lobe of liver more medially.. BILE DUCTS: There is mild intrahepatic biliary dilatation. Common duct measures up to 1.4 cm in size. GALLBLADDER: The gallbladder is not visualized. Surgical clips are noted in the gallbladder fossa. PANCREAS: The pancreas is normal, without mass or ductal dilatation. The peripancreatic inflammatory change noted on the previous examination is no longer evident. SPLEEN: The spleen is small. There are multiple splenules which may reflect the sequela of previous trauma or infarction. This is stable from the previous examination. UPPER GI TRACT: Evaluation of the gastrointestinal tract is limited by incomplete gastric distention. The upper GI tract is unremarkable. SMALL BOWEL AND MESENTERY: The small bowel is normal in contour, course, and caliber. There is no obstruction or dilatation. COLON: The colon is normal in contour, course, caliber. There is no pericolonic inflammatory change. The appendix is not clearly visualized. There is no inflammatory changes in the right lower quadrant ADRENALS: Normal bilaterally. KIDNEYS: The kidneys are normal in shape, size, contour, and axis. There is no hydronephrosis or nephrolithiasis. BLADDER: The bladder is incompletely distended but is grossly normal. PELVIC ORGANS: The uterus and adnexa are grossly normal for technique. AORTA: The aorta is normal. IVC: Unremarkable LYMPH NODES: There is no lymphadenopathy by size criteria. ABDOMINAL WALL: There is no evidence for abdominal wall hernia. BONES AND SOFT TISSUES: Unremarkable OTHER: None IMPRESSION: 1. STATUS POST CHOLECYSTECTOMY. 2. BILIARY DILATATION.
--- NOTE | 2017-04-07 04:09 | ED ---
Fanta Smith Nilda, scribed for Maria E Skinner MD on 04/06/17 at 0014 . Progress - Progress Note Progress Note: Pt is s/o by Dr. Johnson, pending dispo, awaiting CT Abd/Pel. CT Abd/Pel, per radiologist, reveals: There is no free air. There is a stable peripherally enhancing 1.3 cm lesion in the dome of the liver likely cavernous hemangioma. There is a stable coarse calcification in the right lobe of the liver. There is prior cholecystectomy. There is mild prominence of the biliary radicles and bile duct. There is no obvious ductal calculus. There is no evidence of acute pancreatitis at this time. There is no hydronephrosis. There are no renal calculi. There is a moderate amount of stool noted in the colon. There is no evidence of intestinal obstruction. The appendix is not identified. There is no pericecal or right lower quadrant inflammatory process. Urinary bladder is partially decompressed. There are no bladder calculi. Dr. Skinner has reviewed this report. Reviewed with pt CT results. Pt will be D/C with Maxitrate and Dulcolax. Pt is advised to follow up with PCP. Dx constipation. Re-Evaluation - Re-Evaluation First Eval Re-Evaluation Time: 03:37 Comment: Reviewed CT and plan to D/C w pt. Course/Dx - Course Course Of Treatment: Pt is s/o by Dr. Johnson, pending dispo, awaiting CT Abd/ Pel. CT Abd/Pel, per radiologist, reveals: There is no free air. There is a stable peripherally enhancing 1.3 cm lesion in the dome of the liver likely cavernous hemangioma. There is a stable coarse calcification in the right lobe of the liver. There is prior cholecystectomy. There is mild prominence of the biliary radicles and bile duct. There is no obvious ductal calculus. There is no evidence of acute pancreatitis at this time. There is no hydronephrosis. There are no renal calculi. There is a moderate amount of stool noted in the colon. There is no evidence of intestinal obstruction. The appendix is not identified. There is no pericecal or right lower quadrant inflammatory process. Urinary bladder is partially decompressed. There are no bladder calculi. Dr. Skinner has reviewed this report. Reviewed with pt CT results. Pt will be D/C with Maxitrate and Dulcolax. Pt is advised to follow up with PCP. Dx constipation. - Diagnoses Provider Diagnoses: Constipation The documentation as recorded by the Fanta modi Nilda accurately reflects the service I personally performed and the decisions made by Brody corbin Abdul, MD.
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
== END 2017-04-06 04:17 ==
LOC: ED 17:10
DX: K59.00 Constipation, unspecified (principal); K83.9 Disease of biliary tract, unspecified; Z90.49 Acquired absence of other specified parts of digestive tract; Z88.5 Allergy status to narcotic agent; Z88.2 Allergy status to sulfonamides; Z88.8 Allergy status to other drugs, medicaments and biological substances
CPT/HCPCS: 36415; 74177; 80053; 81003; 83690; 84702; 85025; 85610; 85730; 86141; 96374; 99283; A9270-GY; J1200; J2270; Q9967

== ENCOUNTER 2017-08-31 12:19 | Emergency (ER) | payer BC, MEDICAID ==
[2017-08-31] MEDS ORDERED: Ondansetron ODT TAB* 4 MG PO ONE (12:42)
[2017-08-31] MEDS ORDERED: Morphine VIAL* 4 MG/ML VIAL (1 ml vial) IV ONE ×2 (12:42→15:09)
[2017-08-31 13:48] LABS: Urine Appearance Clear; Urine Blood 1+ (Negative); Urine Color Straw; Urine Ketones Negative (Negative); Urine Protein Negative (Negative); Urine Specific Gravity 1.004 (1.010-1.030); Urine Urobilinogen Negative (Negative)
[2017-08-31 13:59] LABS: ABS Basophils 0.1 10^3/ul (0-0.2); ABS Eosinophils 0.1 10^3/ul (0-0.6); ABS Lymphocytes 1.4 10^3/ul (1.0-4.8); ABS Monocytes 0.4 10^3/ul (0-0.8); ABS Neutrophils 8.5 10^3/ul (1.5-7.7); ABS Nucleated RBC 0 10^3/ul; Eosinophil % 0.9 % (0-6); Hematocrit 41 % (35-47); Hemoglobin 13.4 g/dl (12.0-16.0); Lymphocyte % 13.8 % (25-47); Mean Corpuscular HGB Conc 33 g/dl (31-36); Mean Corpuscular Hemoglobin 31 pg (27-31); Mean Corpuscular Volume 93 fL (80-97); Mean Platelet Volume 7.9 um3 (7.4-10.4); Nucleated Red Blood Cells % 0; Platelet Count 335 10^3/ul (150-450); Red Blood Count 4.34 10^6/ul (4.00-5.40); Red Cell Distribution Width 14 % (10.5-15); White Blood Count 10.5 10^3/ul (3.5-10.8)
[2017-08-31] MEDS: NS 0.9% 1000 ML* 1,000 ML IV ONE ×2 (14:03→14:05)
[2017-08-31 14:20] LABS: EGFR Non-African American 80.6 (>60)
[2017-08-31] MEDS ORDERED: Al Hydrox/Mg Hydrox/Simet LIQ* 30 ML UDC PO ONE (14:37)
[2017-08-31] MEDS ORDERED: Lidocaine 2% VISCOUS* 15 ML UDC PO ONE (14:37)
[2017-08-31 15:25] LABS: INR 1.09 (0.77-1.02)
[2017-08-31 16:48] VITALS: BP 129/84
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
== END 2017-08-31 16:47 | disposition home or self-care (01) ==
LOC: ED 12:19
DX: R10.9 Unspecified abdominal pain (principal); G89.29 Other chronic pain; K86.1 Other chronic pancreatitis; K27.9 Peptic ulcer, site unspecified, unspecified as acute or chronic, without hemorrhage or perforation; F41.8 Other specified anxiety disorders; M16.0 Bilateral primary osteoarthritis of hip; M17.0 Bilateral primary osteoarthritis of knee; Z90.49 Acquired absence of other specified parts of digestive tract; Z79.899 Other long term (current) drug therapy; Z88.5 Allergy status to narcotic agent; Z88.0 Allergy status to penicillin; Z88.2 Allergy status to sulfonamides
CPT/HCPCS: 36415; 80053; 81003; 81015; 82150; 83605; 83690; 84702; 85025; 85610; 86140; 96361; 96374; 96376; 99284; A9270-GY; J2270

== ENCOUNTER 2018-05-29 08:49 | Emergency (ER) | payer BC, MEDICAID ==
[2018-05-29 09:18] VITALS: BP 108/69
--- NOTE | 2018-05-29 09:23 | UC ---
Syncope/New Syncope HPI - HPI Summary HPI Summary: 42-year-old woman comes in with a chief complaint of left knee pain. She woke up this morning and felt foggy and fell down. She remembers the fall. When I asked her if she passed out she cannot tell me whether or not she lost consciousness and states she does not remember. She struck her head on the way down and also her right wrist and felt her left knee twist. Her boyfriend said she was shaking and wondering if she was having a seizure. She got up and then fell down again. Still feels foggy. No chest pain no palpitations. - History Of Current Complaint Chief Complaint: UCLowerExtremity Stated Complaint: KNEE INJURY Time Seen by Provider: 05/29/18 08:59 Hx Last Menstrual Period: [id number] Pain Intensity: 7 - Allergies/Home Medications Allergies/Adverse Reactions: Allergies Allergy/AdvReac Type Severity Reaction Status Date / Time ibuprofen Allergy GI Upset Verified 05/29/18 09:19 Latex, Natural Rubber Allergy Hives Verified 05/29/18 09:19 meperidine [From Demerol] Allergy See Comment Verified 05/29/18 09:19 prochlorperazine Allergy Swelling Verified 05/29/18 09:19 [From Compazine] Of Face,Lips,& Throat propoxyphene Allergy Swelling Verified 05/29/18 09:19 [From Darvocet-N 100] Of Face,Lips,& Throat Sulfa (Sulfonamide Allergy Swelling Verified 05/29/18 09:19 Antibiotics) CODEINE Allergy Intermediate Nausea Uncoded 05/29/18 09:19 REGLAN Allergy Unknown Anxiety Uncoded 05/29/18 09:19 PMH/Surg Hx/FS Hx/Imm Hx Previously Healthy: Yes - Hx Hepatitis GI/ History: Gastroesophageal Reflux Psychological History: Depression - Surgical History Surgical History: Yes Surgery Procedure, Year, and Place: 1995 SPLENECTOMY RT [facility] SECTION WITH TWINS. 1997 EXPLORATORY ABD. LAP. RT [facility]. 1997 GALLBLADDER RT [facility]. 1995 SMALL BOWEL RESECTION TR [facility]. 2013 Left Knee replacement. 2000 APPENDECTOMY [facility]. LEFT KNEE CARTILEDGE PLUG X 2. LEFT KNEE SCOPE [facility]. 04/2011 LEFT KNEE SCOPE [facility]. SINCE 1995 [facility] HAS HAD MANY PLASTIC SURGERIES ON FACE, LEG; ALSO MANY DENTAL PROCEDURES. RIGHT BREAST BIOPSY - Family History Known Family History: Positive: None Negative: Cardiac Disease, Hypertension - Social History Alcohol Use: Occasionally Alcohol Amount: few a week Substance Use Type: None Substance Use Comment - Amount & Last Used: percocet 5/325 2 tab qid Smoking Status (MU): Never Smoked Tobacco Type: Cigarettes Amount Used/How Often: "WHEN I'M STRESSED" Have You Smoked in the Last Year: No When Did the Patient Quit Smoking/Using Tobacco: march 2015, quit after finding out was preg Household Exposure Type: Cigarettes - Immunization History Most Recent Influenza Vaccination: fall 2013 Most Recent Tetanus Shot: 10/06/15 Most Recent Pneumonia Vaccination: 1995 Review of Systems All Other Systems Reviewed And Are Negative: Yes Constitutional: Positive: Fatigue, Other - Feels lightheaded Skin: Positive: Negative Eyes: Positive: Negative ENT: Positive: Negative Respiratory: Positive: Negative Cardiovascular: Positive: Negative Gastrointestinal: Positive: Negative Motor: Positive: Decreased ROM Neurovascular: Positive: Negative Musculoskeletal: Positive: Other: - see hpi Neurological: Positive: Headache Psychological: Positive: Negative Is Patient Immunocompromised?: No Physical Exam Triage Information Reviewed: Yes Appearance: No Pain Distress, Well-Nourished, Ill-Appearing - mild Vital Signs: Initial Vital Signs Temp 98.5 F 05/29/18 09:10 Pulse 88 05/29/18 09:10 Resp 18 05/29/18 09:10 BP 108/69 05/29/18 09:10 Pulse Ox 100 05/29/18 09:10 Vital Signs Reviewed: Yes Eye Exam: Normal Eyes: Positive: Conjunctiva Clear ENT Exam: Normal ENT: Positive: Pharynx normal, TMs normal - No hemotympanum Neck exam: Normal Neck: Positive: Supple, Nontender Respiratory: Positive: Lungs clear, Normal breath sounds, No respiratory distress Cardiovascular: Positive: RRR Musculoskeletal: Positive: Other: - Patient has an abrasion on the right forearm. He is also tender to palpation around the right orbit. Nose and cheek bones are nontender to palpation. Left knee is diffusely tender to palpation and has swelling. Neurological Exam: Normal Neurological: Positive: Muscle Tone Normal Psychological Exam: Normal Psychological: Positive: Age Appropriate Behavior Diagnostics - EKG Cardiac Rate: NL - at 0910 Cardiac Rhythm: Sinus: Normal - 84bpm Ectopy: None - Abnl R wave progression ST Segment: Normal Syncope Course/Dx - Course Course Of Treatment: Because of the patient's 2 near syncopal possibly syncopal episodes she is being transported to the emergency department by ambulance. - Differential Dx/Diagnosis Provider Diagnosis: Near syncope, Head injury, Contusion of right arm, Left knee pain Discharge - Sign-Out/Discharge Documenting (check all that apply): Patient Departure All imaging exams completed and their final reports reviewed: No Studies - Discharge Plan Condition: Stable Disposition: TRANS HIGHER LVL OF CARE FAC Referrals: Cori Kaur NP [Primary Care Provider] - - Billing Disposition and Condition Condition: STABLE Disposition: Trans Higher Lvl of Care Fac
[2018-05-29] MEDS ORDERED: NS 0.9% 1000 ML** 1,000 ML IV ONE (09:31)
== END 2018-05-29 10:09 | disposition short-term general hospital (02) ==
LOC: UCEAST 08:49
DX: S09.90XA Unspecified injury of head, initial encounter (principal); S40.021A Contusion of right upper arm, initial encounter; M25.562 Pain in left knee; R55 Syncope and collapse; Z91.040 Latex allergy status; Z88.2 Allergy status to sulfonamides; Z88.5 Allergy status to narcotic agent; Z88.8 Allergy status to other drugs, medicaments and biological substances; W19.XXXA Unspecified fall, initial encounter; Y92.9 Unspecified place or not applicable
CPT/HCPCS: 93005; 99213; G0463

== ENCOUNTER 2018-05-29 10:21 | Emergency (ER) | payer BC, MEDICAID ==
[2018-05-29] MEDS ORDERED: NS 0.9% 1000 ML** 1,000 ML IV ONE (10:48)
[2018-05-29] MEDS ORDERED: Ondansetron INJ* 2 MG/ML VIAL IV ONE (10:48)
[2018-05-29] MEDS ORDERED: Morphine 4 MG/ML VIAL (1 ml) 4 MG/ML VIAL IV ONE ×2 (10:50→13:42)
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
[2018-05-29 11:37] LABS: ABS Basophils 0.2 10^3/ul (0-0.2); ABS Eosinophils 0.1 10^3/ul (0-0.6); ABS Lymphocytes 1.5 10^3/ul (1.0-4.8); ABS Monocytes 0.6 10^3/ul (0-0.8); ABS Neutrophils 9.8 10^3/ul (1.5-7.7); ABS Nucleated RBC 0 10^3/ul; Eosinophil % 0.7 %; Hematocrit 38 % (35-47); Lymphocyte % 12.2 %; Mean Corpuscular HGB Conc 32 g/dl (31-36); Mean Corpuscular Hemoglobin 28 pg (27-31); Mean Corpuscular Volume 88 fL (80-97); Mean Platelet Volume 7.2 fL (7.4-10.4); Nucleated Red Blood Cells % 0; Platelet Count 446 10^3/ul (150-450); Red Blood Count 4.27 10^6/ul (4.00-5.40); Red Cell Distribution Width 15 % (10.5-15); White Blood Count 12.1 10^3/ul (3.5-10.8)
[2018-05-29 11:51] LABS: INR 1.06 (0.77-1.02)
[2018-05-29 11:56] LABS: ALT 16 U/L (7-52); AST 25 U/L (13-39); Albumin 4.4 g/dL (3.2-5.2); Albumin/Globulin Ratio 1.5 (1-3); Alkaline Phosphatase 58 U/L (34-104); Anion Gap 8 mmol/L (2-11); BUN/Creatinine Ratio 11.5 (8-20); Blood Urea Nitrogen 9 mg/dL (6-24); CO2 Carbon Dioxide 23 mmol/L (22-32); Calcium 9.1 mg/dL (8.6-10.3); Chloride 104 mmol/L (101-111); EGFR African American 98.5 (>60); EGFR Non-African American 81.4 (>60); Glucose 95 mg/dL (70-100); Potassium 4.1 mmol/L (3.5-5.0); Sodium 135 mmol/L (135-145); Total Protein 7.4 g/dL (6.4-8.9)
[2018-05-29 11:59] LABS: Troponin I 0.01 ng/mL (<0.04)
[2018-05-29 12:02] LABS: HCG Pregnancy < 0.60 mIU/mL
[2018-05-29] MEDS ORDERED: Pantoprazole IV* 40 MG IV ONE (12:52)
[2018-05-29] MEDS ORDERED: Lidocaine 2% VISCOUS* 15 ML UDC PO ONE (13:37)
[2018-05-29] MEDS ORDERED: Al Hydrox/Mg Hydrox/Simet LIQ* 30 ML UDC PO ONE (13:37)
[2018-05-29 14:17] VITALS: BP 117/97
== END 2018-05-29 14:50 | disposition home or self-care (01) ==
LOC: ED 10:21
DX: R55 Syncope and collapse (principal); R51 Headache; M25.569 Pain in unspecified knee; Z88.2 Allergy status to sulfonamides; K21.9 Gastro-esophageal reflux disease without esophagitis; M25.552 Pain in left hip; Z91.81 History of falling
CPT/HCPCS: 36415; 70450; 71046; 80053; 83605; 83690; 83880; 84484; 84702; 85025; 85610; 85730; 93005; 96361; 96374; 96375; 96376; 99284; A9270-GY; J2270; J2405

== ENCOUNTER 2018-06-29 09:05 | Day surgery (SDC) | payer BC, MEDICAID ==
[~2018-06-29 09:05] MED LIST: Buffered Lidocaine 1% SYRIN* 1 ML/SYRINGE INTRADERM ONE; Lactated Ringers 1000 ML Bag* 1,000 ML IV SCH; Sodium Citrate/Citric Acid* 15 ML UDC PO ONE
[2018-06-29] MEDS ORDERED: Sodium Citrate/Citric Acid* 15 ML UDC ONE (09:29)
[2018-06-29] MEDS ORDERED: Clindamycin 900 MG/D5W BAG(*) 0 MG/0 ML BAG IVPB ONE (09:29)
[2018-06-29] MEDS ORDERED: Bupivacaine 0.25% SDV* 30 ML ONE (11:27)
[2018-06-29] MEDS ORDERED: Ondansetron INJ* 2 MG/ML VIAL IV PRN (11:47)
[2018-06-29] MEDS ORDERED: Naloxone* 0.4 MG/ML 1 ML VIAL IV PRN (11:47)
[2018-06-29] MEDS ORDERED: fentaNYL* 50 MCG/ML 2 ML VIAL (100 MCG VIAL) ONE ×2 (11:52→13:41)
[2018-06-29] MEDS ORDERED: Propofol* 10 MG/ML 20 ML BTL ONE (11:54)
[2018-06-29] MEDS ORDERED: Lidocaine 2% PF * 5 ML VIAL ONE (11:54)
[2018-06-29] MEDS ORDERED: ceFAZolin 2 GM PREMIX in ORs 2 GM/50 ML BAG IVPB ONE (12:16)
[2018-06-29] MEDS ORDERED: HYDROcodone/ACETAMIN 5-325 MG* 1 TAB ONE (13:41)
[2018-06-29] MEDS: fentaNYL* 50 MCG/ML 2 ML VIAL (100 MCG VIAL) IV PRN ×4 (13:44→14:18)
[2018-06-29 14:52] VITALS: BP 99/71
--- NOTE | 2018-07-02 20:29 | OP ---
DATE OF OPERATION: 06/29/18 - [facility] DATE OF : 77 SURGEON: Carl Stephen MD LEAF SIZE PICKER: CASEY Bains. An child welfare assistant was needed for the procedure to aid in positioning of the arm and retraction. ANESTHESIA: General. 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 OPERATIVE PROCEDURE: 1. Left wrist denervation with excision of posterior interosseous nerve. 2. Excision of distal anterior interosseous nerve. INDICATIONS: Brenna has a fixed DISI deformity and some dorsal wrist pain and swelling. 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 I was concerned today if she had some capitolunate arthritis; however, her motion is excellent. Her pain is in the area of the dorsal carpus. I had told her that we could potentially do a scaphoid excision and four-corner fusion; however, given her excellent motion, radiographic findings, I want to see if we can get her more time, so I spoke with her again and did recommend a wrist denervation procedure and I told her I would at this time of surgery explore the capitolunate joint and see if I saw any arthritis there, but I do not want to do anything that would take away from her really excellent motion at this point. ESTIMATED BLOOD LOSS: 2 mL. COMPLICATIONS: None. FINDINGS: See above and below. DESCRIPTION OF PROCEDURE: Brenna was seen in the preoperative holding area. The correct side, site, and procedure were identified. We came back to the operating room. The arm was prepped and draped in the usual fashion. A time- out was performed. I made a dorsal midline incision just ulnar to Madhu's tubercle, extending down over the dorsal carpus and a little bit over the distal radius. Full thickness flap was raised off of the extensor retinaculum and I raised radial and ulnar flaps all the way radial and ulnar releasing the sensory branches from the overlying dorsal sensory nerves that were coming down to the capsule. This included the branch from the radial sensory nerve and from the dorsal ulnar sensory nerve. Once I had done this, I went ahead and opened up the extensor retinaculum over the third dorsal compartment. The EPL tendon was released and transposed and then released the fourth dorsal compartment and retracted those tendons out of the way. The posterior interosseous nerve and artery were dissected out and a 2 cm segment of posterior interosseous nerve was excised and handed off as a specimen distally. I then made an incision through the distal interosseous membrane and dissected down to encounter the anterior interosseous nerve. This was dissected out and then excised just about 2 cm proximal to the ulnar head trying to preserve the motor branches to the pronator quadratus. After I had excised both the anterior and interosseous nerve and released the dorsal sensory branches from the overlying sensory nerves, I did want to go ahead and take a look at the capitolunate joint and so I just made a small arthrotomy there and the joint looked very good. I did not see really much wear in the cartilage at all. I, therefore, irrigated out the wound. Arthrotomy was closed with a 4-0 PDS suture. The EPL tendon was transposed and the extensor retinaculum was closed with a 4-0 PDS suture. The skin was closed with 4-0 nylon. Marcaine was infiltrated around the operative area. Wounds were dressed and a well-padded cock-up wrist splint was applied. She was taken to the recovery room in stable condition. [id number]/[facility] #: [id number] CLAY
== END 2018-06-29 14:50 | disposition home or self-care (01) ==
LOC: OREAST 09:05
PROVIDERS: ATTEND Orthopaedic Surgery Hand Surgery
DX: M24.832 Other specific joint derangements of left wrist, not elsewhere classified (principal); G89.21 Chronic pain due to trauma; Z87.891 Personal history of nicotine dependence; F41.8 Other specified anxiety disorders; Z86.718 Personal history of other venous thrombosis and embolism; Z79.01 Long term (current) use of anticoagulants; K21.9 Gastro-esophageal reflux disease without esophagitis
CPT/HCPCS: 88302; A9270-GY; J0690; J2704; J3010

== ENCOUNTER 2022-11-17 09:05 | Inpatient (IN) ==
[2022-11-17] MEDS ORDERED: Lactated Ringers 1000 ml BAG 1,000 ML IV ONE ×2 (12:57→20:52)
[2022-11-17] MEDS ORDERED: cefTRIAXone 1 gm/50 mL D5W 1 GM/50 ML BAG IV ONE (12:57)
[2022-11-17] MEDS ORDERED: Ondansetron 4 mg VIAL 2 MG/ML 2 ml VIAL IV ONE ×2 (12:59→17:58)
[2022-11-17] MEDS ORDERED: Acetaminophen IV 1 GM/100ML 1,000 MG/100 ML BAG IV ONE ×2 (12:59→23:54)
[2022-11-17 13:45] LABS: Hematocrit 40.7 % (35-45); Hemoglobin 13.5 g/dL (11.5-14.3); Mean Corpuscular Hemoglobin 30.9 pg (27-33); Mean Corpuscular Hgb Conc 33.2 g/dL (31-36); Mean Corpuscular Volume 92.8 fL (80-97); Mean Platelet Volume 8.2 fL (7.5-11.2); Platelet Count 617 10^3/uL (150-450); Red Blood Count 4.38 10^6/uL (3.63-4.92); Red Cell Distribution Width 13.3 % (12-17); White Blood Count 23.3 10^3/uL (3.8-11.8)
[2022-11-17 13:52] LABS: ABS Basophils 0.1 10^3/uL (0.0-0.1); ABS Lymphocytes 0.6 10^3/uL (1.0-4.8); ABS Monocytes 0.6 10^3/uL (0.0-0.9); ABS Nucleated RBC 0.04 10^3/ul; Lymphocyte % 2.5 %; Nucleated Red Blood Cells % 0.2 /100 WBC (0.0-0.4)
[2022-11-17 14:01] LABS: INR 1.68 (0.83-1.13)
[2022-11-17 14:04] LABS: ALT 9 U/L (7-52); AST 26 U/L (13-39); Albumin 3.5 g/dL (3.2-5.2); Albumin/Globulin Ratio 1.2 (1-3); Alkaline Phosphatase 111 U/L (35-149); Anion Gap 11 mmol/L (2-16); Blood Urea Nitrogen 9 mg/dL (6-24); CO2 Carbon Dioxide 22 mmol/L (22-32); Calcium 8.8 mg/dL (8.6-10.3); Chloride 103 mmol/L (101-111); Creatinine, Serum 0.56 mg/dL (0.51-0.95); Glucose 115 mg/dL (70-100); Lipase < 10 U/L (11.0-82.0); Potassium 2.8 mmol/L (3.5-5.0); Sodium 136 mmol/L (135-145); Total Protein 6.5 g/dL (6.4-8.9); eGFR CKD-EPI 113.9 (>60)
[2022-11-17 14:10] LABS: HCG Pregnancy 24.24 mIU/mL
[2022-11-17] MEDS ORDERED: Morphine 4 MG/ML VIAL (1 ml) IV ONE ×2 (14:10→17:32)
[2022-11-17 14:11] LABS: Alcohol, S < 13 mg/dL (<13)
[2022-11-17 18:33] LABS: Urine Appearance Clear; Urine Bilirubin Negative (Negative); Urine Blood 1+ (Negative); Urine Color Straw; Urine Glucose Negative (Negative); Urine Ketones Negative (Negative); Urine Nitrite Negative (Negative); Urine Protein Negative (Negative); Urine Urobilinogen Negative (Negative)
[2022-11-17 18:38] LABS: Urine Bacteria Absent (Absent); Urine Red Blood Cell Trace(0-2/hpf) (Absent); Urine Squamous Epithelial Cell Present (Absent); Urine White Blood Cell Trace(0-5/hpf) (Absent)
[2022-11-17] MEDS ORDERED: Iohexol 350 (CONTRAST) 500 ML MDV IV ONE (19:52)
[2022-11-17] MEDS ORDERED: Potassium Chlor 20 meq TAB.ER PO ONE (22:53)
[2022-11-17] MEDS ORDERED: Acetaminophen IV 1 GM/100ML 1,000 MG/100 ML BAG IV PRN (23:37)
[2022-11-17] MEDS ORDERED: ERENUMAB AOOE 140 MG/ML SUBCUT SCH (23:45)
[2022-11-17] MEDS ORDERED: AUTO INJECTOR SUBCUT SCH (23:45)
[2022-11-17] MEDS: KCL 20 MEQ/100 ML IVPREMIX 20 MEQ/100 ML BAG IV SCH (23:56)
[2022-11-18] MEDS ORDERED: Azithromycin 500 mg/250 ml NS 500 MG/250 ML BAG IVPB SCH (00:04)
[2022-11-18] MEDS: Ondansetron 4 mg VIAL 2 MG/ML 2 ml VIAL IV PRN ×2 (01:54→09:08)
[2022-11-18] MEDS: Morphine 4 MG/ML VIAL (1 ml) IV PRN ×2 (02:25→09:09)
[2022-11-18] MEDS: KCL 20 MEQ/100 ML IVPREMIX 20 MEQ/100 ML BAG IV SCH ×4 (05:27→15:55)
[2022-11-18] MEDS ORDERED: Fluoxetine 40 mg CAP (NF) PO SCH (08:30)
[2022-11-18] MEDS ORDERED: Al Hydrox/Mg Hydrox/Simet LIQ 30 ML UDC PO PRN (08:48)
[2022-11-18] MEDS ORDERED: cefTRIAXone 1 gm/50 mL D5W 1 GM/50 ML BAG IV SCH (09:00)
[2022-11-18] MEDS ORDERED: BUPRENORPHINE HCL 150 MCG BUCCAL SCH (09:00)
[2022-11-18 09:09] LABS: ABS Basophils 0.1 10^3/uL (0.0-0.1); ABS Eosinophils 0.1 10^3/uL (0.0-0.5); ABS Lymphocytes 1.8 10^3/uL (1.0-4.8); ABS Monocytes 0.7 10^3/uL (0.0-0.9); ABS Nucleated RBC 0.01 10^3/ul; Hematocrit 41.6 % (35-45); Lymphocyte % 13.2 %; Mean Corpuscular Hemoglobin 31.5 pg (27-33); Mean Corpuscular Hgb Conc 33.5 g/dL (31-36); Mean Corpuscular Volume 93.8 fL (80-97); Mean Platelet Volume 8.1 fL (7.5-11.2); Platelet Count 602 10^3/uL (150-450); Red Blood Count 4.44 10^6/uL (3.63-4.92); Red Cell Distribution Width 13.3 % (12-17); White Blood Count 13.7 10^3/uL (3.8-11.8)
[2022-11-18] MEDS ORDERED: Morphine 4 MG/ML VIAL (1 ml) IV PRN (09:12)
[2022-11-18 09:36] LABS: C Reactive Protein 187.38 mg/L (<8.01); Calcium 8.6 mg/dL (8.6-10.3); Creatinine, Serum 0.52 mg/dL (0.51-0.95); Potassium 3.6 mmol/L (3.5-5.0)
[2022-11-18 10:08] LABS: TSH Ultra Thyroid Stim Horm 0.14 mcIU/mL (0.34-5.60)
[2022-11-18] MEDS: Acetaminophen IV 1 GM/100ML 1,000 MG/100 ML BAG IV PRN (11:18)
[2022-11-18] MEDS: Buprenorphine 2 mg SL TAB PO SCH ×2 (11:25→21:30)
[2022-11-18 12:28] LABS: High Sensitivity Troponin 1 Hr 5 pg/mL (<15)
[2022-11-18] MEDS: cefTRIAXone 1 gm/50 mL D5W 1 GM/50 ML BAG IV SCH (14:30)
[2022-11-18] MEDS ORDERED: KCL 20 MEQ/100 ML IVPREMIX 20 MEQ/100 ML BAG IV ONE (16:00)
[2022-11-18] MEDS ORDERED: Acetaminophen IV 1 GM/100ML 1,000 MG/100 ML BAG IV PRN (16:00)
[2022-11-19] MEDS: Acetaminophen IV 1 GM/100ML 1,000 MG/100 ML BAG IV PRN ×2 (01:55→17:51)
[2022-11-19] MEDS: Azithromycin 500 mg/250 ml NS 500 MG/250 ML BAG IVPB SCH (02:22)
[2022-11-19] MEDS: Ondansetron 4 mg VIAL 2 MG/ML 2 ml VIAL IV PRN ×3 (08:23→19:35)
[2022-11-19 08:53] LABS: ABS Basophils 0.1 10^3/uL (0.0-0.1); ABS Eosinophils 0.4 10^3/uL (0.0-0.5); ABS Lymphocytes 1.6 10^3/uL (1.0-4.8); ABS Neutrophils 9.9 10^3/uL (1.5-7.6); Eosinophil % 3.1 %; Hematocrit 37.7 % (35-45); Hemoglobin 12.7 g/dL (11.5-14.3); Lymphocyte % 12.2 %; Mean Corpuscular Hemoglobin 31.6 pg (27-33); Mean Corpuscular Hgb Conc 33.6 g/dL (31-36); Mean Corpuscular Volume 93.9 fL (80-97); Mean Platelet Volume 8.1 fL (7.5-11.2); Platelet Count 552 10^3/uL (150-450); Red Blood Count 4.02 10^6/uL (3.63-4.92); Red Cell Distribution Width 13.2 % (12-17)
[2022-11-19 09:16] LABS: Calcium 7.9 mg/dL (8.6-10.3); Creatinine, Serum 0.48 mg/dL (0.51-0.95); Magnesium 1.6 mg/dL (1.9-2.7); Potassium 3.3 mmol/L (3.5-5.0); eGFR CKD-EPI 118.2 (>60)
[2022-11-19] MEDS ORDERED: Magnesium Sulfate 2 gm BAG 2 GM/50 ML BAG IVPB ONE (09:37)
[2022-11-19] MEDS ORDERED: Potassium Chlor 20 meq TAB.ER PO ONE (09:37)
[2022-11-19] MEDS ORDERED: Naloxone Nasal Spray 4 MG/0.1 ML NASAL.SPR INTRANASAL PRN (10:13)
[2022-11-19] MEDS: Morphine 2 MG/ML SYRINGE IV PRN ×4 (10:48→23:42)
[2022-11-19] MEDS: Buprenorphine 2 mg SL TAB PO SCH ×3 (12:37→21:13)
[2022-11-19] MEDS: cefTRIAXone 1 gm/50 mL D5W 1 GM/50 ML BAG IV SCH (14:58)
[2022-11-19] MEDS: Albuterol/Ipratropium NEB.SOL (2.5/0.5 MG) 3 ML NEB.SOLN INH PRN (16:14)
[2022-11-19] MEDS: Calcium Carb (TUMS) 500 mg CHEW TAB PO PRN (17:50)
[2022-11-20] MEDS: Azithromycin 500 mg/250 ml NS 500 MG/250 ML BAG IVPB SCH (02:00)
[2022-11-20] MEDS: Morphine 2 MG/ML SYRINGE IV PRN ×3 (03:43→18:03)
[2022-11-20] MEDS: Acetaminophen IV 1 GM/100ML 1,000 MG/100 ML BAG IV PRN ×3 (05:31→23:50)
[2022-11-20 07:07] LABS: ABS Basophils 0.1 10^3/uL (0.0-0.1); ABS Eosinophils 0.2 10^3/uL (0.0-0.5); ABS Monocytes 0.9 10^3/uL (0.0-0.9); ABS Nucleated RBC 0.01 10^3/ul; Hematocrit 36.4 % (35-45); Hemoglobin 12.3 g/dL (11.5-14.3); Lymphocyte % 6.9 %; Mean Corpuscular Hemoglobin 31.7 pg (27-33); Mean Corpuscular Hgb Conc 33.8 g/dL (31-36); Mean Corpuscular Volume 93.8 fL (80-97); Mean Platelet Volume 8.4 fL (7.5-11.2); Platelet Count 543 10^3/uL (150-450); Red Blood Count 3.88 10^6/uL (3.63-4.92); Red Cell Distribution Width 13.1 % (12-17); White Blood Count 15.2 10^3/uL (3.8-11.8)
[2022-11-20 07:19] LABS: Calcium 7.5 mg/dL (8.6-10.3); Creatinine, Serum 0.56 mg/dL (0.51-0.95); Magnesium 1.8 mg/dL (1.9-2.7); Potassium 3.4 mmol/L (3.5-5.0); eGFR CKD-EPI 113.9 (>60)
[2022-11-20] MEDS: Ondansetron 4 mg VIAL 2 MG/ML 2 ml VIAL IV PRN ×4 (07:51→23:50)
[2022-11-20] MEDS ORDERED: Potassium Chlor 20 meq TAB.ER PO ONE (08:48)
[2022-11-20] MEDS ORDERED: Magnesium Sulfate 2 gm BAG 2 GM/50 ML BAG IVPB ONE (08:48)
[2022-11-20] MEDS: Buprenorphine 2 mg SL TAB PO SCH ×2 (09:46→20:49)
[2022-11-20] MEDS: cefTRIAXone 1 gm/50 mL D5W 1 GM/50 ML BAG IV SCH (13:45)
[2022-11-20] MEDS ORDERED: NS 0.9% 500 ml BAG 500 ML IV ONE (15:22)
[2022-11-20 15:41] LABS: Mycoplasma Pneumoniae PCR Negative; Mycoplasma Pneumoniae Source Nasal
[2022-11-21] MEDS: Albuterol/Ipratropium NEB.SOL (2.5/0.5 MG) 3 ML NEB.SOLN INH PRN (06:06)
[2022-11-21] MEDS: Calcium Carb (TUMS) 500 mg CHEW TAB PO PRN (06:23)
[2022-11-21 06:26] LABS: ABS Basophils 0.2 10^3/uL (0.0-0.1); ABS Eosinophils 0.3 10^3/uL (0.0-0.5); ABS Lymphocytes 2.7 10^3/uL (1.0-4.8); ABS Monocytes 0.9 10^3/uL (0.0-0.9); ABS Neutrophils 15.4 10^3/uL (1.5-7.6); Eosinophil % 1.5 %; Hematocrit 40.3 % (35-45); Hemoglobin 13.5 g/dL (11.5-14.3); Lymphocyte % 13.9 %; Mean Corpuscular Hemoglobin 31.7 pg (27-33); Mean Corpuscular Hgb Conc 33.5 g/dL (31-36); Mean Corpuscular Volume 94.7 fL (80-97); Mean Platelet Volume 7.9 fL (7.5-11.2); Platelet Count 486 10^3/uL (150-450); Red Blood Count 4.25 10^6/uL (3.63-4.92); Red Cell Distribution Width 13.4 % (12-17); White Blood Count 19.5 10^3/uL (3.8-11.8)
[2022-11-21 06:35] LABS: PCO2 Arterial 35 mmHg (35-45); PO2 Arterial 66 mmHg (80-100)
[2022-11-21 06:48] LABS: Anion Gap 11 mmol/L (2-16); Blood Urea Nitrogen 4 mg/dL (6-24); CO2 Carbon Dioxide 19 mmol/L (22-32); Calcium 7.6 mg/dL (8.6-10.3); Chloride 105 mmol/L (101-111); Creatinine, Serum 0.54 mg/dL (0.51-0.95); Glucose 107 mg/dL (70-100); Magnesium 1.9 mg/dL (1.9-2.7); Potassium 4.3 mmol/L (3.5-5.0); Sodium 135 mmol/L (135-145); eGFR CKD-EPI 114.9 (>60)
[2022-11-21] MEDS: Ondansetron 4 mg VIAL 2 MG/ML 2 ml VIAL IV PRN ×3 (07:04→20:55)
[2022-11-21] MEDS: Morphine 2 MG/ML SYRINGE IV PRN ×3 (07:30→14:50)
[2022-11-21] MEDS ORDERED: Morphine 2 MG/ML SYRINGE IV PRN (08:34)
[2022-11-21 08:52] LABS: Amylase < 10 U/L (29-103); Lipase < 10 U/L (11.0-82.0)
[2022-11-21] MEDS: Buprenorphine 2 mg SL TAB PO SCH ×2 (09:17→20:50)
[2022-11-21] MEDS ORDERED: Lorazepam PYXIS KEY PRN (11:43)
[2022-11-21] MEDS ORDERED: LORazepam 2 mg VIAL 1 ml IV PUSH PRN (11:43)
[2022-11-21] MEDS ORDERED: Iohexol 300 (CONTRAST) 10 ML SDV IV ONE (12:01)
[2022-11-21] MEDS: cefTRIAXone 1 gm/50 mL D5W 1 GM/50 ML BAG IV SCH (15:04)
[2022-11-22] MEDS: Morphine 2 MG/ML SYRINGE IV PRN ×6 (00:28→19:50)
[2022-11-22] MEDS: Ondansetron 4 mg VIAL 2 MG/ML 2 ml VIAL IV PRN ×2 (04:04→17:23)
[2022-11-22 05:28] LABS: ABS Basophils 0.1 10^3/uL (0.0-0.1); ABS Eosinophils 0.6 10^3/uL (0.0-0.5); ABS Lymphocytes 1.1 10^3/uL (1.0-4.8); ABS Monocytes 0.8 10^3/uL (0.0-0.9); ABS Neutrophils 16.2 10^3/uL (1.5-7.6); Eosinophil % 3.2 %; Hematocrit 36.1 % (35-45); Hemoglobin 12.2 g/dL (11.5-14.3); Lymphocyte % 5.9 %; Mean Corpuscular Hemoglobin 31.8 pg (27-33); Mean Corpuscular Hgb Conc 33.8 g/dL (31-36); Mean Corpuscular Volume 94.1 fL (80-97); Mean Platelet Volume 7.9 fL (7.5-11.2); Platelet Count 427 10^3/uL (150-450); Red Blood Count 3.84 10^6/uL (3.63-4.92); Red Cell Distribution Width 13.3 % (12-17); White Blood Count 18.8 10^3/uL (3.8-11.8)
[2022-11-22 05:43] LABS: Calcium 7.8 mg/dL (8.6-10.3); Creatinine, Serum 0.51 mg/dL (0.51-0.95); Potassium 3.9 mmol/L (3.5-5.0); eGFR CKD-EPI 116.5 (>60)
[2022-11-22] MEDS: Buprenorphine 2 mg SL TAB PO SCH ×2 (08:13→19:48)
[2022-11-22] MEDS ORDERED: Furosemide 20 mg/2 ml IV VIAL IV ONE ×2 (08:53→18:20)
[2022-11-22] MEDS: cefTRIAXone 1 gm/50 mL D5W 1 GM/50 ML BAG IV SCH (13:33)
[2022-11-22] MEDS ORDERED: Furosemide 20 mg/2 ml IV VIAL ONE (18:26)
[2022-11-22 20:32] LABS: Blood Urea Nitrogen 6 mg/dL (6-24); CO2 Carbon Dioxide 23 mmol/L (22-32); Calcium 8.4 mg/dL (8.6-10.3); Chloride 99 mmol/L (101-111); Creatinine, Serum 0.58 mg/dL (0.51-0.95); Glucose 108 mg/dL (70-100); Sodium 134 mmol/L (135-145)
[2022-11-22 20:38] LABS: Anion Gap 12 mmol/L (2-16)
[2022-11-23] MEDS: Ondansetron 4 mg VIAL 2 MG/ML 2 ml VIAL IV PRN ×2 (03:26→09:13)
[2022-11-23] MEDS: LORazepam 2 mg VIAL 1 ml IV PUSH PRN (03:35)
[2022-11-23] MEDS: Morphine 2 MG/ML SYRINGE IV PRN (03:37)
[2022-11-23 04:38] LABS: ABS Basophils 0.1 10^3/uL (0.0-0.1); ABS Eosinophils 0.8 10^3/uL (0.0-0.5); ABS Lymphocytes 1.6 10^3/uL (1.0-4.8); ABS Monocytes 0.5 10^3/uL (0.0-0.9); ABS Neutrophils 11.6 10^3/uL (1.5-7.6); Eosinophil % 5.7 %; Hematocrit 38.5 % (35-45); Hemoglobin 13.1 g/dL (11.5-14.3); Lymphocyte % 10.7 %; Mean Corpuscular Hemoglobin 31.6 pg (27-33); Mean Corpuscular Hgb Conc 34.1 g/dL (31-36); Mean Corpuscular Volume 92.9 fL (80-97); Mean Platelet Volume 7.9 fL (7.5-11.2); Platelet Count 437 10^3/uL (150-450); Red Blood Count 4.14 10^6/uL (3.63-4.92); Red Cell Distribution Width 13.4 % (12-17); White Blood Count 14.6 10^3/uL (3.8-11.8)
[2022-11-23 04:55] LABS: Calcium 8.4 mg/dL (8.6-10.3); Creatinine, Serum 0.58 mg/dL (0.51-0.95); Potassium 3.4 mmol/L (3.5-5.0)
[2022-11-23] MEDS ORDERED: Potassium Chloride LIQUID 20 MEQ/15 ML LIQUID PO ONE (07:53)
[2022-11-23] MEDS: Buprenorphine 2 mg SL TAB PO SCH ×2 (09:26→20:18)
[2022-11-23] MEDS ORDERED: Furosemide 40 mg/4 ml IV VIAL IV ONE (10:08)
[2022-11-23] MEDS: cefTRIAXone 1 gm/50 mL D5W 1 GM/50 ML BAG IV SCH (13:25)
[2022-11-23] MEDS ORDERED: methylPREDNISolone SOD SUCC 40 mg/ml 1 ml VIAL IV SCH (18:00)
[2022-11-23] MEDS: methylPREDNISolone SOD SUCC 40 mg/ml 1 ml VIAL IV SCH (19:56)
[2022-11-24] MEDS: methylPREDNISolone SOD SUCC 40 mg/ml 1 ml VIAL IV SCH ×4 (00:54→18:23)
[2022-11-24] MEDS: Ondansetron 4 mg VIAL 2 MG/ML 2 ml VIAL IV PRN ×3 (02:03→16:13)
[2022-11-24] MEDS: Morphine 2 MG/ML SYRINGE IV PRN ×3 (02:06→21:24)
[2022-11-24 06:15] LABS: ABS Lymphocytes 0.7 10^3/uL (1.0-4.8); ABS Monocytes 0.1 10^3/uL (0.0-0.9); ABS Neutrophils 10.5 10^3/uL (1.5-7.6); ABS Nucleated RBC 0.01 10^3/ul; Eosinophil % 0.1 %; Hematocrit 44.5 % (35-45); Hemoglobin 14.9 g/dL (11.5-14.3); Lymphocyte % 6.2 %; Mean Corpuscular Hemoglobin 31.2 pg (27-33); Mean Corpuscular Hgb Conc 33.5 g/dL (31-36); Mean Corpuscular Volume 93.1 fL (80-97); Mean Platelet Volume 8.4 fL (7.5-11.2); Nucleated Red Blood Cells % 0.1 /100 WBC (0.0-0.4); Platelet Count 471 10^3/uL (150-450); Red Blood Count 4.78 10^6/uL (3.63-4.92); Red Cell Distribution Width 13.6 % (12-17); White Blood Count 11.4 10^3/uL (3.8-11.8)
[2022-11-24] MEDS ORDERED: Potassium EFFERVES 25 meq TAB PO ONE (06:54)
[2022-11-24 06:59] LABS: Calcium 8.7 mg/dL (8.6-10.3); Potassium 4.3 mmol/L (3.5-5.0)
[2022-11-24 07:05] LABS: Creatinine, Serum 0.54 mg/dL (0.51-0.95); eGFR CKD-EPI 114.9 (>60)
[2022-11-24] MEDS: Buprenorphine 2 mg SL TAB PO SCH ×2 (07:48→21:26)
[2022-11-24] MEDS ORDERED: Lidocaine 1% MPF 5 ML VIAL INJ ONE (08:44)
[2022-11-24] MEDS ORDERED: Furosemide 40 mg/4 ml IV VIAL IV ONE (15:42)
[2022-11-24] MEDS: LORazepam 2 mg VIAL 1 ml IV PUSH PRN (18:40)
[2022-11-25] MEDS: methylPREDNISolone SOD SUCC 40 mg/ml 1 ml VIAL IV SCH ×4 (00:39→16:58)
[2022-11-25] MEDS: Morphine 2 MG/ML SYRINGE IV PRN ×4 (00:43→19:17)
[2022-11-25 03:31] LABS: Hemoglobin 13.7 g/dL (11.5-14.3); Mean Corpuscular Hemoglobin 31.2 pg (27-33); Mean Corpuscular Hgb Conc 33.5 g/dL (31-36); Mean Platelet Volume 8.1 fL (7.5-11.2); Platelet Count 511 10^3/uL (150-450); Red Blood Count 4.41 10^6/uL (3.63-4.92); Red Cell Distribution Width 13.3 % (12-17); White Blood Count 24.9 10^3/uL (3.8-11.8)
[2022-11-25 03:46] LABS: Albumin 2.9 g/dL (3.2-5.2); Calcium 8.5 mg/dL (8.6-10.3); Potassium 3.3 mmol/L (3.5-5.0); Total Bilirubin 0.2 mg/dL (0.2-1.0)
[2022-11-25 03:52] LABS: Albumin/Globulin Ratio 0.9 (1-3); Creatinine, Serum 0.64 mg/dL (0.51-0.95); Globulin 3.4 g/dL (2-4); Total Protein 6.3 g/dL (6.4-8.9); eGFR CKD-EPI 110.3 (>60)
[2022-11-25 04:10] LABS: ABS Eosinophils 0.1 10^3/uL (0.0-0.5); ABS Lymphocytes 1.2 10^3/uL (1.0-4.8); ABS Monocytes 0.6 10^3/uL (0.0-0.9); ABS Nucleated RBC 0.01 10^3/ul; Eosinophil % 0.2 %; Lymphocyte % 4.7 %
[2022-11-25] MEDS ORDERED: Potassium EFFERVES 25 meq TAB PO ONE (05:16)
[2022-11-25] MEDS: Ondansetron 4 mg VIAL 2 MG/ML 2 ml VIAL IV PRN ×3 (07:04→19:18)
[2022-11-25] MEDS ORDERED: KCL 20 MEQ/100 ML IVPREMIX 20 MEQ/100 ML BAG IV ONE (07:15)
[2022-11-25] MEDS: Buprenorphine 2 mg SL TAB PO SCH ×2 (09:10→20:05)
[2022-11-25] MEDS: Senna TAB 8.6 mg TAB PO SCH (20:05)
[2022-11-26] MEDS: methylPREDNISolone SOD SUCC 40 mg/ml 1 ml VIAL IV SCH ×4 (00:10→17:26)
[2022-11-26 04:25] LABS: Hematocrit 39.1 % (35-45); Mean Corpuscular Hgb Conc 33.4 g/dL (31-36); Mean Corpuscular Volume 92.9 fL (80-97); Mean Platelet Volume 8.1 fL (7.5-11.2); Platelet Count 481 10^3/uL (150-450); Red Blood Count 4.21 10^6/uL (3.63-4.92); Red Cell Distribution Width 13.3 % (12-17); White Blood Count 23.8 10^3/uL (3.8-11.8)
[2022-11-26 04:26] LABS: ABS Basophils 0.1 10^3/uL (0.0-0.1); ABS Monocytes 0.6 10^3/uL (0.0-0.9); ABS Neutrophils 22.2 10^3/uL (1.5-7.6); ABS Nucleated RBC 0.01 10^3/ul; Lymphocyte % 4.2 %
[2022-11-26 04:39] LABS: Calcium 8.3 mg/dL (8.6-10.3)
[2022-11-26] MEDS: Morphine 2 MG/ML SYRINGE IV PRN ×6 (04:39→21:41)
[2022-11-26 04:44] LABS: Creatinine, Serum 0.59 mg/dL (0.51-0.95); eGFR CKD-EPI 112.5 (>60)
[2022-11-26] MEDS: Buprenorphine 2 mg SL TAB PO SCH ×2 (07:45→19:15)
[2022-11-26] MEDS ORDERED: Albuterol/Ipratropium NEB.SOL (2.5/0.5 MG) 3 ML NEB.SOLN INH PRN (14:20)
[2022-11-26] MEDS: Albuterol/Ipratropium NEB.SOL (2.5/0.5 MG) 3 ML NEB.SOLN INH PRN (14:29)
[2022-11-26] MEDS: Senna TAB 8.6 mg TAB PO SCH (19:19)
[2022-11-27] MEDS: methylPREDNISolone SOD SUCC 40 mg/ml 1 ml VIAL IV SCH ×4 (01:55→17:06)
[2022-11-27] MEDS: Morphine 2 MG/ML SYRINGE IV PRN ×7 (01:56→20:31)
[2022-11-27 04:17] LABS: Hematocrit 38.7 % (35-45); Hemoglobin 13.1 g/dL (11.5-14.3); Mean Corpuscular Hemoglobin 31.6 pg (27-33); Mean Corpuscular Hgb Conc 33.8 g/dL (31-36); Mean Corpuscular Volume 93.4 fL (80-97); Mean Platelet Volume 8.2 fL (7.5-11.2); Platelet Count 470 10^3/uL (150-450); Red Blood Count 4.15 10^6/uL (3.63-4.92); Red Cell Distribution Width 13.7 % (12-17); White Blood Count 22.5 10^3/uL (3.8-11.8)
[2022-11-27 04:22] LABS: ABS Basophils 0.1 10^3/uL (0.0-0.1); ABS Monocytes 0.8 10^3/uL (0.0-0.9); ABS Neutrophils 20.6 10^3/uL (1.5-7.6); ABS Nucleated RBC 0.01 10^3/ul; Lymphocyte % 4.5 %
[2022-11-27 04:29] LABS: Calcium 8.4 mg/dL (8.6-10.3); Magnesium 2.1 mg/dL (1.9-2.7); Potassium 3.6 mmol/L (3.5-5.0)
[2022-11-27 04:35] LABS: Creatinine, Serum 0.61 mg/dL (0.51-0.95); eGFR CKD-EPI 111.6 (>60)
[2022-11-27] MEDS: Buprenorphine 2 mg SL TAB PO SCH ×2 (09:03→20:42)
[2022-11-27] MEDS: Ondansetron 4 mg VIAL 2 MG/ML 2 ml VIAL IV PRN ×2 (18:07→22:23)
[2022-11-27] MEDS: Senna TAB 8.6 mg TAB PO SCH (20:40)
[2022-11-28] MEDS: methylPREDNISolone SOD SUCC 40 mg/ml 1 ml VIAL IV SCH ×4 (00:36→17:58)
[2022-11-28] MEDS: Morphine 2 MG/ML SYRINGE IV PRN ×7 (00:52→21:00)
[2022-11-28 04:43] LABS: Hematocrit 41.4 % (35-45); Mean Corpuscular Hemoglobin 31.5 pg (27-33); Mean Corpuscular Hgb Conc 33.8 g/dL (31-36); Mean Corpuscular Volume 93.2 fL (80-97); Mean Platelet Volume 8.4 fL (7.5-11.2); Platelet Count 447 10^3/uL (150-450); Red Blood Count 4.44 10^6/uL (3.63-4.92); White Blood Count 21.6 10^3/uL (3.8-11.8)
[2022-11-28 05:00] LABS: Calcium 8.5 mg/dL (8.6-10.3); Creatinine, Serum 0.57 mg/dL (0.51-0.95); Magnesium 2.2 mg/dL (1.9-2.7); Phosphorus 2.6 mg/dL (2.5-5.0); Potassium 3.5 mmol/L (3.5-5.0); eGFR CKD-EPI 113.4 (>60)
[2022-11-28 05:24] LABS: ABS Lymphocytes 0.8 10^3/uL (1.0-4.8); ABS Monocytes 0.6 10^3/uL (0.0-0.9); ABS Neutrophils 20.2 10^3/uL (1.5-7.6); ABS Nucleated RBC 0.02 10^3/ul; Lymphocyte % 3.9 %; Nucleated Red Blood Cells % 0.1 /100 WBC (0.0-0.4)
[2022-11-28] MEDS: Ondansetron 4 mg VIAL 2 MG/ML 2 ml VIAL IV PRN ×2 (08:09→18:05)
[2022-11-28] MEDS: Buprenorphine 2 mg SL TAB PO SCH ×2 (08:13→20:51)
[2022-11-28] MEDS: Nystatin SUSPENSION 100,000 UNITS/ML UDC PO SCH ×3 (11:41→20:50)
[2022-11-28] MEDS: Senna TAB 8.6 mg TAB PO SCH (20:52)
[2022-11-29] MEDS: methylPREDNISolone SOD SUCC 40 mg/ml 1 ml VIAL IV SCH ×4 (00:02→18:26)
[2022-11-29] MEDS: Morphine 2 MG/ML SYRINGE IV PRN ×3 (06:25→14:24)
[2022-11-29] MEDS: Buprenorphine 2 mg SL TAB PO SCH ×2 (08:03→20:35)
[2022-11-29] MEDS: Nystatin SUSPENSION 100,000 UNITS/ML UDC PO SCH ×4 (08:07→20:37)
[2022-11-29 08:56] LABS: Hematocrit 38.6 % (35-45); Mean Corpuscular Hemoglobin 31.1 pg (27-33); Mean Corpuscular Hgb Conc 33.8 g/dL (31-36); Mean Corpuscular Volume 92.1 fL (80-97); Mean Platelet Volume 8.2 fL (7.5-11.2); Platelet Count 427 10^3/uL (150-450); Red Blood Count 4.19 10^6/uL (3.63-4.92); Red Cell Distribution Width 13.2 % (12-17); White Blood Count 22.3 10^3/uL (3.8-11.8)
[2022-11-29 09:28] LABS: Creatinine, Serum 0.55 mg/dL (0.51-0.95); Potassium 3.4 mmol/L (3.5-5.0); eGFR CKD-EPI 114.4 (>60)
[2022-11-29] MEDS ORDERED: Potassium Chlor 20 meq TAB.ER PO ONE (09:42)
[2022-11-29 10:02] LABS: ABS Lymphocytes 0.7 10^3/uL (1.0-4.8); ABS Monocytes 0.6 10^3/uL (0.0-0.9); ABS Neutrophils 20.9 10^3/uL (1.5-7.6); ABS Nucleated RBC 0.01 10^3/ul; Lymphocyte % 3.2 %
[2022-11-29] MEDS: Ondansetron 4 mg VIAL 2 MG/ML 2 ml VIAL IV PRN (12:13)
[2022-11-29 14:17] LABS: Cyclic Citrullinated Peptide <15.6 U
[2022-11-29] MEDS: Senna TAB 8.6 mg TAB PO SCH (20:37)
[2022-11-30] MEDS: methylPREDNISolone SOD SUCC 40 mg/ml 1 ml VIAL IV SCH ×2 (00:16→09:38)
[2022-11-30 09:12] LABS: Hematocrit 39.7 % (35-45); Hemoglobin 13.1 g/dL (11.5-14.3); Mean Corpuscular Hemoglobin 30.7 pg (27-33); Mean Corpuscular Volume 93.2 fL (80-97); Mean Platelet Volume 8.8 fL (7.5-11.2); Platelet Count 424 10^3/uL (150-450); Red Blood Count 4.26 10^6/uL (3.63-4.92); Red Cell Distribution Width 13.5 % (12-17); White Blood Count 24.3 10^3/uL (3.8-11.8)
[2022-11-30 09:18] LABS: ABS Lymphocytes 0.7 10^3/uL (1.0-4.8); ABS Monocytes 0.7 10^3/uL (0.0-0.9); ABS Nucleated RBC 0.01 10^3/ul; Lymphocyte % 2.7 %
[2022-11-30] MEDS: Nystatin SUSPENSION 100,000 UNITS/ML UDC PO SCH ×4 (09:32→21:09)
[2022-11-30] MEDS: Buprenorphine 2 mg SL TAB PO SCH (09:34)
[2022-11-30 10:01] LABS: Calcium 7.9 mg/dL (8.6-10.3); Creatinine, Serum 0.56 mg/dL (0.51-0.95); Potassium 4.1 mmol/L (3.5-5.0); eGFR CKD-EPI 113.9 (>60)
[2022-11-30] MEDS ORDERED: Morphine ER 15 mg TAB ** extended release PO SCH (11:45)
[2022-11-30 14:10] LABS: Adenovirus Undetected (Undetected); Bordetella parapertussis Undetected (Undetected); Bordetella pertussis Undetected (Undetected); Chlamydophila pneumoniae Undetected (Undetected); Coronavirus 229E Undetected (Undetected); Coronavirus HKU1 Undetected (Undetected); Coronavirus NL63 Undetected (Undetected); Coronavirus OC43 Undetected (Undetected); Human Metapneumovirus Undetected (Undetected); Human Rhinovirus/Enterovirus Undetected (Undetected); Influenza A Undetected (Undetected); Influenza B Undetected (Undetected); Mycoplasmoides pneumoniae Undetected (Undetected); Parainfluenza Virus 1 Undetected (Undetected); Parainfluenza Virus 2 Undetected (Undetected); Parainfluenza Virus 3 Undetected (Undetected); Parainfluenza Virus 4 Undetected (Undetected); Respiratory Syncytial Virus Undetected (Undetected); Specimen Source NASOPHARYNGEAL SWAB
[2022-11-30] MEDS: Senna TAB 8.6 mg TAB PO SCH (21:42)
[2022-12-01 08:10] LABS: ABS Basophils 0.1 10^3/uL (0.0-0.1); ABS Lymphocytes 1.7 10^3/uL (1.0-4.8); ABS Monocytes 1.3 10^3/uL (0.0-0.9); ABS Neutrophils 19.4 10^3/uL (1.5-7.6); Eosinophil % 0.2 %; Hematocrit 37.7 % (35-45); Hemoglobin 12.8 g/dL (11.5-14.3); Lymphocyte % 7.6 %; Mean Corpuscular Hemoglobin 31.2 pg (27-33); Mean Corpuscular Hgb Conc 33.8 g/dL (31-36); Mean Corpuscular Volume 92.2 fL (80-97); Mean Platelet Volume 8.8 fL (7.5-11.2); Platelet Count 384 10^3/uL (150-450); Red Blood Count 4.09 10^6/uL (3.63-4.92); Red Cell Distribution Width 13.6 % (12-17); White Blood Count 22.6 10^3/uL (3.8-11.8)
[2022-12-01 08:30] LABS: Calcium 7.5 mg/dL (8.6-10.3); Creatinine, Serum 0.56 mg/dL (0.51-0.95); eGFR CKD-EPI 113.9 (>60)
[2022-12-01] MEDS ORDERED: Benzocaine/Menthol LOZ PO PRN (08:51)
[2022-12-01] MEDS: Nystatin SUSPENSION 100,000 UNITS/ML UDC PO SCH ×4 (09:09→20:28)
[2022-12-01] MEDS: Potassium Chlor 20 meq TAB.ER PO SCH ×2 (12:41→18:42)
[2022-12-01] MEDS: Senna TAB 8.6 mg TAB PO SCH (20:33)
[2022-12-02] MEDS: Ondansetron 4 mg VIAL 2 MG/ML 2 ml VIAL IV PRN (06:05)
[2022-12-02 06:38] LABS: ABS Eosinophils 0.1 10^3/uL (0.0-0.5); ABS Neutrophils 11.5 10^3/uL (1.5-7.6); ABS Nucleated RBC 0.01 10^3/ul; Eosinophil % 0.5 %; Hematocrit 38.6 % (35-45); Hemoglobin 12.7 g/dL (11.5-14.3); Lymphocyte % 13.5 %; Mean Corpuscular Hemoglobin 30.5 pg (27-33); Mean Corpuscular Hgb Conc 32.9 g/dL (31-36); Mean Corpuscular Volume 92.8 fL (80-97); Mean Platelet Volume 9.4 fL (7.5-11.2); Nucleated Red Blood Cells % 0.1 /100 WBC (0.0-0.4); Platelet Count 349 10^3/uL (150-450); Red Blood Count 4.15 10^6/uL (3.63-4.92); Red Cell Distribution Width 13.9 % (12-17); White Blood Count 14.6 10^3/uL (3.8-11.8)
[2022-12-02 07:05] LABS: Calcium 7.5 mg/dL (8.6-10.3); Creatinine, Serum 0.55 mg/dL (0.51-0.95); eGFR CKD-EPI 114.4 (>60)
[2022-12-02] MEDS: Nystatin SUSPENSION 100,000 UNITS/ML UDC PO SCH ×2 (08:54→14:52)
[2022-12-02 10:22] VITALS: BP 118/75
== END 2022-12-02 14:50 | disposition home or self-care (01) | DRG 720 ==
LOC: ED 09:05 → EDHOLD 09:05 → SUATTDRO 23:25 → MED 11-18 09:55 → SUATTDRO 11-19 13:07 → ICU 11-21 08:20 → SSU 11-28 09:56
PROVIDERS: ADMIT Internal Medicine; ATTEND Internal Medicine